=== PATIENT | male | born 1980 | race Caucasian/White ===

== ENCOUNTER 2017-12-03 11:15 | Emergency (ER) | payer OTHER, SELFPAY ==
[2017-12-03 16:08] LABS: BASO # 0.1 10^3/uL (0.0-0.2); BASO % 0.6 % (0.0-1.0); EOS # 0.4 10^3/uL (0.0-0.50); EOS % 4.8 % (0.0-3.0); HEMATOCRIT 49.7 % (42.0-52.0); HEMOGLOBIN 16.7 g/dl (14.0-18.0); IMMATURE GRANULOCYTE % 0.5 % (0-3.0); LYMPH # 2.4 10^3/uL (1.5-4.5); LYMPH % 28.9 % (24.0-44.0); MEAN CORPUSCULAR HEMOGLOBIN 30.8 pg (27.0-33.0); MEAN CORPUSCULAR HGB CONC 33.6 g/dl (32.0-36.5); MEAN CORPUSCULAR VOLUME 91.7 fl (80.0-96.0); MONO # 0.5 10^3/uL (0.0-0.8); MONO % 6.3 % (0.0-5.0); NEUTROPHILS # 4.8 10^3/uL (1.8-7.7); NEUTROPHILS % 58.9 % (36.0-66.0); PLATELET COUNT, AUTOMATED 160 10^3/uL (150-450); RED BLOOD COUNT 5.42 10^6/uL (4.30-6.10); RED CELL DISTRIBUTION WIDTH 12.5 % (11.5-14.5); WHITE BLOOD COUNT 8.1 10^3/uL (4.0-10.0)
[2017-12-03 16:29] LABS: POS COUNT POS FLAG
[2017-12-03 16:33] LABS: ANION GAP 8 MEQ/L (8-16); BLOOD UREA NITROGEN 14 MG/DL (7-18); CALCIUM LEVEL 8.9 MG/DL (8.5-10.1); CARBON DIOXIDE LEVEL 24 MEQ/L (21-32); CHLORIDE LEVEL 107 MEQ/L (98-107); CREATININE FOR GFR 0.92 MG/DL (0.70-1.30); GLOMERULAR FILTRATION RATE > 60.0 (>60); GLUCOSE, FASTING 79 MG/DL (70-100); NT-PRO BNP 59 PG/ML (<125); POTASSIUM SERUM 4.1 MEQ/L (3.5-5.1); SODIUM LEVEL 139 MEQ/L (136-145)
== END 2017-12-03 16:41 | disposition home or self-care (01) ==
LOC: M ED 11:15
DX: I10 Essential (primary) hypertension (principal); B18.2 Chronic viral hepatitis C; F17.200 Nicotine dependence, unspecified, uncomplicated

== ENCOUNTER → 2017-12-14 | Outpatient (REF) | payer OTHER ==
[2017-12-14 19:13] LABS: HEMATOCRIT 44.9 % (42.0-52.0); MEAN CORPUSCULAR HEMOGLOBIN 30.6 pg (27.0-33.0); MEAN CORPUSCULAR HGB CONC 33.4 g/dl (32.0-36.5); MEAN CORPUSCULAR VOLUME 91.6 fl (80.0-96.0); PLATELET COUNT, AUTOMATED 243 10^3/uL (150-450); RED CELL DISTRIBUTION WIDTH 12.4 % (11.5-14.5); WHITE BLOOD COUNT 9.2 10^3/uL (4.0-10.0)
[2017-12-14 19:31] LABS: ALBUMIN 4.3 GM/DL (3.2-5.2); ALBUMIN/GLOBULIN RATIO 1.19 (1.00-1.93); ALKALINE PHOSPHATASE 57 U/L (45-117); ALT/SGPT 14 U/L (12-78); ANION GAP 7 MEQ/L (8-16); AST/SGOT 16 U/L (7-37); BILIRUBIN,TOTAL 0.3 MG/DL (0.2-1.0); BLOOD UREA NITROGEN 16 MG/DL (7-18); CALCIUM LEVEL 9.1 MG/DL (8.5-10.1); CARBON DIOXIDE LEVEL 27 MEQ/L (21-32); CHLORIDE LEVEL 107 MEQ/L (98-107); CREATININE FOR GFR 0.93 MG/DL (0.70-1.30); GLOMERULAR FILTRATION RATE > 60.0 (>60); GLUCOSE, FASTING 88 MG/DL (70-100); SODIUM LEVEL 141 MEQ/L (136-145); TOTAL PROTEIN 7.9 GM/DL (6.4-8.2)
[2017-12-16 11:08] LABS: HEPATITIS B SURFACE ANTIBODY POSITIVE (POSITIVE)
[2017-12-16 11:15] LABS: HEPATITIS B SURFACE ANTIGEN NEGATIVE (NEGATIVE)
[2017-12-16 11:39] LABS: HIV 1&2 SCREEN CENTAUR NEGATIVE (NEGATIVE)
== END ==
LOC: M SFHCPLAZ 15:26
DX: Z11.59 Encounter for screening for other viral diseases (principal); I10 Essential (primary) hypertension

== ENCOUNTER → 2018-01-01 | Outpatient (REF) | payer MEDICAID, OTHER ==
[2018-01-01 13:24] LABS: CHOLESTEROL LEVEL 180 MG/DL (<200); HDL CHOLESTEROL 40 MG/DL (>40); LDL CHOLESTEROL 116.8 MG/DL (<100); NON-HDL-C 140 MG/DL; THYROID STIMULATING HORMONE 0.679 uIU/ML (0.358-3.740); TRIGLYCERIDES LEVEL 116 MG/DL (<150)
[2018-01-01 13:58] LABS: ESTIMATED AVERAGE GLUCOSE 126 MG/DL (60-110)
== END ==
LOC: M SFHCPLAZ 10:59
DX: Z13.1 Encounter for screening for diabetes mellitus (principal); Z13.6 Encounter for screening for cardiovascular disorders; Z13.29 Encounter for screening for other suspected endocrine disorder
CPT/HCPCS: 84443

== ENCOUNTER 2018-03-24 10:23 | Emergency (ER) | payer OTHER, MEDICAID ==
[2018-03-24] MEDS: NS 1,000 ML IV ×2 (11:30→12:51)
[2018-03-24 11:59] LABS: BASO % 0.5 % (0.0-1.0); EOS # 0.2 10^3/uL (0.0-0.50); EOS % 2.8 % (0.0-3.0); HEMATOCRIT 44.4 % (42.0-52.0); HEMOGLOBIN 14.9 g/dl (13.5-17.5); IMMATURE GRANULOCYTE % 0.3 % (0-3.0); LYMPH # 2.2 10^3/uL (1.5-4.5); LYMPH % 28.2 % (24.0-44.0); MEAN CORPUSCULAR HEMOGLOBIN 30.6 pg (27.0-33.0); MEAN CORPUSCULAR HGB CONC 33.6 g/dl (32.0-36.5); MEAN CORPUSCULAR VOLUME 91.2 fl (80.0-96.0); MONO # 0.6 10^3/uL (0.0-0.8); MONO % 7.9 % (0.0-5.0); NEUTROPHILS # 4.7 10^3/uL (1.8-7.7); NEUTROPHILS % 60.3 % (36.0-66.0); PLATELET COUNT, AUTOMATED 280 10^3/uL (150-450); RED BLOOD COUNT 4.87 10^6/uL (4.30-6.10); RED CELL DISTRIBUTION WIDTH 12.7 % (11.5-14.5); WHITE BLOOD COUNT 7.7 10^3/uL (4.0-10.0)
[2018-03-24 12:33] LABS: ALBUMIN 3.8 GM/DL (3.2-5.2); ALBUMIN/GLOBULIN RATIO 0.97 (1.00-1.93); ALKALINE PHOSPHATASE 64 U/L (45-117); ALT/SGPT 16 U/L (12-78); ANION GAP 6 MEQ/L (8-16); AST/SGOT 18 U/L (7-37); BILIRUBIN,TOTAL 0.5 MG/DL (0.2-1.0); BLOOD UREA NITROGEN 34 MG/DL (7-18); CALCIUM LEVEL 8.7 MG/DL (8.5-10.1); CARBON DIOXIDE LEVEL 27 MEQ/L (21-32); CHLORIDE LEVEL 108 MEQ/L (98-107); CPK CREATINE PHOSPHOKINASE 379 U/L (39-308); CREATININE FOR GFR 1.64 MG/DL (0.70-1.30); GLOMERULAR FILTRATION RATE 50.3 (>60); GLUCOSE, FASTING 87 MG/DL (70-100); MAGNESIUM LEVEL 2.1 MG/DL (1.8-2.4); SODIUM LEVEL 141 MEQ/L (136-145); THYROID STIMULATING HORMONE 0.242 uIU/ML (0.358-3.740); TOTAL PROTEIN 7.7 GM/DL (6.4-8.2)
[2018-03-24 13:04] LABS: APPEARANCE, URINE CLEAR (CLEAR); BACTERIA, URINE AUTO NEGATIVE (NEGATIVE); BILIRUBIN, URINE AUTO NEGATIVE (NEGATIVE); BLOOD, URINE BLOOD NEGATIVE (NEGATIVE); COLOR, URINE YELLOW (YELLOW); GLUCOSE, URINE (UA) AUTO 2+ mg/dL (NEGATIVE); KETONE, URINE AUTO NEGATIVE (NEGATIVE); LEUKOCYTE ESTERASE, URINE AUTO NEGATIVE (NEGATIVE); MUCUS, URINE SMALL (NEGATIVE); NITRITE, URINE AUTO NEGATIVE (NEGATIVE); PROTEIN, URINE AUTO NEGATIVE (NEGATIVE); RBC, URINE AUTO 0 /HPF (0-3); SPECIFIC GRAVITY URINE AUTO 1.021 (1.002-1.035); SQUAMOUS EPITHELIAL CELL UR AU 0 /HPF (0-6); WBC, URINE AUTO 1 /HPF (0-3)
[2018-03-24 13:08] LABS: MYOGLOBIN SCREEN, URINE NEGATIVE (NEGATIVE)
[2018-03-24 14:51] LABS: ANION GAP 5 MEQ/L (8-16); BLOOD UREA NITROGEN 32 MG/DL (7-18); CALCIUM LEVEL 7.9 MG/DL (8.5-10.1); CARBON DIOXIDE LEVEL 25 MEQ/L (21-32); CHLORIDE LEVEL 113 MEQ/L (98-107); CREATININE FOR GFR 1.31 MG/DL (0.70-1.30); GLOMERULAR FILTRATION RATE > 60.0 (>60); GLUCOSE, FASTING 95 MG/DL (70-100); POTASSIUM SERUM 3.9 MEQ/L (3.5-5.1); SODIUM LEVEL 143 MEQ/L (136-145)
== END 2018-03-24 15:05 | disposition home or self-care (01) ==
LOC: M ED 10:23
DX: E86.0 Dehydration (principal); M62.838 Other muscle spasm; I10 Essential (primary) hypertension; Z87.448 Personal history of other diseases of urinary system; Z79.899 Other long term (current) drug therapy; F17.200 Nicotine dependence, unspecified, uncomplicated
CPT/HCPCS: 82550

== ENCOUNTER → 2019-09-15 | Outpatient (CLI) | payer OTHER ==
[~2019-09-15] MED LIST: LISI-672; LISI10TA15 PO
--- NOTE | 2019-09-15 15:47 | REPPI ---
Clinical: Acute right knee pain. Technique: AP, lateral, bilateral oblique and sunrise views of the right knee. Findings: Osteophytosis along the femoral condyle and tibial plateau along with minimal increased sclerosis to the tibial surface and mild decreased joint space is appreciated. Stearns view demonstrates spurring along the lateral patellar margin. No acute fracture dislocation. No effusion. Impression: Mild osteoarthritic degenerative changes. Electronically Signed by Liavn Harding MD 09/15/2019 03:39 P
== END ==
LOC: M PLAIMG 15:25
PROVIDERS: ATTEND Student in an Organized Health Care Education/Training Program
DX: M25.561 Pain in right knee (principal)

== ENCOUNTER 2021-08-18 11:12 | Inpatient (IN) | payer OTHER ==
[~2021-08-18] VITALS: Ht 185.4 cm; Wt 116.2 kg
[2021-08-18] VITALS (10 sets, daily range): BP systolic 93–119; BP diastolic 52–64
[~2021-08-18 11:12] MED LIST changes: -LISI-672; +LISI30TA4
[2021-08-18] MEDS ORDERED: NS 1,000 ML IV SCH (11:15)
--- OUTSIDE RECORDS SUMMARY | 2021-08-18 11:15 | CCD ---
Author Author [facility] Organization [facility] Address Unknown Phone Unavailable Support Name Relationship Address Phone UE Next Of Kin Unknown Unavailable CRYSTAL KAPOOR Next Of Kin [address] [facility] [address] [place] [address] CRYSTAL KAPOOR [address] [place] [address] Unavailable Re-disclosure Warning The records that you are about to access may contain information from federally-assisted alcohol or drug abuse programs. If such information is present, then the following federally mandated warning applies: This information has been disclosed to you from records protected by federal confidentiality rules (42 CFR part 2). The federal rules prohibit you from making any further disclosure of this information unless further disclosure is expressly permitted by the written consent of the person to whom it pertains or as otherwise permitted by 42 CFR part 2. A general authorization for the release of medical or other information is NOT sufficient for this purpose. The Federal rules restrict any use of the information to criminally investigate or prosecute any alcohol or drug abuse patient.The records that you are about to access may contain highly sensitive health information, the redisclosure of which is protected by Article 27-F of the [facility] Public Health law. If you continue you may have access to information: Regarding HIV / AIDS; Provided by facilities licensed or operated by the [facility] Office of Mental Health; or Provided by the [facility] Office for People With Developmental Disabilities. If such information is present, then the following [facility] mandated warning applies: This information has been disclosed to you from confidential records which are protected by state law. State law prohibits you from making any further disclosure of this information without the specific written consent of the person to whom it pertains, or as otherwise permitted by law. Any unauthorized further disclosure in violation of state law may result in a fine or prison sentence or both. A general authorization for the release of medical or other information is NOT sufficient authorization for further disc losure. Encounters Encounter Providers Location Date Indications Data Source(s ) Unknown [address] [facility] [address] 07/31/2020 12:00:00 AM EST eCW1 ([facility]) Unknown [address] [facility] [place] [address] 06/20/2020 12:00:00 AM EDT eCW1 ([facility]) Immunizations Vaccine Date Status Description Data Source(s) COVID-19 VACCINE Moderna 01/31/2021 12:00:00 AM EDT completed [place] Vaccine Series Complete: YESThis Data wa s Submitted to [facility] Via [employer]. COVID-19 VACCINE Moderna 01/03/2021 12:00:00 AM EDT completed [place] Vaccine Series Complete: NOThis Data was Submitted to [facility] Via [employer]. Medications No Information Insurance Providers Payer name Policy type / Coverage type Policy ID Covered libertarian ID Covered libertarian's relationship to zazueta Policy Zazueta Plan Information [facility] [id number] SP [id number] [facility] O [id number] S [id number] ANSI-Not a Secondary Insurance [id number] ANSI-Medicaid [id number] ANSI-Medicaid [id number] ANSI-Medicaid [id number] ANSI-Not a Secondary Insurance [id number] ANSI-Medicaid [id number] [facility] COMM[facility]AN [facility] [id number] MEDICAID [id number] SP [id number] SELF PAY ONLY - SP1 SP SELF PAY ONLY [id number] SP [id number] SELF PAY O [id number] S [id number] [employer] [id number] SP [id number] Problems, Conditions, and Diagnoses No Information Surgeries/Procedures No Information Results No Information Social History No Information
[2021-08-18] MEDS ORDERED: MIDAZOLAM INJ 2MG/2ML VIAL (J2250 PER 1MG) IV STA (11:44)
[2021-08-18 11:56] LABS: ABG BASE EXCESS -16.3 (-2.0-2.0); ABG HCO3 17.9 MEQ/L (22.0-26.0); ABG O2 SATURATION 37.6 % (95.0-99.0); ABG STANDARD HCO3 11.4 MEQ/L (22.0-26.0); ABG TOTAL CO2 20.5 MEQ/L (22.0-29.0)
[2021-08-18 11:57] LABS: BASO % 0.3 % (0.0-1.0); EOS % 0.1 % (0.0-3.0); HEMATOCRIT 50.4 % (42.0-52.0); HEMOGLOBIN 15.3 g/dl (13.5-17.5); LYMPH # 0.8 10^3/uL (1.5-5.0); LYMPH % 5.6 % (24.0-44.0); MEAN CORPUSCULAR HEMOGLOBIN 29.3 pg (27.0-33.0); MEAN CORPUSCULAR HGB CONC 30.4 g/dl (32.0-36.5); MEAN CORPUSCULAR VOLUME 96.6 fl (80.0-96.0); MONO # 0.7 10^3/uL (0.0-0.8); MONO % 4.5 % (2.0-8.0); NEUTROPHILS # 13.2 10^3/uL (1.5-8.5); PLATELET COUNT, AUTOMATED 289 10^3/uL (150-450); RED BLOOD COUNT 5.22 10^6/uL (4.30-6.10); WHITE BLOOD COUNT 14.8 10^3/uL (4.0-10.0)
[2021-08-18 11:58] LABS: ABG PARTIAL PRESSURE CO2 85.5 mmHg (35.0-45.0); ABG pH (ARTERIAL) 6.938 UNITS (7.350-7.450)
[2021-08-18] MEDS ORDERED: SODIUM BICARBONATE 8.4% INJ 50 ML SYRINGE As Ordered ONE (11:58)
[2021-08-18] MEDS ORDERED: SODIUM BICARBONATE 8.4% INJ 50 ML SYRINGE IV STA (12:00)
[2021-08-18] MEDS ORDERED: NS 1,000 ML IV ONE (12:00)
--- OUTSIDE RECORDS SUMMARY | 2021-08-18 12:14 | CCD ---
Author Author [facility] Organization [facility] Address Unknown Phone Unavailable Support Name Relationship Address Phone UE Next Of Kin Unknown Unavailable CRYSTAL KAPOOR Next Of Kin [address] [facility] [address] [place] [address] CRYSTAL KAPOOR [address]CON [address] [place] [address] Unavailable Re-disclosure Warning The records that you [...] is protected by Article 27-F of the [facility] Public Health law. If you continue you may have access to information: Regarding HIV / AIDS; Provided by facilities licensed or operated by the [facility] Office of Mental Health; or Provided by the [facility] Office for People With Developmental Disabilities. If such information is present, then the following [facility] mandated warning applies: This information has been [...] law may result in a fine or shelter sentence or both. A general authorization for the release of medical or other information is NOT sufficient authorization for further disc losure. Encounters Encounter Providers Location Date Indications Data Source(s ) Unknown [address] [facility] [address] 07/31/2020 12:00:00 AM EST eCW1 ([facility]) Unknown [address] [facility] [place] [address] 06/20/2020 12:00:00 AM EDT eCW1 ([facility]) Immunizations Vaccine Date Status Description Data Source(s) COVID-19 VACCINE Moderna 01/31/2021 12:00:00 AM EDT completed [place] Vaccine Series Complete: YESThis Data wa s Submitted to [facility] Via [employer]. COVID-19 VACCINE Moderna 01/03/2021 12:00:00 AM EDT completed [place] Vaccine Series Complete: NOThis Data was Submitted to [facility] Via [employer]. Medications No Information Insurance Providers Payer name Policy type / Coverage type Policy ID Covered constitution party ID Covered constitution party's relationship to zazueta Policy Zazueta Plan Information FOR[facility]LY [facility] COMMUNITY PLAN [facility] [id number] SP [id number] [facility]) O [id number] S [id number] ANSI-Not a Secondary Insurance [id number] ANSI-Medicaid [id number] ANSI-Medicaid [id number] ANSI-Medicaid [id number] ANSI-Not a Secondary Insurance [id number] ANSI-Medicaid [id number] FOR[facility]LY [facility] COMMUNITY PLAN [facility] [id number] MEDICAID [id number] SP [id number] SELF PAY ONLY - SP1 SP SELF PAY ONLY [id number] SP [id number] SELF PAY O [id number] S [id number] [employer] [id number] SP [id number] Problems, Conditions, and Diagnoses No Information Surgeries/Procedures No Information Results No Information Social History No Information
[2021-08-18 12:18] LABS: VENOUS BASE EXCESS -17.6 (-2.0-2.0); VENOUS HCO3 16.4 MEQ/L (23.0-27.0); VENOUS O2 SATURATION 61.2 % (60.0-80.0); VENOUS PARTIAL PRESSURE CO2 79.4 mmHg (38.0-50.0); VENOUS PARTIAL PRESSURE O2 41.5 mmHg (30.0-50.0); VENOUS PH 6.933 UNITS (7.330-7.430); VENOUS STANDARD HCO3 11.1 MEQ/L; VENOUS TOTAL CO2 18.8 MEQ/L (24.0-28.0)
--- NOTE | 2021-08-18 12:26 | REP ---
INDICATION: altered. COMPARISON: None. TECHNIQUE: Contiguous 2 mm thick axial projection images were obtained through the cervical spine. 2D sagittal and coronal reconstructions were performed. FINDINGS: There is no evidence of fracture, dislocation or prevertebral soft tissue swelling. Limited unenhanced images of the soft tissues of the neck, the upper mediastinum and the lung apices are unremarkable. There is mild arthritis of the atlantodental joint. There is degenerative disc disease, C5-6 with narrowing of the intervertebral disc space and marginal osteophytes. There is bilateral facet arthropathy, C2-3 and C3-4. There is 2 mm of degenerative anterolisthesis of C2 on C3 and C3 on C4. IMPRESSION: 1. No evidence of acute bony or soft tissue injury. 2. Degenerative disc disease, C5-6. 3. Multilevel facet arthropathy with degenerative grade 1 anterolisthesis, C2-3 and C3-4. <Electronically signed by Иван Lopez > 08/18/21 [id number]
[2021-08-18 12:28] LABS: OSMOLALITY SERUM 298 MOSM/KG (275-295)
[2021-08-18 12:30] LABS: ACETAMINOPHEN LEVEL < 2.0 UG/ML (10.0-30.0); ALBUMIN 3.7 GM/DL (3.2-5.2); ALT/SGPT 104 U/L (12-78); BILIRUBIN,DIRECT 0.4 MG/DL (0.0-0.2); BILIRUBIN,TOTAL 0.7 MG/DL (0.2-1.0); BLOOD UREA NITROGEN 33 MG/DL (7-18); CALCIUM LEVEL 8.2 MG/DL (8.5-10.1); CARBON DIOXIDE LEVEL 20 MEQ/L (21-32); CHLORIDE LEVEL 99 MEQ/L (98-107); CREATININE FOR GFR 3.75 MG/DL (0.70-1.30); ETHYL ALCOHOL (ETHANOL) < 0.003 % (0.000-0.010); GLUCOSE, FASTING 88 MG/DL (70-100); POTASSIUM SERUM 4.5 MEQ/L (3.5-5.1); SALICYLATE LEVEL 6.2 MG/DL (5.0-30.0); SODIUM LEVEL 139 MEQ/L (136-145); THYROID STIMULATING HORMONE 0.292 uIU/ML (0.358-3.740); TOTAL PROTEIN 7.4 GM/DL (6.4-8.2)
[2021-08-18] MEDS ORDERED: REFRIGERATOR IV KEYS XX PRN ×3 (12:30→17:25)
[2021-08-18] MEDS ORDERED: MIDAZOLAM HCL 100 MG in D5W 80 ML IV SCH (12:30)
--- NOTE | 2021-08-18 12:31 | REP ---
INDICATION: Altered Mental Status. COMPARISON: None. TECHNIQUE: Contiguous 5 mm thick axial projection images were obtained through the head. 2D coronal reconstructions were performed. FINDINGS: There is no evidence of acute intracranial hemorrhage or infarction. There are no abnormal intracranial masses or mass effect. The skull base and calvarium are normal. There is a mucous retention cyst or polyp in the right maxillary sinus. There is a mucous retention cyst or polyp at the left ostiomeatal infundibulum. The intraorbital contents and visualized extracranial soft tissues are unremarkable. IMPRESSION: 1. No evidence of intracranial pathology. 2. Chronic bilateral maxillary sinusitis. <Electronically signed by Иван Lopez > 08/18/21 [id number]
[2021-08-18 12:34] LABS: RSV AMPLIFICATION NEGATIVE (NEGATIVE)
[2021-08-18] MEDS ORDERED: NS 3,690 ML in IV 1 EA IV ONE (12:40)
--- NOTE | 2021-08-18 12:49 | REP ---
INDICATION: Altered Mental Status. COMPARISON: PA and lateral chest, 12/03/2017 TECHNIQUE: AP portable chest image was obtained. FINDINGS: There is an endotracheal tube present with the tip 3.5 cm above the moe. There is diffuse bilateral mixed interstitial and alveolar lung disease consistent with pneumonia and or pulmonary edema. There are no pleural effusions. The heart size is upper limits of normal. IMPRESSION: 1. Endotracheal tube in good position. 2. Mixed interstitial and alveolar airspace disease consistent with pneumonia and or pulmonary edema. <Electronically signed by Иван Lopez > 08/18/21 1171
[2021-08-18 12:52] LABS: ABG BASE EXCESS -18.3 (-2.0-2.0); ABG HCO3 15.4 MEQ/L (22.0-26.0); ABG O2 SATURATION 95.2 % (95.0-99.0); ABG PARTIAL PRESSURE O2 104.8 mmHg (75.0-100.0); ABG STANDARD HCO3 11.3 MEQ/L (22.0-26.0); ABG TOTAL CO2 17.6 MEQ/L (22.0-29.0)
[2021-08-18 12:55] LABS: ABG PARTIAL PRESSURE CO2 74.2 mmHg (35.0-45.0); ABG pH (ARTERIAL) 6.934 UNITS (7.350-7.450)
[2021-08-18] MEDS ORDERED: cefTRIAXone SOD 2 GM in D5W MINI-BAG PLUS 50 ML IV ONE (13:25)
[2021-08-18 13:48] LABS: ABG BASE EXCESS -12.6 (-2.0-2.0); ABG HCO3 20.2 MEQ/L (22.0-26.0); ABG O2 SATURATION 53.2 % (95.0-99.0); ABG TOTAL CO2 22.6 MEQ/L (22.0-29.0)
[2021-08-18 13:51] LABS: ABG PARTIAL PRESSURE CO2 80.4 mmHg (35.0-45.0); ABG PARTIAL PRESSURE O2 35.6 mmHg (75.0-100.0); ABG pH (ARTERIAL) 7.017 UNITS (7.350-7.450)
[2021-08-18 13:51] LABS: AMPHETAMINES LEVEL URINE POSITIVE (NEGATIVE); BARBITURATES URINE NEGATIVE (NEGATIVE); BENZODIAZEPINES URINE NEGATIVE (NEGATIVE); CANNABINOIDS URINE POSITIVE (NEGATIVE); COCAINE METABOLITE URINE POSITIVE (NEGATIVE); METHADONE URINE NEGATIVE (NEGATIVE); OPIATES URINE NEGATIVE (NEGATIVE); PHENCYCLIDINE URINE NEGATIVE (NEGATIVE)
[2021-08-18] MEDS ORDERED: NALOXONE 2MG/2ML SYRINGE (J2310 PER 1MG) IV STA (14:19)
[2021-08-18 14:42] LABS: MAGNESIUM LEVEL 3.9 MG/DL (1.8-2.4); PHOSPHORUS LEVEL 13.2 MG/DL (2.5-4.9)
[2021-08-18] MEDS ORDERED: HOME MED LIST COMPLETE! XX SCH (15:15)
[2021-08-18] MEDS ORDERED: fentaNYL CITRATE 1,000 MCG in NS 80 ML IV SCH (15:20)
--- OUTSIDE RECORDS SUMMARY | 2021-08-18 15:26 | CCD ---
Author Author [facility] Organization [facility] Address Unknown Phone Unavailable Support Name Relationship Address Phone UE Next Of Kin Unknown Unavailable CRYSTAL KAPOOR Next Of Kin [address] [facility] [address] [place] [address] CRYSTAL KAPOOR [address] [place] [address] Unavailable Re-disclosure Warning The records that you [...] is protected by Article 27-F of the [facility] Public Health law. If you continue you may have access to information: Regarding HIV / AIDS; Provided by facilities licensed or operated by the [facility] Office of Mental Health; or Provided by the [facility] Office for People With Developmental Disabilities. If such information is present, then the following [facility] mandated warning applies: This information has [...] law may result in a fine or skilled nursing sentence or both. A general authorization for the release of medical or other information is NOT sufficient authorization for further disc losure. Encounters Encounter Providers Location Date Indications Data Source(s ) Unknown [address] [facility] [address] [place] [address] 07/31/2020 12:00:00 AM EST eCW1 ([facility]) Unknown [address] [facility] [address] 06/20/2020 12:00:00 AM EDT eCW1 ([facility]) Immunizations Vaccine Date Status Description Data Source(s) COVID-19 VACCINE Moderna 01/31/2021 12:00:00 AM EDT completed [place] Vaccine Series Complete: YESThis Data wa s Submitted to [facility] Via [employer]. COVID-19 VACCINE Moderna 01/03/2021 12:00:00 AM EDT completed [place] Vaccine Series Complete: NOThis Data was Submitted to [facility] Via [employer]. Medications No Information Insurance Providers Payer name Policy type / Coverage type Policy ID Covered republican ID Covered republican's relationship to zazueta Policy Zazueta Plan Information [facility] COMMUNITY PLAN [facility] [id number] SP [id number] [facility] O [id number] S [id number] ANSI-Not a Secondary Insurance [id number] ANSI-Medicaid [id number] ANSI-Medicaid [id number] ANSI-Medicaid [id number] ANSI-Not a Secondary Insurance [id number] ANSI-Medicaid [id number] FORMERLY [facility] COMMUNITY PLAN [facility] [id number] MEDICAID [id number] SP [id number] SELF PAY ONLY - SP1 SP SELF PAY ONLY [id number] SP [id number] SELF PAY O [id number] S [id number] [employer] [id number] SP [id number] Problems, Conditions, and Diagnoses No Information Surgeries/Procedures No Information Results No Information Social History No Information
[2021-08-18 15:30] LABS: ABG BASE EXCESS -11.8 (-2.0-2.0); ABG HCO3 19.7 MEQ/L (22.0-26.0); ABG PARTIAL PRESSURE CO2 70.6 mmHg (35.0-45.0); ABG PARTIAL PRESSURE O2 55.6 mmHg (75.0-100.0); ABG STANDARD HCO3 15.1 MEQ/L (22.0-26.0); ABG TOTAL CO2 21.8 MEQ/L (22.0-29.0); ABG pH (ARTERIAL) 7.063 UNITS (7.350-7.450)
--- NOTE | 2021-08-18 15:57 | HPEPDOC ---
[facility] Medical History & Physical Date of Admission Aug 18, 2021 Date of Service: Aug 18, 2021 Attending Physician: LULA OLIVO MD History and Physical REASON FOR CRITICAL CARE CONSULTATION/CHIEF COMPLAINT: Respiratory failure HISTORY OF PRESENT ILLNESS: 41-year-old male with a notable past medical history of polysubstance abuse was brought in by ambulance for altered mental status. Earlier today a friend called the police to perform a wellness check on the patient as he was unheard of for the past few days. On arrival the patient was minimally responsive. When he arrived to the emergency department he was hemodynamically stable though he was hypothermic and slightly hypoxic requiring nasal cannula. He was he was agitated and was given Ativan to facilitate cooperation with radiology for chest and head imaging. Afterward he became obtunded and had respiratory depression he was given Narcan and his response was severe agitation and combativeness. His blood work came back revealing combined metabolic and respiratory acidosis with a pH of 6.9. He was subsequently intubated and placed mechanical ventilation. Patient is seen and examined at bedside currently. Patient is c omfortable on mechanical ventilation. Patient is on Versed drip. Patient is not on any pressors. PAST MEDICAL/SURGICAL HISTORY: Hypertension and obesity FAMILY HISTORY: Unable to obtain SOCIAL HISTORY: Per the records he has a history of polysubstance abuse ALLERGIES: Please see below. HOME MEDICATIONS: Please see below. REVIEW OF SYSTEMS: Unable to obtain as patient is sedated on mechanical ventilation PHYSICAL EXAMINATION: VITAL SIGNS: Please see below. GENERAL APPEARANCE: Sedated HEENT: ET tube in place. No thyromegaly, trachea midline, pupils are pinpoint, normal mucous membranes RESPIRATORY: CTA B/L, good air entry. CARDIOVASCULAR: +s1 s2, no murmurs. ABDOMEN: nontender, not distended, +BS EXTREMITIES: no edema or erythema. palpable distal pulses SKIN: no rash, no purpura NEUROLOGICAL: Sedated and unresponsive LABS/IMAGING: Chest x-ray today shows that the ET tube is in appropriate position. Mixed interstitial and alveolar opacities bilaterally. IMPRESSION: The most critical problems requiring my immediate presence at bedside are: 1. Acute hypercapnic respiratory failure likely secondary to drug overdose with evidence of amphetamines, cocaine, THC in urine 2. ISABELLA nonoliguric likely prerenal with combined metabolic and respiratory acidosis. Normal osmolar gap. 3. Rhabdomyolysis 4. Moderate hypothermia 5. Lactic acidosis 6. Transaminitis hepatocellular pattern PLAN: TEAM PRIMARY CARE PHYSICIAN: Versed and fentanyl for light sedation. Active external rewarming with warming blankets in radiant heat. PULM: HOB 30 degrees. Maintain Sp02 94-98%. Titrate down oxygen as tolerated. Vent changes as follows respiratory rate 24, tidal volume 560. Repeat ABG in 1 hour CARDIO: Maintain MAPs 60-65. LR 75 cc an hour. Follow-up lactate GI: GI ppx. NPO RENAL: monitor Ro sevilla ID: Empiric coverage for sepsis with Vanco and cefepime, panculture ENDO: Monitor FS per routine. Goal range 140-180. HEME: DVT ppx LINES/CATHETERS: Femoral central line. CODE STATUS: Full code. DISPOSITION: ICU. A total of 66 minutes of critical care time was spent on patient care, not including procedures Vital Signs Vital Signs Date Time Temp Pulse Resp B/P (MAP) Pulse Ox O2 Delivery O2 Flow Rate FiO2 08/18/21 14:30 91.8 104/57 (73) 08/18/21 14:27 63 100 08/18/21 13:12 Ventilator 08/18/21 12:50 100 08/18/21 12:27 15 5.0 Laboratory Data Labs 24H Laboratory Tests 2 08/18/21 11:15: Immature Granulocyte % (Auto) 0.5, Neutrophils (%) (Auto) 89.0H, Lymphocytes (%) (Auto) 5.6L, Monocytes (%) (Auto) 4.5, Eosinophils (%) (Auto) 0.1, Basophils (%) (Auto) 0.3, Neutrophils # (Auto) 13.2H, Lymphocytes # (Auto) 0.8L, Monocytes # (Auto) 0.7, Eosinophils # (Auto) 0.0, Basophils # (Auto) 0.0, Nucleated Red Blood Cells % (auto) 0.0, Anion Gap 20H, Glomerular Filtration Rate 19.0L, Osmolality 298H, Lactic Acid Level 8.1*H, Calcium Level 8.2L, Phosphorus Level 13.2H, Magnesium Level 3.9H, Total Bilirubin 0.7, Direct Bilirubin 0.4H, Aspartate Amino Transf (AST/SGOT) 393H, Alanine Aminotransferase (ALT/SGPT) 104H, Alkaline Phosphatase 135H, Ammonia 99H, Total Protein 7.4, Albumin 3.7, Albumin/Globulin Ratio 1.0, Thyroid Stimulating Hormone (TSH) 0.292L, Salicylates Level 6.2, Acetaminophen Level < 2.0L, Ethyl Alcohol Level < 0.003 08/18/21 11:45: Blood Gas Bicarbonate Standard 11.1, Venous Blood pH 6.933L, Venous Blood Partial Pressure CO2 79.4H, Venous Blood Partial Pressure O2 41.5, Venous Blood Total Carbon Dioxide 18.8L, Venous Blood HCO3 16.4L, Venous Blood Oxygen Saturation 61.2, Venous Blood Base Excess -17.6L 08/18/21 11:46: Blood Gas Bicarbonate Standard 11.4L, Arterial Blood pH 6.938*L, Arterial Blood Partial Pressure CO2 85.5*H, Arterial Blood Partial Pressure O2 28.0*L, Arterial Blood Total CO2 20.5L, Arterial Blood HCO3 17.9L, Arterial Blood Base Excess - 16.3L, Arterial Blood Oxygen Saturation 37.6L 08/18/21 11:47: POC Glucose (Misc Panel) 90, POC Sodium (Misc Panel) 136, POC Potassium (Misc Panel) 4.1, POC Chloride (Misc Panel) 98, POC Total CO2 (Misc Panel) 24.0, POC Blood Urea Nitrogen (Misc Panel 36H, POC Ionized Calcium (Misc Panel) 4.2L, POC Creatinine (Misc Panel) 3.4H, POC Hematocrit (Misc Panel) 50.0 08/18/21 11:52: Total Creatine Kinase 4872H 08/18/21 11:53: Coronavirus (COVID-19)(PCR) NEGATIVE, Influenza Type A (RT-PCR) NEGATIVE, Influenza Type B (RT-PCR) NEGATIVE, Respiratory Syncytial Virus (PCR) NEGATIVE 08/18/21 12:15: Bedside Glucose (Misc Panel) 75 08/18/21 12:37: Blood Gas Bicarbonate Standard 11.3L, Arterial Blood pH 6.934*L, Arterial Blood Partial Pressure CO2 74.2*H, Arterial Blood Partial Pressure O2 104.8H, Arterial Blood Total CO2 17.6L, Arterial Blood HCO3 15.4L, Arterial Blood Base Excess - 18.3L, Arterial Blood Oxygen Saturation 95.2 08/18/21 13:19: Bedside Glucose (Misc Panel) 85 08/18/21 13:27: Urine Opiates Screen NEGATIVE, Urine Methadone Screen NEGATIVE, Urine Barbitu rates Screen NEGATIVE, Urine Phencyclidine Screen NEGATIVE, Urine Amphetamines Screen POSITIVEH, Urine Benzodiazepines Screen NEGATIVE, Urine Cocaine Metabolite Screen POSITIVEH, Urine Cannabinoids Screen POSITIVEH 08/18/21 13:43: Blood Gas Bicarbonate Standard 14.0L, Arterial Blood pH 7.017*L, Arterial Blood Partial Pressure CO2 80.4*H, Arterial Blood Partial Pressure O2 35.6*L, Arterial Blood Total CO2 22.6, Arterial Blood HCO3 20.2L, Arterial Blood Base Excess - 12.6L, Arterial Blood Oxygen Saturation 53.2L 08/18/21 15:21: CBC/BMP Laboratory Tests 08/18/21 11:15 Home Medications No Active Prescriptions or Reported Meds Allergies Coded Allergies: No Known Allergies (Unverified , 12/03/17) A-FIB/CHADSVASC A-FIB History Current/History of A-Fib/PAF?: No Current PO Anticoag Therapy: No LULA OLIVO MD Aug 18, 2021 15:57
[2021-08-18] MEDS ORDERED: LR 1,000 ML IV SCH (16:05)
[2021-08-18] MEDS ORDERED: VANCOMYCIN INTERMITTENT/PULSE DOSING BY CLINICAL PHARMACIST PER DOSING PROTOCOL XX SCH (16:15)
[2021-08-18 16:54] LABS: ABG BASE EXCESS -10.7 (-2.0-2.0); ABG HCO3 18.3 MEQ/L (22.0-26.0); ABG O2 SATURATION 93.2 % (95.0-99.0); ABG PARTIAL PRESSURE O2 76.3 mmHg (75.0-100.0); ABG TOTAL CO2 19.9 MEQ/L (22.0-29.0)
[2021-08-18 16:55] LABS: ABG pH (ARTERIAL) 7.156 UNITS (7.350-7.450)
[2021-08-18] MEDS ORDERED: VANCOMYCIN HCL 1,000 MG, VIAL MATE ADAPTER 1 EACH in NS 250 ML IV ONE ×2 (17:00→18:00)
[2021-08-18] MEDS ORDERED: PROPOFOL 1,000 MG/100 ML VIAL As Ordered ONE (17:25)
--- NOTE | 2021-08-18 17:25 | ECGEPIP ---
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
[2021-08-18] MEDS ORDERED: SUCCINYLCHOLINE 100 MG/5 ML SYRINGE (J0330) ONE (18:06)
[2021-08-18] MEDS ORDERED: ETOMIDATE INJ 20MG/10ML VIAL ONE (18:06)
[2021-08-18] MEDS: CEFEPIME HCL 2 GM in D5W MINI-BAG PLUS 50 ML IV SCH (18:09)
[2021-08-18] MEDS: fentaNYL CITRATE 1,000 MCG in NS 80 ML IV SCH (18:09)
[2021-08-18] MEDS: propofoL 1,000 MG in IV 1 EA IV SCH ×3 (18:09→22:55)
[2021-08-18] MEDS: SODIUM BICARBONATE 150 MEQ in D5W 1,000 ML IV SCH (18:09)
[2021-08-18] MEDS: MIDAZOLAM INJ 2MG/2ML VIAL (J2250 PER 1MG) IV PRN (18:10)
[2021-08-18] MEDS: MIDAZOLAM HCL 100 MG in D5W 80 ML IV SCH (20:00)
[2021-08-18] MEDS: CHLORHEXIDINE GLUCONATE 0.12 % 15ML UDC (PERIDEX ORAL RINSE) MT SCH (20:02)
[2021-08-18] MEDS: HEPARIN SOD (PORCINE) 5000UNITS/ML 1ML VIAL/SYRINGE SC SCH (21:29)
[2021-08-19] VITALS (31 sets, daily range): BP systolic 106–158; BP diastolic 55–84
[2021-08-19] MEDS: propofoL 1,000 MG in IV 1 EA IV SCH ×6 (02:26→21:48)
[2021-08-19] MEDS: CEFEPIME HCL 2 GM in D5W MINI-BAG PLUS 50 ML IV SCH ×2 (03:02→15:23)
[2021-08-19 03:38] LABS: MEAN CORPUSCULAR HEMOGLOBIN 29.8 pg (27.0-33.0); MEAN CORPUSCULAR HGB CONC 33.3 g/dl (32.0-36.5); MEAN CORPUSCULAR VOLUME 89.4 fl (80.0-96.0); PLATELET COUNT, AUTOMATED 210 10^3/uL (150-450); WHITE BLOOD COUNT 7.4 10^3/uL (4.0-10.0)
[2021-08-19 04:02] LABS: EOSINOPHILS 1 % (0-3); LYMPHOCYTES 7 % (16-44); METAMYELOCYTES 6 % (0-0); MONOCYTES 1 % (0-5); MYELOCYTES 1 % (0-0); NEUTROPHILS 80 % (28-66); PLATELET ESTIMATE NORMAL (NORMAL)
[2021-08-19 04:13] LABS: ALBUMIN 2.9 GM/DL (3.2-5.2); CALCIUM LEVEL 6.9 MG/DL (8.5-10.1); CREATININE FOR GFR 2.69 MG/DL (0.70-1.30); GLOMERULAR FILTRATION RATE 27.8 (>60); PHOSPHORUS LEVEL 7.6 MG/DL (2.5-4.9); TOTAL PROTEIN 5.9 GM/DL (6.4-8.2); VANCOMYCIN RANDOM 18.7 UG/ML
[2021-08-19] MEDS: SODIUM BICARBONATE 150 MEQ in D5W 1,000 ML IV SCH (04:47)
[2021-08-19] MEDS: HEPARIN SOD (PORCINE) 5000UNITS/ML 1ML VIAL/SYRINGE SC SCH ×3 (05:00→21:23)
[2021-08-19 05:57] LABS: ABG BASE EXCESS -2.4 (-2.0-2.0); ABG HCO3 22.7 MEQ/L (22.0-26.0); ABG PARTIAL PRESSURE CO2 40.2 mmHg (35.0-45.0); ABG PARTIAL PRESSURE O2 96.7 mmHg (75.0-100.0); ABG STANDARD HCO3 22.5 MEQ/L (22.0-26.0); ABG TOTAL CO2 23.9 MEQ/L (22.0-29.0); ABG pH (ARTERIAL) 7.369 UNITS (7.350-7.450)
[2021-08-19] MEDS ORDERED: VANCOMYCIN HCL 1,000 MG, VIAL MATE ADAPTER 1 EACH in NS 250 ML IV ONE (06:00)
--- NOTE | 2021-08-19 08:09 | REP ---
INDICATION: INTUBATED COMPARISON: One a 1 TECHNIQUE: Portable AP view of the chest FINDINGS: Endotracheal tube 3 cm above the moe. Nasogastric tube courses below left hemidiaphragm. Mediastinum and cardiac silhouette are normal. Lower lobe airspace disease may be slightly improved from prior examination. However left lower lobe/retrocardiac consolidation appears slightly more prominent than prior examination. No effusion. No pneumothorax. IMPRESSION: Question increasing left lower lobe/retrocardiac consolidation. <Electronically signed by Livan Harding > 08/19/21 0836
[2021-08-19] MEDS: CHLORHEXIDINE GLUCONATE 0.12 % 15ML UDC (PERIDEX ORAL RINSE) MT SCH ×2 (09:05→20:40)
[2021-08-19] MEDS: PANTOPRAZOLE 40MG VIAL (C9113 PER 1) IV SCH (09:05)
[2021-08-19] MEDS: fentaNYL CITRATE 1,000 MCG in NS 80 ML IV SCH (09:50)
--- NOTE | 2021-08-19 09:50 | REP ---
INDICATION: hypoxemia COMPARISON: None TECHNIQUE: Axial noncontrast images from the thoracic inlet to the upper abdomen with coronal and sagittal reformations. This CT examination was performed using the following dose reduction techniques: Automated exposure control, adjustment of mA and/or kv according to the patient's size, and use of iterative reconstruction technique. FINDINGS: Small to moderate bilateral pleural effusions along with lower lobe consolidations are identified as well as subtle patchy perihilar infiltrates (left greater than right) and mild prominent pulmonary vasculature/interstitial markings. IMPRESSION: Differential diagnosis includes multifocal pneumonia and pulmonary vascular congestion. <Electronically signed by Livan Harding > 08/19/21 0922
--- NOTE | 2021-08-19 09:55 | IPNPDOC ---
Text Note Date of Service The patient was seen on 08/19/21. NOTE CRITICAL CARE PROGRESS NOTE: SUBJECTIVE: Patient seen and examined at bedside. There were no overnight events. Patient remains on mechanical ventilation. He is currently on fentanyl 50/h, Versed 4/h, propofol 40/h. He is on D5W with bicarb at 100 cc/h. His T-max is 99.9. He is positive fluid balance at 1939. He has good urine output. All other ROS are negative except as mentioned above PHYSICAL EXAMINATION: VITAL SIGNS: Please see below. GENERAL APPEARANCE: On mechanical ventilation HEENT: ET tube in place. No thyromegaly, trachea midline, PERRLA. normal mucous membranes RESPIRATORY: CTA B/L, good air entry. CARDIOVASCULAR: +s1 s2, no murmurs. ABDOMEN: nontender, not distended, +BS EXTREMITIES: Multiple small punctate skin lesions on arms and legs.. No edema or erythema. palpable distal pulses SKIN: no purpura NEUROLOGICAL: Sedated, does not follow commands and does not withdrawal to pain. Positive brainstem reflex PERTINENT LABS/IMAGING: Chest x-ray from this morning ET tube, OG tube are in good position. Increased interstitial markings. IMPRESSION: 1. Acute hypercapnic/hypoxic respiratory failure improved, secondary to drug overdose with evidence of amphetamines, cocaine, THC in urine 2. Sepsis present on admission secondary to community acquired pneumonia possible aspiration 3. ISABELLA nonoliguric likely prerenal with combined metabolic and respiratory acidosis. Normal osmolar gap. 4. Rhabdomyolysis 5. Hypothermia resolved 6. Lactic acidosis improved 7. Transaminitis hepatocellular pattern improved 8. 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 Titrate down propofol drip to assess mental status. PULM: HOB 30 degrees. Maintain Sp02 94-98%. Titrate down oxygen as tolerated. ABG this morning pH 7.36 CO2 40 O2 96 on 70/5/24/560. Will increase PEEP to 8. Will order CT chest noncontrast to further evaluate the cxr. CARDIO: Maintain MAPs 60-65. Not requiring pressors. Continue with IV fluids. Follow-up lactate. GI: GI ppx. Start trickle feeds at 15 cc an hour and advance to goal. RENAL: monitor Ro sevilla. LR 75cc/h. Follow-up BMP at 4 PM. Monitor CK level. ID: Empiric coverage for sepsis with Vanco and cefepime, panculture ENDO: Monitor FS per routine. Goal range 140-180. HEME: DVT ppx LINES/CATHETERS: Femoral central line. CODE STATUS: Full code. DISPOSITION: ICU. A total of 55 minutes of critical care time was spent on patient care, not including procedures VS,Fishbone, I+O VS, Fishbone, I+O Laboratory Tests 08/18/21 11:15 08/19/21 03:13 Vital Signs Date Time Temp Pulse Resp B/P (MAP) Pulse Ox O2 Delivery O2 Flow Rate FiO2 08/19/21 08:01 100 24 97 70 08/19/21 06:00 99.9 120/77 (91) Ventilator 08/18/21 12:27 5.0 I&O- Last 24 Hours up to 6 AM 08/19/21 06:00 Intake Total 4466 ml Output Total 1875 ml Balance 2591 ml LULA OLIVO MD Aug 19, 2021 09:55
[2021-08-19] MEDS: MIDAZOLAM INJ 2MG/2ML VIAL (J2250 PER 1MG) IV PRN (10:55)
--- NOTE | 2021-08-19 10:56 | ROOPDOC ---
[facility] Report Of Operation Report of Operation Procedure: Bronchoscopy for bilateral lower lobe aspiration pneumonia Consent: Consent obtained from mother jose moore over telephone as she is in [place]. Risks and benefits detailed and she communicated understanding. Indication: airway surveillance, secretion clearance Monitoring: EKG, blood pressure, pulse oximetry Anesthesia: IV sedation Physician: Dr. Mathias Equipment: Regular bronchoscope Complications: none. Patient tolerated procedure well. Findings.patient was sedated and FiO2 turned up to 100%. A bronchoscope was lubricated and introduced through the indwelling ETT in the standard fashion. Bronchoscope was advanced to the bilateral lungs and to the segmental lobes. There were no endobronchial lesions. There were copious thick white secretions in the lower lobes bilaterally which were suctioned. Specimens: Bronchial wash was sent for sputum culture and Gram stain. LULA MATHIAS MD Aug 19, 2021 10:56
[2021-08-19] MEDS: LR 1,000 ML IV SCH ×2 (12:42→21:05)
[2021-08-19] MEDS ORDERED: LR 1,000 ML IV ONE (17:10)
[2021-08-19 17:21] LABS: CALCIUM LEVEL 7.1 MG/DL (8.5-10.1); CREATININE FOR GFR 2.64 MG/DL (0.70-1.30); GLOMERULAR FILTRATION RATE 28.5 (>60); POTASSIUM SERUM 3.8 MEQ/L (3.5-5.1)
[2021-08-19] MEDS: MIDAZOLAM HCL 100 MG in D5W 80 ML IV SCH (18:45)
[2021-08-19 21:43] LABS: CALCIUM LEVEL 7.1 MG/DL (8.5-10.1); CREATININE FOR GFR 2.52 MG/DL (0.70-1.30); POTASSIUM SERUM 3.9 MEQ/L (3.5-5.1)
[2021-08-20] VITALS (39 sets, daily range): BP systolic 106–179; BP diastolic 59–85
[2021-08-20] MEDS: propofoL 1,000 MG in IV 1 EA IV SCH ×5 (00:56→20:47)
[2021-08-20] MEDS: fentaNYL CITRATE 1,000 MCG in NS 80 ML IV SCH (02:19)
[2021-08-20] MEDS: CEFEPIME HCL 2 GM in D5W MINI-BAG PLUS 50 ML IV SCH (03:05)
[2021-08-20 04:18] LABS: HEMATOCRIT 39.7 % (42.0-52.0); HEMOGLOBIN 13.1 g/dl (13.5-17.5); MEAN CORPUSCULAR HEMOGLOBIN 29.8 pg (27.0-33.0); MEAN CORPUSCULAR VOLUME 90.4 fl (80.0-96.0); PLATELET COUNT, AUTOMATED 202 10^3/uL (150-450); RED BLOOD COUNT 4.39 10^6/uL (4.30-6.10); WHITE BLOOD COUNT 14.2 10^3/uL (4.0-10.0)
[2021-08-20 04:45] LABS: EOSINOPHILS 2 % (0-3); LYMPHOCYTES 2 % (16-44); METAMYELOCYTES 1 % (0-0); MONOCYTES 2 % (0-5); NEUTROPHILS 81 % (28-66)
[2021-08-20 04:46] LABS: DOHLE BODIES 1+; PLATELET CLUMPS SMALL AMT; PLATELET ESTIMATE NORMAL (NORMAL); TOXIC VACUOLATION 1+
[2021-08-20 04:54] LABS: ALBUMIN 2.3 GM/DL (3.2-5.2); BILIRUBIN,TOTAL 0.8 MG/DL (0.2-1.0); CALCIUM LEVEL 7.3 MG/DL (8.5-10.1); CREATININE FOR GFR 2.14 MG/DL (0.70-1.30); GLOMERULAR FILTRATION RATE 36.3 (>60); MAGNESIUM LEVEL 2.6 MG/DL (1.8-2.4); PHOSPHORUS LEVEL 3.3 MG/DL (2.5-4.9); POTASSIUM SERUM 3.7 MEQ/L (3.5-5.1); TOTAL PROTEIN 5.5 GM/DL (6.4-8.2); VANCOMYCIN RANDOM 9.8 UG/ML
[2021-08-20] MEDS: HEPARIN SOD (PORCINE) 5000UNITS/ML 1ML VIAL/SYRINGE SC SCH ×3 (05:26→21:37)
[2021-08-20 06:20] LABS: ABG BASE EXCESS 3.8 (-2.0-2.0); ABG HCO3 28.8 MEQ/L (22.0-26.0); ABG O2 SATURATION 93.4 % (95.0-99.0); ABG PARTIAL PRESSURE CO2 44.8 mmHg (35.0-45.0); ABG PARTIAL PRESSURE O2 69.7 mmHg (75.0-100.0); ABG STANDARD HCO3 27.8 MEQ/L (22.0-26.0); ABG TOTAL CO2 30.2 MEQ/L (22.0-29.0); ABG pH (ARTERIAL) 7.426 UNITS (7.350-7.450)
[2021-08-20] MEDS ORDERED: VANCOMYCIN HCL 1,000 MG, VIAL MATE ADAPTER 1 EACH in NS 250 ML IV ONE (08:00)
[2021-08-20] MEDS: CHLORHEXIDINE GLUCONATE 0.12 % 15ML UDC (PERIDEX ORAL RINSE) MT SCH ×2 (09:11→20:31)
[2021-08-20] MEDS: PANTOPRAZOLE 40MG VIAL (C9113 PER 1) IV SCH (09:11)
--- NOTE | 2021-08-20 09:44 | REP ---
INDICATION: INTUBATED. COMPARISON: 08/19/2021. TECHNIQUE: Single portable AP view of the chest was performed. FINDINGS: Bibasilar infiltrates and effusions are mildly increased. The heart and mediastinum are unremarkable and unchanged. Endotracheal tube tip is 3.8 cm above the moe. Nasogastric tube traverses into the stomach, the distal tip is not visualized. IMPRESSION: Mild increase in bibasilar infiltrates and effusions. <Electronically signed by Jack Tyler > 08/20/21 0929
--- NOTE | 2021-08-20 10:09 | IPNPDOC ---
Text Note Date of Service The patient was seen on 08/20/21. NOTE CRITICAL CARE PROGRESS NOTE: SUBJECTIVE: Patient seen and examined at bedside. Patient remains on mechanical ventilation. Yesterday evening there was reduced urine output in the Starr was noted to be obstructed. It was removed and a new Starr was placed and the urine output improved. He is currently on fentanyl at 50, Versed 4 and propofol 40. He is on LR 75 cc an hour. He is tolerating his OG feeds. His T-max is 100.2. He has a positive fluid balance of 1773 and good urine output. All other ROS are negative except as mentioned above PHYSICAL EXAMINATION: VITAL SIGNS: Please see below. GENERAL APPEARANCE: On mechanical ventilation. HEENT: ET tube in place. No thyromegaly, trachea midline, PERRLA. normal mucous membranes RESPIRATORY: CTA B/L, good air entry. CARDIOVASCULAR: +s1 s2, no murmurs. ABDOMEN: nontender, not distended, +BS EXTREMITIES: no edema or erythema. palpable distal pulses SKIN: no rash, no purpura NEUROLOGICAL: During sedation vacation he opens eyes and has purposeful movements in all extremities. Positive brainstem reflexes. PERTINENT LABS/IMAGING: Chest x-ray read by me from today shows bilateral opacities, ET tube and OG tube are okay. IMPRESSION: 1. Acute hypercapnic/hypoxic respiratory failure improved, secondary to drug overdose with evidence of amphetamines, cocaine, THC in urine 2. Sepsis present on admission secondary to community acquired pneumonia possible aspiration, status post bedside bronch with copious bilateral lower lobe purulent secretions 3. ISABELLA nonoliguric improved likely prerenal. Normal osmolar gap. 4. Rhabdomyolysis improved 5. Hypothermia resolved 6. Lactic acidosis improved 7. Transaminitis hepatocellular pattern improved 8. 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 Titrate down propofol drip to assess mental status. PULM: HOB 30 degrees. Maintain Sp02 94-98%. Titrate down oxygen as tolerated. ABG this morning pH 7.42 CO2 44 O2 69 on 60//24/560. Not ready for breathing trials yet CARDIO: Maintain MAPs 60-65. Not requiring pressors. Continue with IV fluids. Follow-up lactate. GI: GI ppx. OG feeds at goal RENAL: monitor lytes, Starr. Reduce LR to 50 cc an hour follow-up CK level ID: Blood culture negative, bronchial washing culture MSSA. DC Vanco DC cefepime and start Ancef. MRSA nare negative. Procalcitonin 31. ENDO: Monitor FS per routine. Goal range 140-180. HEME: DVT ppx LINES/CATHETERS: Femoral central line. CODE STATUS: Full code. DISPOSITION: ICU. A total of 50 minutes of critical care time was spent on patient care, not including procedures VS,Fishbone, I+O VS, Fishbone, I+O Laboratory Tests 08/19/21 16:36 08/19/21 21:03 08/20/21 04:00 Vital Signs Date Time Temp Pulse Resp B/P (MAP) Pulse Ox O2 Delivery O2 Flow Rate FiO2 08/20/21 06:00 99.3 101 24 124/64 (84) 97 Ventilator 60 08/18/21 12:27 5.0 I&O- Last 24 Hours up to 6 AM 08/20/21 06:00 Intake Total 3654 ml Output Total 2440 ml Balance 1214 ml LULA OLIVO MD Aug 20, 2021 10:09
[2021-08-20] MEDS ORDERED: ceFAZolin SOD 2 GM in IV 1 EA IV SCH (11:00)
[2021-08-20] MEDS: MIDAZOLAM INJ 2MG/2ML VIAL (J2250 PER 1MG) IV PRN (12:55)
[2021-08-20] MEDS ORDERED: LABETALOL 100MG/20ML VIAL IV PRN (13:45)
[2021-08-20] MEDS: ceFAZolin SOD 2 GM in IV 1 EA IV SCH ×2 (14:01→21:39)
[2021-08-20] MEDS: LR 1,000 ML IV SCH (17:49)
--- NOTE | 2021-08-20 21:57 | REPVR ---
PROCEDURE INFORMATION: Exam: XR Chest Exam date and time: 08/20/2021 9:19 PM Age: 41 years old Clinical indication: Device placement; Ng tube; Additional info: Og tube placement TECHNIQUE: Imaging protocol: XR of the chest. Views: 1 view. COMPARISON: CR PORTABLE CHEST X-RAY 08/20/2021 7:47 AM FINDINGS: Tubes, catheters and devices: Tip of NG tube located in the left upper quadrant consistent with intragastric location. Lungs: Possible atelectasis both lung bases. Lungs otherwise clear. Pleural spaces: Bilateral small pleural effusions. Heart/Mediastinum: Unremarkable. No cardiomegaly. Bones/joints: Unremarkable. IMPRESSION: 1. Bilateral small pleural effusions. 2. Possible atelectasis both lung bases. Lungs otherwise clear. Electronically signed by: Daniel Romero On 08/20/2021 21:57:15 PM
[2021-08-20] MEDS: MIDAZOLAM HCL 100 MG in D5W 80 ML IV SCH (23:07)
[2021-08-21] VITALS (37 sets, daily range): BP systolic 113–176; BP diastolic 58–102
[2021-08-21] MEDS: fentaNYL CITRATE 1,000 MCG in NS 80 ML IV SCH (02:45)
[2021-08-21] MEDS: propofoL 1,000 MG in IV 1 EA IV SCH ×5 (03:20→21:51)
[2021-08-21] MEDS: MIDAZOLAM INJ 2MG/2ML VIAL (J2250 PER 1MG) IV PRN ×5 (03:31→23:01)
[2021-08-21] MEDS: HEPARIN SOD (PORCINE) 5000UNITS/ML 1ML VIAL/SYRINGE SC SCH ×3 (05:40→21:58)
[2021-08-21] MEDS: ceFAZolin SOD 2 GM in IV 1 EA IV SCH ×3 (05:40→21:58)
[2021-08-21 05:46] LABS: HEMATOCRIT 37.8 % (42.0-52.0); HEMOGLOBIN 12.2 g/dl (13.5-17.5); MEAN CORPUSCULAR HEMOGLOBIN 29.8 pg (27.0-33.0); MEAN CORPUSCULAR HGB CONC 32.3 g/dl (32.0-36.5); MEAN CORPUSCULAR VOLUME 92.2 fl (80.0-96.0); PLATELET COUNT, AUTOMATED 199 10^3/uL (150-450); WHITE BLOOD COUNT 11.7 10^3/uL (4.0-10.0)
[2021-08-21 06:07] LABS: ABG BASE EXCESS 3.8 (-2.0-2.0); ABG HCO3 27.9 MEQ/L (22.0-26.0); ABG PARTIAL PRESSURE CO2 40.4 mmHg (35.0-45.0); ABG PARTIAL PRESSURE O2 106.9 mmHg (75.0-100.0); ABG STANDARD HCO3 27.8 MEQ/L (22.0-26.0); ABG TOTAL CO2 29.1 MEQ/L (22.0-29.0); ABG pH (ARTERIAL) 7.457 UNITS (7.350-7.450)
[2021-08-21 06:15] LABS: ALT/SGPT 37 U/L (12-78); BILIRUBIN,TOTAL 0.4 MG/DL (0.2-1.0); BLOOD UREA NITROGEN 28 MG/DL (7-18); CALCIUM LEVEL 7.5 MG/DL (8.5-10.1); CARBON DIOXIDE LEVEL 34 MEQ/L (21-32); CHLORIDE LEVEL 105 MEQ/L (98-107); CREATININE FOR GFR 1.33 MG/DL (0.70-1.30); GLOMERULAR FILTRATION RATE > 60.0 (>60); GLUCOSE, FASTING 148 MG/DL (70-100); MAGNESIUM LEVEL 2.5 MG/DL (1.8-2.4); PHOSPHORUS LEVEL 1.8 MG/DL (2.5-4.9); POTASSIUM SERUM 3.4 MEQ/L (3.5-5.1); SODIUM LEVEL 144 MEQ/L (136-145); TOTAL PROTEIN 5.5 GM/DL (6.4-8.2)
[2021-08-21 06:25] LABS: EOSINOPHILS 5 % (0-3); LYMPHOCYTES 2 % (16-44); MONOCYTES 6 % (0-5); NEUTROPHILS 73 % (28-66); PLATELET ESTIMATE NORMAL (NORMAL)
--- NOTE | 2021-08-21 08:00 | REP ---
INDICATION: INTUBATED COMPARISON: None. TECHNIQUE: Portable AP view of the chest FINDINGS: Endotracheal tube 3 cm above the moe. Nasogastric tube extends below the left hemidiaphragm. Mediastinum and cardiac silhouette are stable. Left perihilar and left lower lobe/retrocardiac opacities are again noted. Subtle basilar opacities on prior examination appears slightly improved. No pneumothorax. IMPRESSION: Left perihilar and retrocardiac consolidation unchanged. Subtle bibasilar opacities mildly improved. <Electronically signed by Livan Harding > 08/21/21 1422
[2021-08-21] MEDS: ACETAMINOPHEN 325 MG/10.15 ML UDC GT PRN ×2 (08:37→17:43)
[2021-08-21] MEDS: LR 1,000 ML IV SCH ×2 (08:37→21:58)
[2021-08-21] MEDS: CHLORHEXIDINE GLUCONATE 0.12 % 15ML UDC (PERIDEX ORAL RINSE) MT SCH ×2 (08:38→20:10)
[2021-08-21] MEDS: PANTOPRAZOLE 40MG VIAL (C9113 PER 1) IV SCH (08:38)
[2021-08-21] MEDS ORDERED: POTASSIUM PHOSPHATE INJ 18 MMOL in D5W 250 ML IV ONE (11:00)
--- NOTE | 2021-08-21 11:22 | IPNPDOC ---
Text Note Date of Service The patient was seen on 08/21/21. NOTE CRITICAL CARE PROGRESS NOTE: SUBJECTIVE: Patient seen and examined at bedside. Patient remains on mechanical ventilation. Yesterday there was incident where the OG tube was misplaced and there were tube feed looking material subsequently being suctioned from the endotracheal tube. He is currently on Versed at 2, fentanyl 25 and propofol 20. He is on LR 50 cc an hour. He is otherwise tolerating his OG feeds. His T-max 101.1. He is positive fluid balance 880 with good urine output. He is having bowel movements All other ROS are negative except as mentioned above PHYSICAL EXAMINATION: VITAL SIGNS: Please see below. GENERAL APPEARANCE: On mechanical ventilation HEENT: ET tube in place. No thyromegaly, trachea midline, PERRLA. normal mucous membranes RESPIRATORY: CTA B/L, good air entry. CARDIOVASCULAR: +s1 s2, no murmurs. ABDOMEN: nontender, not distended, +BS EXTREMITIES: no edema or erythema. palpable distal pulses SKIN: no rash, no purpura NEUROLOGICAL: Moves all extremities, sedated, does not follow commands. PERTINENT LABS/IMAGING: Chest x-ray today read by me shows improving infiltrates, endotracheal tube and OG tube are in satisfactory position. IMPRESSION: 1. Acute hypercapnic/hypoxic respiratory failure improved, secondary to drug overdose with evidence of amphetamines, cocaine, THC in urine 2. Sepsis present on admission secondary to community acquired pneumonia possible aspiration, status post bedside bronch with copious bilateral lower lobe purulent secretions 3. ISABELLA nonoliguric likely prerenal improving with volume resuscitation 4. Rhabdomyolysis improved 5. Hypothermia resolved 6. Lactic acidosis resolved 7. Transaminitis hepatocellular pattern improved 8. History of polysubstance abuse PLAN: USER EXPERIENCE ARCHITECT: Spontaneous awakening trial to assess mental status and then continue light sedation with fentanyl and propofol. Titrate down Versed to off and can use Versed 2 mg pushes as needed. PULM: HOB 30 degrees. Maintain Sp02 94-98%. Titrate down oxygen as tolerated. ABG this morning pH 7.45 CO2 40 O2 106 on 60/10/24/560. Patient is not ready for spontaneous breathing trials at this time. CARDIO: Maintain MAPs 60-65. Not requiring pressors. Continue with gentle IV hydration, follow-up CK rhabdo is improving. Check echo GI: GI ppx. OG feeds at goal RENAL: monitor Ro sevilla. Replete potassium and phosphorus ID: Blood culture negative, bronchial washing culture MSSA. Continue with Ancef. MRSA nare negative. Procalcitonin 31. patient having new fevers and diarrhea, check c diff ENDO: Monitor FS per routine. Goal range 140-180. HEME: DVT ppx LINES/CATHETERS: Femoral central line. CODE STATUS: Full code. DISPOSITION: ICU. A total of 55 minutes of critical care time was spent on patient care, not including procedures VS,Fishbone, I+O VS, Fishbone, I+O Laboratory Tests 08/21/21 05:26 Vital Signs Date Time Temp Pulse Resp B/P (MAP) Pulse Ox O2 Delivery O2 Flow Rate FiO2 08/21/21 11:00 100.2 95 26 150/85 (106) 95 Ventilator 50 08/18/21 12:27 5.0 I&O- Last 24 Hours up to 6 AM 08/21/21 06:00 Intake Total 3142.5 ml Output Total 2105 ml Balance 1037.5 ml LULA OLIVO MD Aug 21, 2021 11:22
[2021-08-21 15:15] LABS: CLOSTRIDIUM DIFFICILE PCR POSITIVE (NEGATIVE)
[2021-08-21 16:09] LABS: BODY FLUID CULTURE Not indicated. (.); LEGIONELLA ANTIGEN URINE Negative (Negative); ORGANISM ID Not indicated. (.); SPECIMEN SOURCE Urine (.); URINE STREP PNEUMONIAE ANTIGEN Negative (Negative)
[2021-08-21] MEDS: fentaNYL 100 MCG/2 ML INJECTION (J3010) IV PRN (16:24)
[2021-08-21] MEDS ORDERED: REFRIGERATOR IV KEYS XX PRN (16:45)
[2021-08-21] MEDS: VANCOMYCIN ORAL SOL 250MG/5ML ORAL SYRINGE PO SCH (17:44)
[2021-08-21] MEDS: MIDAZOLAM HCL 100 MG in D5W 80 ML IV SCH (18:17)
[2021-08-22] VITALS (47 sets, daily range): BP systolic 115–180; BP diastolic 59–99
[2021-08-22] MEDS: VANCOMYCIN ORAL SOL 250MG/5ML ORAL SYRINGE PO SCH ×4 (00:11→18:07)
[2021-08-22] MEDS: propofoL 1,000 MG in IV 1 EA IV SCH ×8 (01:34→22:22)
[2021-08-22] MEDS: fentaNYL CITRATE 1,000 MCG in NS 80 ML IV SCH (02:39)
[2021-08-22] MEDS: ceFAZolin SOD 2 GM in IV 1 EA IV SCH ×3 (05:29→22:08)
[2021-08-22] MEDS: HEPARIN SOD (PORCINE) 5000UNITS/ML 1ML VIAL/SYRINGE SC SCH ×3 (05:30→22:07)
[2021-08-22] MEDS: MIDAZOLAM INJ 2MG/2ML VIAL (J2250 PER 1MG) IV PRN ×2 (05:30→11:59)
[2021-08-22 06:01] LABS: BASO # 0.1 10^3/uL (0.0-0.2); BASO % 0.4 % (0.0-1.0); EOS # 0.5 10^3/uL (0.0-0.5); EOS % 3.5 % (0.0-3.0); HEMATOCRIT 39.3 % (42.0-52.0); HEMOGLOBIN 12.4 g/dl (13.5-17.5); LYMPH # 1.2 10^3/uL (1.5-5.0); LYMPH % 8.8 % (24.0-44.0); MEAN CORPUSCULAR HEMOGLOBIN 29.7 pg (27.0-33.0); MEAN CORPUSCULAR HGB CONC 31.6 g/dl (32.0-36.5); MEAN CORPUSCULAR VOLUME 94.2 fl (80.0-96.0); MONO # 1.6 10^3/uL (0.0-0.8); MONO % 11.9 % (2.0-8.0); NEUTROPHILS # 9.6 10^3/uL (1.5-8.5); NEUTROPHILS % 71.1 % (36.0-66.0); PLATELET COUNT, AUTOMATED 215 10^3/uL (150-450); RED BLOOD COUNT 4.17 10^6/uL (4.30-6.10); WHITE BLOOD COUNT 13.5 10^3/uL (4.0-10.0)
[2021-08-22 06:07] LABS: ABG BASE EXCESS 9.2 (-2.0-2.0); ABG HCO3 34.6 MEQ/L (22.0-26.0); ABG PARTIAL PRESSURE CO2 50.4 mmHg (35.0-45.0); ABG PARTIAL PRESSURE O2 74.5 mmHg (75.0-100.0); ABG STANDARD HCO3 32.9 MEQ/L (22.0-26.0); ABG TOTAL CO2 36.2 MEQ/L (22.0-29.0); ABG pH (ARTERIAL) 7.455 UNITS (7.350-7.450)
[2021-08-22 06:27] LABS: ALBUMIN 2.1 GM/DL (3.2-5.2); ALT/SGPT 28 U/L (12-78); BILIRUBIN,TOTAL 0.3 MG/DL (0.2-1.0); BLOOD UREA NITROGEN 21 MG/DL (7-18); CALCIUM LEVEL 7.8 MG/DL (8.5-10.1); CARBON DIOXIDE LEVEL 36 MEQ/L (21-32); CHLORIDE LEVEL 105 MEQ/L (98-107); GLOMERULAR FILTRATION RATE > 60.0 (>60); GLUCOSE, FASTING 142 MG/DL (70-100); MAGNESIUM LEVEL 2.2 MG/DL (1.8-2.4); PHOSPHORUS LEVEL 2.2 MG/DL (2.5-4.9); POTASSIUM SERUM 3.8 MEQ/L (3.5-5.1); SODIUM LEVEL 145 MEQ/L (136-145); TOTAL PROTEIN 5.8 GM/DL (6.4-8.2)
--- NOTE | 2021-08-22 08:19 | REP ---
INDICATION: INTUBATED COMPARISON: 08/21/2021 TECHNIQUE: Portable AP view of the chest FINDINGS: Endotracheal tube and nasogastric tube are in stable position. Perihilar/left lower lobe opacity again identified and right lower lobe opacity suggesting elements of airspace disease and pleural effusion appears slightly increased. Musculoskeletal structures are intact. IMPRESSION: Left-sided opacities remains stable while right basilar opacity suggesting layering effusion and atelectasis slightly increased. <Electronically signed by Livan Harding > 08/22/21 0893
--- NOTE | 2021-08-22 08:36 | IPNPDOC ---
Text Note Date of Service The patient was seen on 08/22/21. NOTE CRITICAL CARE PROGRESS NOTE: SUBJECTIVE: Patient seen and examined. He remains on mechanical ventilation. Overnight he had episode of agitation and desaturation with ventilator dyssynchrony and sedation had to be increased. He is on the following drips Versed, fentanyl, p ropofol. He is on LR at 50 cc an hour. He is tolerating his OG feeds and they are at goal. He is positive fluid balance of 1316 cc and he has good urine output. Patient was febrile overnight with a T-max 101.1. He was having diarrhea yesterday and C. difficile returned positive. His diarrhea is improved today. All other ROS are negative except as mentioned above PHYSICAL EXAMINATION: VITAL SIGNS: Please see below. GENERAL APPEARANCE: On mechanical ventilation. Looks comfortable HEENT: ET tube in place no thyromegaly, trachea midline, PERRLA. normal mucous membranes RESPIRATORY: CTA B/L, good air entry. CARDIOVASCULAR: +s1 s2, no murmurs. ABDOMEN: nontender, not distended, +BS EXTREMITIES: no edema or erythema. palpable distal pulses. Right femoral triple-lumen catheter in place SKIN: no rash, no purpura NEUROLOGICAL: Currently sedated and not following commands. He does move his head and moves all extremities when sedation is reduced PERTINENT LABS/IMAGING: Chest x-ray today read by me shows bibasilar opacities not significantly changed. OG tube and ET tube are in satisfactory position IMPRESSION: 1. Acute hypercapnic/hypoxic respiratory failure improved, secondary to drug overdose with evidence of amphetamines, cocaine, THC in urine 2. Sepsis present on admission secondary to community acquired pneumonia possible aspiration, MSSA in bronchial washing 3. ISABELLA nonoliguric improving with volume resuscitation 4. Rhabdomyolysis improved 5. Hypothermia resolved 6. Lactic acidosis resolved 7. Transaminitis hepatocellular pattern improved 8. History of polysubstance abuse 9. C. 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 Patient is currently on propofol, Versed, fentanyl drips. It is difficult to achieve adequate level of sedation and I suspect this may be related to his polysubstance abuse. PULM: HOB 30 degrees. Maintain Sp02 94-98%. Titrate down oxygen as tolerated. ABG this morning was done while the patient was having an episode of ventilator dyssynchrony. We will repeat ABG now that the patient is synchronous with the vent. Patient is currently on volume control 24/560/70%/10 CARDIO: Maintain MAPs 60-65. Not requiring pressors. Continue with gentle IV hydration, follow-up CK rhabdo is improving. Follow-up echo GI: GI ppx. OG feeds at goal RENAL: monitor Ro sevilla. ID: Blood culture negative, bronchial washing culture MSSA. Continue with Ancef. Procalcitonin 31. Continue with p.o. Vanco for C. difficile. ENDO: Monitor FS per routine. Goal range 140-180. HEME: DVT ppx LINES/CATHETERS: Right femoral central line which looks clean and without evidence of infection. CODE STATUS: Full code. DISPOSITION: ICU. A total of 50 minutes of critical care time was spent on patient care, not including procedures VS,Fishbone, I+O VS, Fishbone, I+O Laboratory Tests 08/22/21 05:42 Vital Signs Date Time Temp Pulse Resp B/P (MAP) Pulse Ox O2 Delivery O2 Flow Rate FiO2 08/22/21 08:16 89 24 96 55 08/22/21 06:42 Ventilator 08/22/21 06:30 159/71 (100) 08/22/21 06:00 101.1 08/18/21 12:27 5.0 I&O- Last 24 Hours up to 6 AM 08/22/21 06:00 Intake Total 3212.782 ml Output Total 1895 ml Balance 1317.782 ml LULA OLIVO MD Aug 22, 2021 08:36
[2021-08-22 08:53] LABS: ABG BASE EXCESS 9.1 (-2.0-2.0); ABG HCO3 33.3 MEQ/L (22.0-26.0); ABG O2 SATURATION 94.1 % (95.0-99.0); ABG PARTIAL PRESSURE CO2 43.7 mmHg (35.0-45.0); ABG PARTIAL PRESSURE O2 67.9 mmHg (75.0-100.0); ABG STANDARD HCO3 32.8 MEQ/L (22.0-26.0); ABG TOTAL CO2 34.7 MEQ/L (22.0-29.0)
[2021-08-22] MEDS: CHLORHEXIDINE GLUCONATE 0.12 % 15ML UDC (PERIDEX ORAL RINSE) MT SCH ×2 (09:50→22:08)
[2021-08-22] MEDS: PANTOPRAZOLE 40MG VIAL (C9113 PER 1) IV SCH (09:50)
--- NOTE | 2021-08-22 14:57 | ECHO ---
ECHOCARDIOGRAM DATE OF PROCEDURE: 08/21/2021 Age: Gender: Height: 185 cm Weight: 122 kg REFERRING PHYSICIAN: Dr. Khris Mathias INDICATION: Abnormal ECG. 2D MEASUREMENTS: Ventricular septum 1.4 cm Manager Operations wall 0.91 cm Left ventricle diastole 5.2 cm Aortic root 3.4 cm Left atrium 3.7 cm LVOT 2.1 cm Proximal ascending aorta 3.1 cm DOPPLER MEASUREMENTS: No aortic regurgitation or stenosis. Aortic valve velocity 141 cm/s LVOT velocity 127 cm/s No mitral regurgitation. Mitral E velocity 61.0 cm/s Mitral A velocity 51.0 cm/s Mitral deceleration time 268 msec No tricuspid regurgitation. No pulmonic regurgitation. MITRAL ANNULAR TISSUE DOPPLER: E prime septal 12.3 cm/s E prime lateral 16.0 cm/s DESCRIPTION: Rhythm was sinus. Frequent PVCs. This was a moderately technically difficult echocardiogram, which was performed with the patient on a ventilator. No pericardial effusion. This was 2D, M mode, color flow Doppler, and pulse wave Doppler examination and included mitral annular tissue doppler. CONCLUSIONS: 1. Normal left ventricle internal dimensions and wall thickness. Normal regional LV wall motion and wall thickness. Normal LV systolic function. LVEF 60% by visual assessment. Normal LV diastolic function. 2. Otherwise normal-appearing echocardiogram Doppler findings. 3. Moderately technical difficult echocardiogram. 4. No pericardial effusion.
[2021-08-22] MEDS: MIDAZOLAM HCL 100 MG in D5W 80 ML IV SCH (18:53)
[2021-08-22] MEDS: ACETAMINOPHEN 325 MG/10.15 ML UDC GT PRN (22:08)
[2021-08-23] VITALS (29 sets, daily range): BP systolic 112–189; BP diastolic 58–88
[2021-08-23] MEDS: propofoL 1,000 MG in IV 1 EA IV SCH ×12 (00:12→23:45)
[2021-08-23] MEDS: VANCOMYCIN ORAL SOL 250MG/5ML ORAL SYRINGE PO SCH ×5 (00:43→23:43)
[2021-08-23 04:53] LABS: HEMOGLOBIN 11.6 g/dl (13.5-17.5); MEAN CORPUSCULAR HEMOGLOBIN 29.3 pg (27.0-33.0); MEAN CORPUSCULAR HGB CONC 31.4 g/dl (32.0-36.5); MEAN CORPUSCULAR VOLUME 93.4 fl (80.0-96.0); PLATELET COUNT, AUTOMATED 221 10^3/uL (150-450); RED BLOOD COUNT 3.96 10^6/uL (4.30-6.10); WHITE BLOOD COUNT 12.6 10^3/uL (4.0-10.0)
[2021-08-23] MEDS: ceFAZolin SOD 2 GM in IV 1 EA IV SCH ×3 (05:07→22:15)
[2021-08-23] MEDS: HEPARIN SOD (PORCINE) 5000UNITS/ML 1ML VIAL/SYRINGE SC SCH (05:08)
[2021-08-23 05:23] LABS: EOSINOPHILS 4 % (0-3); LYMPHOCYTES 13 % (16-44); METAMYELOCYTES 7 % (0-0); MONOCYTES 9 % (0-5); MYELOCYTES 2 % (0-0); NEUTROPHILS 62 % (28-66)
[2021-08-23 05:24] LABS: PLATELET ESTIMATE NORMAL (NORMAL)
[2021-08-23 05:26] LABS: ALBUMIN 1.9 GM/DL (3.2-5.2); ALT/SGPT 21 U/L (12-78); BILIRUBIN,TOTAL 0.3 MG/DL (0.2-1.0); BLOOD UREA NITROGEN 23 MG/DL (7-18); CALCIUM LEVEL 7.4 MG/DL (8.5-10.1); CARBON DIOXIDE LEVEL 36 MEQ/L (21-32); CHLORIDE LEVEL 104 MEQ/L (98-107); CREATININE FOR GFR 0.85 MG/DL (0.70-1.30); GLOMERULAR FILTRATION RATE > 60.0 (>60); GLUCOSE, FASTING 130 MG/DL (70-100); MAGNESIUM LEVEL 2.1 MG/DL (1.8-2.4); POTASSIUM SERUM 3.4 MEQ/L (3.5-5.1); SODIUM LEVEL 145 MEQ/L (136-145); TOTAL PROTEIN 5.4 GM/DL (6.4-8.2)
[2021-08-23 05:44] LABS: ABG BASE EXCESS 9.4 (-2.0-2.0); ABG HCO3 33.8 MEQ/L (22.0-26.0); ABG O2 SATURATION 96.3 % (95.0-99.0); ABG PARTIAL PRESSURE O2 83.5 mmHg (75.0-100.0); ABG STANDARD HCO3 33.1 MEQ/L (22.0-26.0); ABG TOTAL CO2 35.1 MEQ/L (22.0-29.0); ABG pH (ARTERIAL) 7.493 UNITS (7.350-7.450)
[2021-08-23] MEDS: LR 1,000 ML IV SCH (05:49)
[2021-08-23] MEDS: fentaNYL CITRATE 1,000 MCG in NS 80 ML IV SCH ×2 (07:02→07:03)
--- NOTE | 2021-08-23 07:54 | REP ---
INDICATION: INTUBATED COMPARISON: None. TECHNIQUE: Portable AP view of the chest FINDINGS: Endotracheal tube and nasogastric tube are in stable satisfactory position. The mediastinum and cardiac silhouette are stable and within normal limits for portable technique. The lung samaniego demonstrate no significant change from prior examination with suspected perihilar (left greater than right) and right lower lobe opacities. IMPRESSION: No significant change from prior examination. <Electronically signed by Livan Harding > 08/23/21 [id number]
[2021-08-23] MEDS: MIDAZOLAM INJ 2MG/2ML VIAL (J2250 PER 1MG) IV PRN ×2 (08:16→09:30)
[2021-08-23] MEDS: CHLORHEXIDINE GLUCONATE 0.12 % 15ML UDC (PERIDEX ORAL RINSE) MT SCH ×2 (08:16→22:16)
[2021-08-23] MEDS: PANTOPRAZOLE 40MG VIAL (C9113 PER 1) IV SCH (08:16)
[2021-08-23] MEDS: ACETAMINOPHEN 325 MG/10.15 ML UDC GT PRN ×2 (08:25→19:42)
--- NOTE | 2021-08-23 09:43 | CCN ---
CRITICAL CARE NOTE DATE: 08/23/2021 CRITICAL CARE TIME: 51 minutes. This includes all procedures. SUBJECTIVE: Patient is quite agitated at times. With removal of sedation, bites on tube, becomes hypoxic. He also becomes hypoxic with minimal movement. Therefore, a full sedation vacation was not performed this morning. This was in order to keep the patient safe. Patient's oxygen requirements have not improved. However, there appears to be some pulmonary edema on chest x-ray this morning. I will, therefore, discontinue IV fluids. At this point in time, will monitor for need for diuresis as the patient is having diarrhea from C. difficile and still having T-max up to 101.1 overnight. I switched his nutrition from Nepro to Jevity 1.5 kala in order to provide additional nutrition and caloric intake given the size and muscular status of the patient. He has evidence of hypoalbuminemia on labs this morning. Could potentially partially be from fluid. He remains on mechanical overnight with blood gas of 7.49, pCO2 of 45, and a PaO2 of 84. Upon arriving to the room, I decreased his FiO2 to 0.65, and he remained above 92%. During my exam, he was nonresponsive, but he was responsive to the nurse. He moved his arms and legs and has some purposeful movements without evidence of high level functioning at this point in time. OBJECTIVE: VITAL SIGNS: Temperature 100.6, T-max 101.1, pulse 97, blood pressure 133/65, respiratory rate 28, oxygen saturation 92% on 0.80 FiO2. GENERAL: Sedated on mechanical ventilation. HEENT: His pupils are equal and reactive to light. Mucous membranes are moist without lesions. Tongue is midline. NECK: Supple but large in circumference. PULMONARY: Decreased breath sounds at the bases. Otherwise clear to auscultation. No rales, rhonchi, or wheezes, and no accessory muscle use. ABDOMEN: Obese, soft, nontender, nondistended. No hepatosplenomegaly. No masses or hernias. EXTREMITIES: No cyanosis or clubbing. Compression stockings are in place. There is an excoriation over his right foot which does not appear to have any signs of infection. GI/: There is a Starr and dignitary stool collection. LABORATORY DATA: Laboratory evaluation shows a sodium of 145, potassium 3.5, chloride 104, bicarb 36, BUN 23, creatinine 0.85 with a glucose of 130. White blood cell count is 12.6, hemoglobin is 11.6, and platelet count is 221. Bandemia has significantly decreased. Chest x-ray shows that the endotracheal tube is in good position. Bibasilar effusions are present. There appears to be more vascular congestion than on yesterday's film. ASSESSMENT/PLAN: 1. Acute hypoxic respiratory failure, bilateral lower lobe infiltrate consistent with aspiration, although grew staph on sputum. Patient is on cefazolin for the staph pneumonia but remains quite hypoxic. Therefore, is not a candidate for spontaneous breathing trial this morning. Will reassess in the morning for earliest possible time of extubation. 2. C. difficile infection. Remains on p.o. vancomycin. T-max to 101.1. Blood pressure is more than adequate. No signs of sepsis or septic shock at this point in time, and there is evidence of pulmonary edema. IV fluid has been discontinued. Will monitor for need for diuresis. 3. Nutrition. Switched to Jevity 1.5 kala from Nepro. Patient's ISABELLA has resolved. 4. Polysubstance abuse. May have difficulty weaning from mechanical ventilation. 5. DVT prophylaxis. Switched to Lovenox once a day. 6. GI prophylaxis. On Protonix. 7. Fever: will d/c femoral line and place IJ venous access MTDD
--- NOTE | 2021-08-23 10:32 | REP ---
INDICATION: post RIJ TLC insertion. COMPARISON: 08/23/2021, 7:33 a.m. TECHNIQUE: Single portable AP view of the chest was performed. FINDINGS: Bibasilar parenchymal opacities are unchanged. The cardiomediastinal silhouette is unchanged. Endotracheal tube tip is approximately 2.1 cm above the moe. Right central venous catheter is seen with tip in the superior vena cava. There is no pneumothorax. IMPRESSION: Placement of right central venous catheter with the tip in the superior vena cava. No pneumothorax. <Electronically signed by Jack Tyler > 08/23/21 1021
--- NOTE | 2021-08-23 10:34 | RO ---
OPERATIVE NOTE DATE OF OPERATION: 08/18/2021 PREOPERATIVE DIAGNOSIS: Persistent fever. POSTOPERATIVE DIAGNOSIS: Persistent Fever. PROCEDURE: Right internal jugular triple lumen venous catheter placement. Procedure was determined to be part of his ICU care. There is no one in attendance to provide consent. SURGEON: Wilfrido Cameron DO, [facility] CH[employer] WELFARE SOCIAL WORKER: None ANESTHESIA: 5ml of 1% Lidocaine DESCRIPTION OF PROCEDURE: The patient was placed in the supine position. Time-out was performed identifying two patient identifiers, correct site and correct procedure. The right IJ was then prepped with chlorhexidine and full barrier precautions. Ultrasound was used for directing the needle into the IJ with return of venous blood flow on the first pass. The wire was then fed through the needle and the needle was removed. The triple lumen catheter was then placed via modified Seldinger technique. All three ports returned venous blood flow and flushed easily. The central line was then sutured in at 15 cm. A sterile impregnated dressing was placed over the site. Post-procedure chest x-ray is pending. There were no observed complications. REINA
[2021-08-23] MEDS ORDERED: ENOXAPARIN 40MG/0.4ML SYRINGE (J1650 PER 10MG) SC ONE (12:00)
[2021-08-23] MEDS: MIDAZOLAM HCL 100 MG in D5W 80 ML IV SCH (19:39)
[2021-08-24] VITALS (24 sets, daily range): BP systolic 101–170; BP diastolic 53–93
[2021-08-24] MEDS: propofoL 1,000 MG in IV 1 EA IV SCH ×12 (02:18→22:31)
[2021-08-24] MEDS: fentaNYL CITRATE 1,000 MCG in NS 80 ML IV SCH ×2 (02:59→22:55)
[2021-08-24] MEDS: ceFAZolin SOD 2 GM in IV 1 EA IV SCH ×3 (05:30→20:51)
[2021-08-24] MEDS: VANCOMYCIN ORAL SOL 250MG/5ML ORAL SYRINGE PO SCH ×4 (05:30→22:50)
[2021-08-24 05:49] LABS: HEMATOCRIT 35.7 % (42.0-52.0); HEMOGLOBIN 11.3 g/dl (13.5-17.5); MEAN CORPUSCULAR HEMOGLOBIN 29.7 pg (27.0-33.0); MEAN CORPUSCULAR HGB CONC 31.7 g/dl (32.0-36.5); MEAN CORPUSCULAR VOLUME 93.9 fl (80.0-96.0); PLATELET COUNT, AUTOMATED 247 10^3/uL (150-450); WHITE BLOOD COUNT 13.6 10^3/uL (4.0-10.0)
[2021-08-24 05:57] LABS: ABG BASE EXCESS 5.4 (-2.0-2.0); ABG HCO3 28.9 MEQ/L (22.0-26.0); ABG O2 SATURATION 97.7 % (95.0-99.0); ABG PARTIAL PRESSURE CO2 38.2 mmHg (35.0-45.0); ABG PARTIAL PRESSURE O2 106.2 mmHg (75.0-100.0); ABG STANDARD HCO3 29.3 MEQ/L (22.0-26.0); ABG pH (ARTERIAL) 7.496 UNITS (7.350-7.450)
[2021-08-24 06:23] LABS: ALBUMIN 1.9 GM/DL (3.2-5.2); ALT/SGPT 29 U/L (12-78); BILIRUBIN,TOTAL 0.3 MG/DL (0.2-1.0); BLOOD UREA NITROGEN 21 MG/DL (7-18); CALCIUM LEVEL 7.8 MG/DL (8.5-10.1); CARBON DIOXIDE LEVEL 36 MEQ/L (21-32); CHLORIDE LEVEL 103 MEQ/L (98-107); CREATININE FOR GFR 0.74 MG/DL (0.70-1.30); GLOMERULAR FILTRATION RATE > 60.0 (>60); GLUCOSE, FASTING 138 MG/DL (70-100); MAGNESIUM LEVEL 1.9 MG/DL (1.8-2.4); PHOSPHORUS LEVEL 3.9 MG/DL (2.5-4.9); POTASSIUM SERUM 3.2 MEQ/L (3.5-5.1); SODIUM LEVEL 144 MEQ/L (136-145); TOTAL PROTEIN 5.6 GM/DL (6.4-8.2)
[2021-08-24 06:24] LABS: ATYPICAL LYMPH 2 % (0-5); EOSINOPHILS 3 % (0-3); LYMPHOCYTES 14 % (16-44); METAMYELOCYTES 2 % (0-0); MONOCYTES 5 % (0-5); MYELOCYTES 3 % (0-0); NEUTROPHILS 67 % (28-66); PLATELET ESTIMATE NORMAL (NORMAL)
[2021-08-24 06:25] LABS: ANISOCYTOSIS 1+
--- NOTE | 2021-08-24 08:16 | REP ---
INDICATION: INTUBATED. COMPARISON: Portable chest, 08/23/2021. TECHNIQUE: AP portable chest image was obtained. FINDINGS: The endotracheal tube tip is at the T3-4 level. There is a right IJ deep line with the tip in the area of the superior vena cava. There is a nasogastric tube with the side port in the area of the stomach. There are bilateral pleural effusions and bibasilar airspace disease consistent with atelectasis or pneumonia. The heart size is unchanged. IMPRESSION: Endotracheal tube, nasogastric tube and right IJ deep line unchanged. Bilateral pleural effusions and bibasilar airspace disease. No significant change. <Electronically signed by Иван Lopez > 08/24/21 0820
[2021-08-24] MEDS: PANTOPRAZOLE 40MG VIAL (C9113 PER 1) IV SCH (08:41)
[2021-08-24] MEDS: CHLORHEXIDINE GLUCONATE 0.12 % 15ML UDC (PERIDEX ORAL RINSE) MT SCH ×2 (08:42→20:53)
[2021-08-24] MEDS: ENOXAPARIN 40MG/0.4ML SYRINGE (J1650 PER 10MG) SC SCH (08:42)
--- NOTE | 2021-08-24 09:46 | CCN ---
CRITICAL CARE NOTE DATE: 08/24/2021 Critical care time was 49 minutes. This excludes all procedures on August 24, 2021. SUBJECTIVE: On my arrival to the bedside, sedation had been removed. The patient is moving his eyes but not responding to command. I did place the patient on pressure support ventilation on 06/18. He was able to pull tidal volumes ranging 400-500 but did de-sat into the high 80's. After spending some time with him manipulating on the mechanical ventilator and testing his ability to perform spontaneous ventilation, it was determined at this point in time he still has a significant component of hypoxia keeping him on the ventilator. His IV fluids were discontinued yesterday. His chest x-ray shows less vascular congestion, less blunting of the costophrenic angle. I returned him to ventilator settings of a tidal volume of 500 which was less than what he was on; increased the respiratory rate to 20 at continued PEEP of 10. FiO2 is at 0.6. Although it is documented at 0.6 overnight, it was 0.8 throughout the evening, just mis-documented. We will continue to make efforts towards liberation from mechanical ventilation. Arterial blood gas on 0.8 FiO2 this morning shows a pH of 7.49, pco2 of 38, pa02 of 106. OBJECTIVE: PHYSICAL EXAMINATION: VITAL SIGNS: Temperature is 100.2 via urinary catheter probe, pulse is 79, respiratory rate is up to 26 at times, blood pressure is 106/58 when more awake. Systolic blood pressure was 158. Pulse oximetry is 96% on 0.60 FiO2. HEENT: Sclerae clear, anicteric. Pupils are equal and reactive to light. Mucous membranes are moist. Tongue is midline. NECK: Supple, no tracheal deviation or mass. Right IJ is without surrounding erythema or exudate. LYMPH: No cervical or supraclavicular axillary adenopathy. CARDIAC: Regular, S1, S2 without audible murmurs, rubs or gallops. No elevated JVP. No lower extremity edema. There is some hand edema. PULMONARY: Decreased breath sounds at the bases, otherwise clear to auscultation anteriorly. No rhonchi or wheeze. There is a slight forced exhalation when the patient is more awake. ABDOMEN: Soft, nontender, nondistended. No hepatosplenomegaly, no masses or hernia. The patient is continuing to have diarrhea. GENITOURINARY: Starr in place with jose luis urine. No evidence of hematuria. EXTREMITIES: No cyanosis or clubbing. Hand edema as mentioned above. LABORATORY EVALUATION: Sodium of 144, potassium 3.2, chloride 103, bicarbonate of 36, BUN of 21, creatinine of 0.74, calcium 7.8, albumin of 1.9. White count is at 13.6, hemoglobin 11.3, platelet count of 247. IMPRESSION: 1. Acute hypoxic respiratory failure, bilateral lobe infiltrate on Cefazolin with staph pneumonia, remains quite hypoxic. Attempted spontaneous breathing trial this morning. The patient is close but not yet ready for extubation due to hypoxia. We will continue to monitor for earliest time for extubation. 2. C-diff infection, currently on p.o. Vancomycin, trending towards improvement. 3. Hypokalemia, replaced IV through central line today. 4. Nutrition, on Jevity 1.5 kala. 5. Polysubstance abuse, awaiting for neurologic recovery along with improvement in hypoxia for timing of extubation. 6. DVT prophylaxis, on Lovenox. 7. GI prophylaxis, on Protonix. PLAN: We will continue to monitor for other signs/symptoms of infection. The patient continues to have some fevers. We will continue to monitor over time for development of new infection or resistance.
[2021-08-24] MEDS: KCL 20MEQ IN 100ML SWI (KRUN) 20 MEQ in IV 1 EA IV SCH ×4 (10:50→12:42)
[2021-08-24] MEDS: ACETAMINOPHEN 325 MG/10.15 ML UDC GT PRN ×2 (16:48→22:51)
[2021-08-24] MEDS: MIDAZOLAM HCL 100 MG in D5W 80 ML IV SCH (19:28)
[2021-08-24] MEDS: MIDAZOLAM INJ 2MG/2ML VIAL (J2250 PER 1MG) IV PRN (22:20)
[2021-08-25] VITALS (69 sets, daily range): BP systolic 102–156; BP diastolic 55–89
[2021-08-25] MEDS: propofoL 1,000 MG in IV 1 EA IV SCH ×12 (00:09→22:28)
[2021-08-25] MEDS: ceFAZolin SOD 2 GM in IV 1 EA IV SCH ×3 (05:00→21:01)
[2021-08-25] MEDS: VANCOMYCIN ORAL SOL 250MG/5ML ORAL SYRINGE PO SCH ×4 (05:00→23:25)
[2021-08-25] MEDS: MIDAZOLAM INJ 2MG/2ML VIAL (J2250 PER 1MG) IV PRN ×3 (05:19→10:53)
[2021-08-25 05:31] LABS: HEMATOCRIT 38.4 % (42.0-52.0); HEMOGLOBIN 11.9 g/dl (13.5-17.5); MEAN CORPUSCULAR HEMOGLOBIN 29.5 pg (27.0-33.0); PLATELET COUNT, AUTOMATED 309 10^3/uL (150-450); RED BLOOD COUNT 4.04 10^6/uL (4.30-6.10); WHITE BLOOD COUNT 15.3 10^3/uL (4.0-10.0)
[2021-08-25 05:41] LABS: ABG BASE EXCESS 9.3 (-2.0-2.0); ABG HCO3 33.8 MEQ/L (22.0-26.0); ABG O2 SATURATION 92.3 % (95.0-99.0); ABG PARTIAL PRESSURE CO2 45.2 mmHg (35.0-45.0); ABG PARTIAL PRESSURE O2 63.6 mmHg (75.0-100.0); ABG STANDARD HCO3 32.9 MEQ/L (22.0-26.0); ABG TOTAL CO2 35.1 MEQ/L (22.0-29.0); ABG pH (ARTERIAL) 7.491 UNITS (7.350-7.450)
[2021-08-25 05:46] LABS: ALT/SGPT 27 U/L (12-78); BILIRUBIN,TOTAL 0.3 MG/DL (0.2-1.0); BLOOD UREA NITROGEN 22 MG/DL (7-18); CALCIUM LEVEL 7.9 MG/DL (8.5-10.1); CARBON DIOXIDE LEVEL 35 MEQ/L (21-32); CHLORIDE LEVEL 103 MEQ/L (98-107); GLOMERULAR FILTRATION RATE > 60.0 (>60); GLUCOSE, FASTING 148 MG/DL (70-100); MAGNESIUM LEVEL 2.2 MG/DL (1.8-2.4); PHOSPHORUS LEVEL 3.7 MG/DL (2.5-4.9); POTASSIUM SERUM 3.7 MEQ/L (3.5-5.1); SODIUM LEVEL 144 MEQ/L (136-145); TOTAL PROTEIN 5.9 GM/DL (6.4-8.2)
[2021-08-25 05:53] LABS: BASOPHILS 1 % (0-1); EOSINOPHILS 7 % (0-3); LYMPHOCYTES 10 % (16-44); METAMYELOCYTES 5 % (0-0); MONOCYTES 2 % (0-5); MYELOCYTES 1 % (0-0); NEUTROPHILS 72 % (28-66); PLATELET ESTIMATE NORMAL (NORMAL)
[2021-08-25] MEDS: CHLORHEXIDINE GLUCONATE 0.12 % 15ML UDC (PERIDEX ORAL RINSE) MT SCH ×2 (08:05→20:42)
[2021-08-25] MEDS: PANTOPRAZOLE 40MG VIAL (C9113 PER 1) IV SCH (08:05)
[2021-08-25] MEDS: ENOXAPARIN 40MG/0.4ML SYRINGE (J1650 PER 10MG) SC SCH (08:05)
--- NOTE | 2021-08-25 08:07 | REP ---
INDICATION: INTUBATED. COMPARISON: Comparison chest x-ray August 24, 2021. TECHNIQUE: Portable upright AP chest radiograph. FINDINGS: Endotracheal tube remains in place at the level of the transverse aorta. NG tube is seen in the left upper quadrant. A right IJ central venous line terminates in the expected location of the superior vena cava. Monitoring electrodes are visible. There is extensive parenchymal opacity in the left lower lobe behind the heart and to a lesser extent on the right. Pleural angles are not blunted. Pulmonary vasculature is not increased. IMPRESSION: Bibasilar parenchymal opacities unchanged from August 24, 2021. <Electronically signed by Avelino Iniguez > 08/25/21 0856
[2021-08-25] MEDS ORDERED: FUROSEMIDE 40MG/4ML VIAL (J1940) IV ONE (08:15)
--- NOTE | 2021-08-25 08:49 | CCN ---
CRITICAL CARE NOTE DATE: 08/25/2021 Critical care time is 47 minutes. This excludes all procedures. SUBJECTIVE: The patient is a 41-year-old male who had sinus arrhythmias this morning, has desaturations with turning, had significant copious amounts of secretions. He continues to have oxygen requirements of FiO2 of 0.60 and on a PEEP of 10. I did decrease his PEEP to 8 at the bedside this morning. Therefore, because of his respiratory compromise, he is not a candidate for extubation this morning. We will still have sedation vacation to avoid oversedation. OBJECTIVE: Vital signs: Temperature is 99.5, pulse ranges 80 to 136 and is fairly regular. Respiratory rate of 27. Blood pressure is 130/72 with a MAP of 91. Oxygen saturation 94% on 0.60 FiO2. HEENT: Sclerae are clear, nonicteric. Pupils are equal and reactive to light. Mucous membranes are moist without lesions. Neck: Supple. No tracheal deviation or mass. Lymph nodes: No cervical, supraclavicular or axillary adenopathy. Cardiac: Tachycardic, S-1, S-2 without audible murmur, rub, or gallop. No elevated JVP. There is peripheral edema in the hands and feet. Abdomen: Soft, nontender, nondistended, no hepatosplenomegaly, no masses or hernia. Extremities: As mentioned above with edema but no cyanosis or clubbing. LABORATORY EVALUATION: Shows a sodium of 144, potassium 3.7, chloride 103, bicarb of 35, BUN of 22, creatinine of 0.7, white count of 15.3, hemoglobin of 11.9 with a platelet count of 309, 72% bandemia. One blood culture shows Staph epi that is resistant. Chest x-ray shows that the endotracheal tube is slightly deep. There is improved pulmonary infiltrates. No evidence of effusion. No pneumothorax. IMPRESSION: 1. Acute hypoxic respiratory failure secondary to pneumonia, remains on mechanical ventilation, still has high oxygen requirements. We will decrease PEEP to 8 today. Patient is still on cefazolin. Echocardiogram performed earlier in the week did not show any significant valvulopathies or cardiac abnormalities. Blood cultures, only one has shown Staph epidermidis. Because of hypoxia and edema, we will provide a trial of Lasix to hopefully facilitate weaning off of mechanical ventilation. 2. History of C. diff infection currently on p.o. vancomycin, will switch to dificid 3. Hyperchloremia, improved compared to yesterday. 4. Nutrition on Jevity 1.5 kala. 5. Polysubstance abuse. 6. GI prophylaxis on Protonix. 7. DVT prophylaxis on Lovenox. We will continue to monitor for arrhythmias. EKG will be performed this morning. We will continue efforts on a daily basis to assess for readiness for extubation. MTDD
[2021-08-25] MEDS ORDERED: METOPROLOL 5 MG/5 ML VIAL As Ordered ONE (10:52)
[2021-08-25] MEDS: fentaNYL 100 MCG/2 ML INJECTION (J3010) IV PRN (10:59)
[2021-08-25] MEDS ORDERED: diltiaZEM 125 MG in NS 100 ML IV SCH (11:00)
[2021-08-25] MEDS ORDERED: METOPROLOL 5 MG/5 ML VIAL IV STA (11:05)
[2021-08-25] MEDS: METOPROLOL TART 25 MG TABLET PO SCH ×2 (13:46→20:42)
[2021-08-25] MEDS: fentaNYL CITRATE 1,000 MCG in NS 80 ML IV SCH (14:23)
[2021-08-25] MEDS: MIDAZOLAM HCL 100 MG in D5W 80 ML IV SCH (15:30)
--- NOTE | 2021-08-25 20:39 | ECGEPIP ---
[facility] Test Date: 2021-08-25 Pat Name: CORNELIA KAPOOR Department: Room: [place] [address] Gender: Male Case Reviewer: sonya : 1980 Requested By: GIGI To Order Number: [id number] Reading MD: Azam Leon Measurements Intervals [place] Rate: 89 P: 61 ID: [id number] QRS: 24 QRSD: 90 T: 53 QT: 356 QTc: 433 Interpretive Statements Normal sinus rhythm Nonspecific T wave abnormality Compared to prior tracing of 08/18/2021, heart rate is faster and ectopy has resolved Electronically Signed on 08-25-2021 20:39:25 EST by Azam Leon
[2021-08-25] MEDS: FIDAXOMICIN 200 MG TAB (DIFICID) PO SCH (20:42)
[2021-08-25] MEDS: ACETAMINOPHEN 325 MG/10.15 ML UDC GT PRN (23:25)
[2021-08-26] VITALS (20 sets, daily range): BP systolic 104–154; BP diastolic 57–88
[2021-08-26] MEDS: propofoL 1,000 MG in IV 1 EA IV SCH ×13 (00:05→20:09)
[2021-08-26] MEDS: MIDAZOLAM INJ 2MG/2ML VIAL (J2250 PER 1MG) IV PRN ×4 (03:37→20:10)
[2021-08-26] MEDS: VANCOMYCIN ORAL SOL 250MG/5ML ORAL SYRINGE PO SCH (04:54)
[2021-08-26] MEDS: ceFAZolin SOD 2 GM in IV 1 EA IV SCH ×3 (04:54→21:08)
[2021-08-26] MEDS: ACETAMINOPHEN 325 MG/10.15 ML UDC GT PRN ×3 (05:04→20:10)
[2021-08-26 05:10] LABS: HEMATOCRIT 38.7 % (42.0-52.0); HEMOGLOBIN 12.1 g/dl (13.5-17.5); MEAN CORPUSCULAR HEMOGLOBIN 29.6 pg (27.0-33.0); MEAN CORPUSCULAR HGB CONC 31.3 g/dl (32.0-36.5); MEAN CORPUSCULAR VOLUME 94.6 fl (80.0-96.0); PLATELET COUNT, AUTOMATED 365 10^3/uL (150-450); RED BLOOD COUNT 4.09 10^6/uL (4.30-6.10); WHITE BLOOD COUNT 16.3 10^3/uL (4.0-10.0)
[2021-08-26 05:20] LABS: ALT/SGPT 22 U/L (12-78); BILIRUBIN,TOTAL 0.3 MG/DL (0.2-1.0); BLOOD UREA NITROGEN 25 MG/DL (7-18); CALCIUM LEVEL 7.9 MG/DL (8.5-10.1); CARBON DIOXIDE LEVEL 36 MEQ/L (21-32); CHLORIDE LEVEL 102 MEQ/L (98-107); CREATININE FOR GFR 0.69 MG/DL (0.70-1.30); GLOMERULAR FILTRATION RATE > 60.0 (>60); GLUCOSE, FASTING 152 MG/DL (70-100); PHOSPHORUS LEVEL 3.6 MG/DL (2.5-4.9); POTASSIUM SERUM 3.6 MEQ/L (3.5-5.1); SODIUM LEVEL 144 MEQ/L (136-145)
[2021-08-26 06:11] LABS: ATYPICAL LYMPH 1 % (0-5); EOSINOPHILS 3 % (0-3); LYMPHOCYTES 9 % (16-44); METAMYELOCYTES 2 % (0-0); MONOCYTES 1 % (0-5); NEUTROPHILS 81 % (28-66)
[2021-08-26 06:12] LABS: PLATELET ESTIMATE NORMAL (NORMAL)
[2021-08-26 06:18] LABS: ABG BASE EXCESS 5.7 (-2.0-2.0); ABG HCO3 30.2 MEQ/L (22.0-26.0); ABG O2 SATURATION 95.8 % (95.0-99.0); ABG PARTIAL PRESSURE CO2 43.4 mmHg (35.0-45.0); ABG PARTIAL PRESSURE O2 84.8 mmHg (75.0-100.0); ABG STANDARD HCO3 29.6 MEQ/L (22.0-26.0); ABG TOTAL CO2 31.5 MEQ/L (22.0-29.0)
[2021-08-26] MEDS: ENOXAPARIN 40MG/0.4ML SYRINGE (J1650 PER 10MG) SC SCH (08:17)
[2021-08-26] MEDS: PANTOPRAZOLE 40MG VIAL (C9113 PER 1) IV SCH (08:17)
[2021-08-26] MEDS: CHLORHEXIDINE GLUCONATE 0.12 % 15ML UDC (PERIDEX ORAL RINSE) MT SCH ×2 (08:17→20:09)
[2021-08-26] MEDS: METOPROLOL TART 25 MG TABLET PO SCH ×2 (08:18→20:10)
[2021-08-26] MEDS: FIDAXOMICIN 200 MG TAB (DIFICID) PO SCH ×2 (08:18→20:10)
--- NOTE | 2021-08-26 08:25 | REP ---
INDICATION: INTUBATED. COMPARISON: Portable chest, 08/25/2021. TECHNIQUE: AP portable chest image was obtained. FINDINGS: Apparent interval development of large bilateral pleural effusions and bibasilar atelectasis. There is cardiomegaly without pulmonary venous hypertension. The endotracheal tube tip is now at the T4 level. The nasogastric tube tip is seen in the area of the stomach. There is a right internal jugular deep line. IMPRESSION: Bilateral pleural effusions and bibasilar atelectasis not apparent previously. <Electronically signed by Иван Lopez > 08/26/21 [id number]
[2021-08-26] MEDS ORDERED: ROCURONIUM BROMIDE 50 MG/5 ML VIAL As Ordered ONE (08:55)
[2021-08-26] MEDS ORDERED: ROCURONIUM BROMIDE 50 MG/5 ML VIAL IV ONE (09:25)
[2021-08-26] MEDS ORDERED: KCL 10MEQ/100ML SWI (KRUN) 10 MEQ in IV 1 EA IV ONE (10:00)
--- NOTE | 2021-08-26 10:50 | IPNPDOC ---
Text Note Date of Service The patient was seen on 08/26/21. NOTE Critical care time excluding all procedures: 65 minutes ICU day 9. Central line day 3. Intubation day 9. Cefazolin day 6. PO vancomycin day 05/27. Fidaxomicin day 2. S: Patient seen and evaluated at bedside this AM. He is currently sedated and on mechanical ventilation. Per nurse, he required significant suctioning this a.m. with copious redbrown secretions via ET tube. Bronchoscopy performed at bedside, without significant product and BAL culture sent for further evaluation. Patient was found to have SPO2 98% on current ventilation settings. Bedside ultrasound was also performed to further evaluate etiology of blunted costophrenic angles noted on CXR. No pleural effusions were appreciated via ultrasound. Patient continues to have intermittent fevers with overnight temp 101.1F by urinary catheter temp probe. 4 incontinent bowel movements through 08/25 documented. No additional overnight events, per nurse. O: GEN: Sedated, NAD, laying in bed. overbreathing vent, coughing at times HEENT: NC/AT, PERRL, anicteric sclera, nares patent, moist mucous membranes, endotracheal tube in place Neck: IJ in place without surounding erythema. Trachea midline, Carotid upstroke is good. CARDIO: Sinus rhythm with HR 84, normal heart sounds, no murmurs. No rub or gallop. PMI is nondisplaced. Less edema than yesterday. PULM: Coarse breath sounds throughout, no wheezing, no accessory muscles used. Dull to percussion at bases bilaterally. Ultrasound of right loer lobe at bedside shows consolidation and no sig pleural effusion. ABD: soft, nondistended, No hepatospelnomegaly, No mass or hernia. EXTREMITIES: less edema/ no cyanosis, 2+ PT/DP pulses bilaterally SKIN: Warm. Extensive rash on perineum without bleeding/discharge/ulcers. No rash Neruo: No tremor or unilateral weakness, No asterixis, moves extremities spontaneously, Pupils were reactive. No myoclonus. MICRO: (08/19) Sputum culture + S. epidermidis (08/21) Blood culture + S. aureus (08/21) Stool culture C. difficile + Toxin A IMAGING: (08/26) CXR Blunting of costophrenic angles bilaterally with cephalization of pulmonary vessels. Endotracheal tube in place, 5cm above moe. IJ catheter at SVC. OG tube in stomach. A/P: Taco is a 41-year-old male with acute hypoxic respiratory failure 2/2 PNA on mechanical ventilation with sedation and cefazolin day 6, also found to have C. difficile on po vancomycin day 9 and Dificid day 2, with continued fevers, worsening leukocytosis, and copious secretions. #1Acute hypoxic respiratory failure 2/2 PNA Patient still with significant cxr infiltrate and possible pulmonary edema. Will try lasix. Given copious secretions and blunted costophrenic angles on CXR and hypoxia patient is not ready for extubation. Sedation vacation this AM to avoid oversedation. Continue propofol 100 mg twice daily, midazolam 100 mg, fentanyl 75 mcg every 2 hours. #2C. difficile 4 incontinent BM thru 08/25. Stop vanco Continue daptomycin 200 mg twice daily (start date 08/15) Monitor I's and O's #3 Fever/leukocytosis Will check fungal cultures although less likely fungal infection, Suspect persistent fever from C. diff. Changed to Dificid yesterday. BAL performed to look for alternative pneumonia pathogen #4Hypokalemia K+ 3.6 Order KCl 10 mg repletion Monitor electrolytes #5Afib - currently in sinus Continue metoprolol tartrate 25 mg twice daily On telemetry #6Nutrition Continue Jevity #7GI prophylaxis Start Pepcid 40mg Stop Protonix 40 mg #8DVT Prophylaxis Lovenox 40 CODE STATUS: Full code DIET: TPN ACTIVITY: Bedrest DISPO: ICU, pending clinical improvement IGigi, Agree with the above history and physical after completing an independent exam and assessment. I performed 65 minutes of direct critical care time at bedside and agree with what the resident has outlined above. VS,Fishbone, I+O VS, Fishbone, I+O Laboratory Tests 08/26/21 04:40 Vital Signs Date Time Temp Pulse Resp B/P (MAP) Pulse Ox O2 Delivery O2 Flow Rate FiO2 08/26/21 08:19 91 57 08/26/21 08:18 154/83 08/26/21 07:35 93 50 08/26/21 05:00 101.1 Ventilator 08/25/21 11:12 100.0 I&O- Last 24 Hours up to 6 AM 08/26/21 06:00 Intake Total 2762.4 ml Output Total 3430 ml Balance -667.6 ml Prema Metz DO Aug 26, 2021 10:50 GIGI JAEGER Aug 26, 2021 11:14
[2021-08-26] MEDS ORDERED: FAMOTIDINE 20 MG TAB PO ONE (11:00)
[2021-08-26] MEDS ORDERED: FUROSEMIDE 40MG/4ML VIAL (J1940) IV ONE (11:00)
--- NOTE | 2021-08-26 11:11 | RO ---
OPERATIVE NOTE DATE OF OPERATION: 08/26/2021 PREOPERATIVE DIAGNOSIS: Hypoxia, mucous plugging. POSTOPERATIVE DIAGNOSIS: Hypoxia, mucous plugging. PROCEDURE: Bronchoscopy with bronchoalveolar lavage. SURGEON: GIGI JAEGER DO [facility] SEDATION: Patient was already on sedation with Propofol, Midazolam and Fentanyl. Because of his hypoxia, he was paralyzed briefly in order to facilitate manipulation of the tube if needed and bronchoscopy. Therefore, Rocuronium 50 mg was given IV x1. DESCRIPTION OF PROCEDURE: After time-out was performed with two patient identifiers identified as correct site and correct procedure, the patient was placed in a supine position. Tube feeds were off to prevent aspiration. Paralytics were then administered after oxygen saturation remained above 95% in the supine position. Cetacaine spray was used to anesthetize the airway and provide lubrication. The direct vision bronchoscope was then inserted into the 8.0 endotracheal tube which was clear of mucous. There was no endotracheal tube obstruction. Right and left mainstem bronchi were normal except the left mainstem bronchus had clear secretions. This mucous was cleared via suctioning. All airways were then suctioned. There were no large central mucous plugs. I then performed a BAL of the left lower lobe. This was sent for sputum culture and gram stain. After all areas were suctioned, the endotracheal tube looked clear and in good position, therefore it was not replaced and the bronchoscope was removed. Patient was put back onto mechanical ventilation instead of bagging which was performed during the procedure. There were no observed complications. [facility]
[2021-08-26] MEDS: fentaNYL CITRATE 1,000 MCG in NS 80 ML IV SCH (12:32)
[2021-08-26] MEDS: MIDAZOLAM HCL 100 MG in D5W 80 ML IV SCH (15:46)
[2021-08-27] VITALS (37 sets, daily range): BP systolic 105–215; BP diastolic 59–124
[2021-08-27] MEDS: MIDAZOLAM INJ 2MG/2ML VIAL (J2250 PER 1MG) IV PRN (03:40)
[2021-08-27 04:25] LABS: HEMATOCRIT 39.1 % (42.0-52.0); HEMOGLOBIN 12.3 g/dl (13.5-17.5); MEAN CORPUSCULAR HEMOGLOBIN 29.6 pg (27.0-33.0); MEAN CORPUSCULAR HGB CONC 31.5 g/dl (32.0-36.5); PLATELET COUNT, AUTOMATED 413 10^3/uL (150-450); RED BLOOD COUNT 4.16 10^6/uL (4.30-6.10); WHITE BLOOD COUNT 15.2 10^3/uL (4.0-10.0)
[2021-08-27 05:00] LABS: ATYPICAL LYMPH 2 % (0-5); BASOPHILS 1 % (0-1); EOSINOPHILS 2 % (0-3); LYMPHOCYTES 10 % (16-44); MONOCYTES 6 % (0-5); MYELOCYTES 1 % (0-0); NEUTROPHILS 78 % (28-66)
[2021-08-27 05:01] LABS: PLATELET ESTIMATE INCREASED (NORMAL)
[2021-08-27] MEDS: ceFAZolin SOD 2 GM in IV 1 EA IV SCH (05:26)
[2021-08-27] MEDS: fentaNYL CITRATE 1,000 MCG in NS 80 ML IV SCH (05:26)
[2021-08-27] MEDS: ACETAMINOPHEN 325 MG/10.15 ML UDC GT PRN ×2 (05:30→09:37)
[2021-08-27 06:19] LABS: ALBUMIN 2.1 GM/DL (3.2-5.2); ALT/SGPT 22 U/L (12-78); BILIRUBIN,TOTAL 0.3 MG/DL (0.2-1.0); BLOOD UREA NITROGEN 27 MG/DL (7-18); CALCIUM LEVEL 8.5 MG/DL (8.5-10.1); CARBON DIOXIDE LEVEL 35 MEQ/L (21-32); CHLORIDE LEVEL 99 MEQ/L (98-107); CREATININE FOR GFR 0.72 MG/DL (0.70-1.30); GLOMERULAR FILTRATION RATE > 60.0 (>60); GLUCOSE, FASTING 146 MG/DL (70-100); MAGNESIUM LEVEL 2.1 MG/DL (1.8-2.4); POTASSIUM SERUM 3.6 MEQ/L (3.5-5.1); SODIUM LEVEL 140 MEQ/L (136-145)
[2021-08-27] MEDS: propofoL 1,000 MG in IV 1 EA IV SCH (07:46)
--- NOTE | 2021-08-27 08:12 | REP ---
INDICATION: INTUBATED COMPARISON: 08/26/2021 TECHNIQUE: Portable AP view of the chest FINDINGS: Endotracheal tube 3 cm above the moe. Nasogastric tube courses below left hemidiaphragm. Right IJ line with tip in the SVC. The mediastinum and cardiac silhouette are stable and within normal limits for portable technique. The lung samaniego demonstrate lower lobe consolidations and layering pleural effusions similar to prior examination. Skeletal structures are intact. IMPRESSION: No significant change from prior examination. Continued lower lobe consolidations and pleural effusions. <Electronically signed by Livan Harding > 08/27/21 0844
[2021-08-27 08:51] LABS: ABG BASE EXCESS 10.1 (-2.0-2.0); ABG HCO3 34.2 MEQ/L (22.0-26.0); ABG O2 SATURATION 86.2 % (95.0-99.0); ABG PARTIAL PRESSURE CO2 43.8 mmHg (35.0-45.0); ABG STANDARD HCO3 33.6 MEQ/L (22.0-26.0); ABG TOTAL CO2 35.6 MEQ/L (22.0-29.0); ABG pH (ARTERIAL) 7.511 UNITS (7.350-7.450)
[2021-08-27] MEDS ORDERED: FUROSEMIDE 40MG/4ML VIAL (J1940) IV ONE (08:55)
[2021-08-27] MEDS ORDERED: guaiFENesin ER 600 MG TAB PO SCH (09:00)
--- NOTE | 2021-08-27 09:17 | IPNPDOC ---
Text Note Date of Service The patient was seen on 08/27/21. NOTE Critical care time excluding all procedures: 45 minutes ICU day 10. Central line day 5. Intubation day 10. Cefazolin day 8. Fidaxomicin day 2. S: Patient seen and evaluated at bedside this AM. He is currently sedated and on mechanical ventilation. Per nurse, no overnight events and no additional suctioning of secretions required. Patient continues to have intermittent fevers with overnight temp 100.8F by urinary catheter temp probe. 1 incontinent bowel movements through 08/26 documented. Patient was found to have SPO2 96% on current ventilation settings. O: GEN: Sedated, NAD, laying in bed, overbreathing vent HEENT: NC/AT, PERRL, anicteric sclera, nares patent, moist mucous membranes, endotracheal tube in place NECK: IJ in place without surounding erythema, trachea midline, carotid upstroke good CARDIO: Sinus rhythm with HR 84, normal heart sounds, no murmurs/rubs/gallops, PMI nondisplaced. 2+ pitting edema bilateral hands and feet PULM: CTA with diminished breath sounds lower lobes bilaterally, no wheezing/crackles, no accessory muscles used, dull to percussion at bases bilaterally ABD: soft, nondistended, no hepatospelnomegaly, no mass/hernia. EXTREMITIES: 2+ pitting edema bilateral hands and feet, no cyanosis, 2+ PT/DP pulses bilaterally SKIN: Warm, diaphoretic. Localized ecchymosis phalanges of left palm. Extensive rash on perineum without bleeding/discharge/ulcers. NEURO: Pupils reactive. No tremor/asterixis/myoclonus, no unilateral weakness. Moves extremities spontaneously IMAGING: (08/27) CXR Moderate blunting of costophrenic angles bilaterally, improved from 08/26. Cephalization of pulmonary vessels. Perihilar fullness. Endotracheal tube in place, 6cm above ome. A/P: Taco is a 41-year-old male with acute hypoxic respiratory failure 2/2 PNA on mechanical ventilation with sedation and cefazolin day 8, also found to have C. difficile on Dificid day 2, with continued intermittent fevers, improved leukocytosis. 1. Acute hypoxic respiratory failure 2/2 PNA Patient still with significant infiltrate and possible pulmonary edema on CXR. Will try another dose of Lasix. Given improved secretions and hypoxia, patient may be a candidate for extubation today. Sedation vacation this AM to avoid oversedation, with possible extubation to follow if tolerates spontaneous breathing trial. Continue propofol 100 mg twice daily, midazolam 100 mg, fentanyl 75 mcg every 2 hours. 2. C. difficile 1 incontinent BM thru 08/26. Continue Dificid 200 mg twice daily Monitor I's and O's 3. Fever/leukocytosis Sputum culture, pending Fungal culture, pending Stop cefazolin 4. Hypokalemia K+ 3.6 Order KCl 10 mg repletion Monitor electrolytes 5. Afib- currently in sinus Continue metoprolol tartrate 25 mg twice daily On telemetry 6. Nutrition Continue Jevity 1.5 Neftaly, 50 cc/hr 7. GI prophylaxis Continue Pepcid 40mg 8. DVT Prophylaxis Continue Lovenox 40 CODE STATUS: Full code DIET: TPN ACTIVITY: Bedrest DISPO: ICU, pending clinical improvement IGigi, personally examined the patient while on sedation vacation, He was biting the tube some. Bite block placed. Not yet follow ing commands but is tolerating psv5/5 - we will recheck after trial and see if he is ready for trial of extubation today. Has some metabolic alkalosis but peripheral edema and bilateral pleural effusions. Trial of lasix to help facilitate extubation given this am. Patient treated for staph pneumonia, will d/c cefazolin to help recovery of c. diff. I agree with the assessment and findings as outlined above by the resident. Critical care at bedside adjusting mechanical ventialtion and assessing for extubation criteria. VS,Alfredoe, I+O VS, Alfredoe, I+O Laboratory Tests 08/27/21 04:05 Vital Signs Date Time Temp Pulse Resp B/P (MAP) Pulse Ox O2 Delivery O2 Flow Rate FiO2 08/27/21 07:59 91 21 95 55 08/27/21 07:46 100.8 114/59 Ventilator 08/25/21 11:12 100.0 I&O- Last 24 Hours up to 6 AM 08/27/21 05:59 Intake Total 3030.4 ml Output Total 3310 ml Balance -279.6 ml Prema Metz DO Aug 27, 2021 09:17 GIGI JAEGER DO F.C.C.P Aug 27, 2021 09:28
[2021-08-27] MEDS: ENOXAPARIN 40MG/0.4ML SYRINGE (J1650 PER 10MG) SC SCH (09:20)
[2021-08-27] MEDS: FIDAXOMICIN 200 MG TAB (DIFICID) PO SCH ×2 (09:20→20:16)
[2021-08-27] MEDS: CHLORHEXIDINE GLUCONATE 0.12 % 15ML UDC (PERIDEX ORAL RINSE) MT SCH (09:20)
[2021-08-27] MEDS: METOPROLOL TART 25 MG TABLET PO SCH ×2 (09:22→20:17)
[2021-08-27] MEDS ORDERED: KCL 10MEQ/100ML SWI (KRUN) 10 MEQ in IV 1 EA IV ONE (10:00)
[2021-08-27] MEDS ORDERED: ACETAMINOPHEN TAB 650MG DOSE (2X325MG) PO PRN (12:00)
[2021-08-27] MEDS ORDERED: ACETAMINOPHEN 325 MG/10.15 ML UDC PO PRN (15:05)
[2021-08-27] MEDS: guaiFENesin SYRUP 200 MG/10 ML UDC PO PRN ×2 (15:14→20:14)
[2021-08-27] MEDS: SODIUM CHLORIDE HYPERTONIC 3% 15ML NEB SOL INH SCH ×3 (16:46→23:23)
[2021-08-27] MEDS: LEVALBUTEROL 1.25 MG/0.5 ML CONCENTRATE NEB NEB PRN (16:46)
[2021-08-27] MEDS: METOPROLOL 5 MG/5 ML VIAL IV PRN ×2 (16:54→20:14)
[2021-08-27] MEDS: ACETAMINOPHEN 325 MG/10.15 ML UDC PO PRN (20:15)
[2021-08-27] MEDS: diltiaZEM 125 MG in NS 100 ML IV SCH ×2 (21:08→21:45)
--- NOTE | 2021-08-27 21:08 | IPNPDOC ---
Subjective Date Seen The patient was seen on 08/27/21. Subjective Chief Complaint/HPI Mr. Kirkpatrick is a 41 year old male with hypertension and obesity who is here for toxic metabolic encephalopathy secondary to polysubstance abuse and MSSA pneumonia. Patient subsequently developed C. difficile. Patient was intubated on 08/18/2021 and extubated on 08/27/2021. Patient was signed out to hospitalist team. When I saw patient this morning, he was on aerosol mask at 10 L. He denies any chest pain or dyspnea but it was hard to hear and understand. Patient has been producing a lot of mucus. Start patient on hypertonic saline, guaifenesin, Acapella, and chest PT. Pulmonary had recently bronched patient and pending new sputum culture results. Otherwise, patient has C. difficile diarrhea and continues on p.o. vancomycin. Objective Physical Examination General Exam: Positive: Alert, Cooperative Eye Exam: Negative: Sclera icteric ENT Exam: Positive: Atraumatic Chest Exam: Positive: Diminished Heart Exam: Positive: Tachycardic, Regular Rhythm Abdomen Exam: Positive: Normal bowel sounds, Soft; Negative: Tenderness Extremity Exam: Positive: Edema (Bilateral pitting edema) Neuro Exam: Positive: Other (Moves extremities spontaneously) Assessment /Plan Assessment Mr. Kirkpatrick is a 41 year old male with hypertension and obesity who is here for toxic metabolic encephalopathy secondary to polysubstance abuse and MSSA pneumonia. Patient subsequently developed C. difficile. Patient was intubated on 08/18/2021 and extubated on 08/27/2021. Patient had completed a 7-day course of cefazolin for MSSA pneumonia. Bronc was performed on 08/26/2021 and new sputum culture pending. Antibiotic was discontinued to help with the C. difficile diarrhea. Patient had been on 5 days of p.o. Vanco without improvement. Patient was started on Dificid. Plan/VTE VTE Prophylaxis Ordered?: Yes Plan 1. Acute hypoxic respiratory failure status post intubation Secondary to MSSA pneumonia Complete 7 days of cefazolin Pending sputum culture from bron on 08/26/2021 Otherwise continue hypertonic saline, guaifenesin, Acapella, and chest PT PT, OT, and ST consulted status post extubation 2. C. difficile diarrhea Did not improve with 5 days p.o. vancomycin Switch to Dificid day 3 3. Fever and leukocytosis Possibly secondary to C. difficile diarrhea Continue Dificid Pending new sputum culture results Of note Legionella and strep pneumo were both negative 4. Paroxysmal atrial fibrillation Patient was on p.o. Lopressor Heart rate increased status post extubation I had added IV Lopressor but heart rate was not controlled Pulmonary/critical care started patient on diltiazem drip Echocardiogram on 08/21/2021 demonstrates EF of 60% 5. ISABELLA On admission creatinine was 3.75 Resolved, creatinine now at baseline 6. DVT prophylaxis Lovenox Disposition: Pending clinical improvement VS, I&O, 24H, Fishbone Vital Signs/I&O Vital Signs Date Time Temp Pulse Resp B/P (MAP) Pulse Ox O2 Delivery O2 Flow Rate FiO2 08/27/21 20:30 100.8 179 30 128/95 (106) 95 Aerosol Mask 10.0 80 I&O- Last 24 Hours up to 6 AM 08/27/21 06:00 Intake Total 3054 ml Output Total 3080 ml Balance -26 ml Laboratory Data 24H LABS Laboratory Tests 2 08/27/21 04:05: Immature Granulocyte % (Auto) , Neutrophils (%) (Auto) , Nucleated Red Blood Cells % (auto) 0.0, Neutrophils 78H, Lymphocytes (Manual) 10L, Monocytes (Manual) 6H, Eosinophils (Manual) 2, Basophils (Manual) 1, Myelocytes 1H, Atypical Lymphocytes 2, Platelet Estimate INCREASED, Anion Gap 6L, Glomerular Filtration Rate > 60.0, Calcium Level 8.5, Phosphorus Level 4.0, Magnesium Level 2.1, Total Bilirubin 0.3, Aspartate Amino Transf (AST/SGOT) 47H, Alanine Aminotransferase (ALT/SGPT) 22, Alkaline Phosphatase 127H, Total Protein 7.0, Albumin 2.1L, Albumin/Globulin Ratio 0.4 08/27/21 08:40: Blood Gas Bicarbonate Standard 33.6H, Arterial Blood pH 7.511H, Arterial Blood Partial Pressure CO2 43.8, Arterial Blood Partial Pressure O2 50.0L, Arterial Blood Total CO2 35.6H, Arterial Blood HCO3 34.2H, Arterial Blood Base Excess 10.1H, Arterial Blood Oxygen Saturation 86.2L 08/27/21 09:12: CBC/BMP Laboratory Tests 08/27/21 04:05 Microbiology Microbiology 08/26/21 Gram Stain - Final, Resulted 08/26/21 Sputum Culture, Resulted Pending 08/21/21 Blood Culture - Final, Complete Staphylococcus Epidermidis 08/21/21 Blood Culture - Final, Complete NO GROWTH AFTER 5 DAYS 08/19/21 Gram Stain - Final, Complete 08/19/21 Sputum Culture - Final, Complete Staphylococcus Aureus 08/18/21 Blood Culture - Final, Complete NO GROWTH AFTER 5 DAYS PRIMITIVO MAYORGA DO Aug 27, 2021 21:08
[2021-08-27 21:32] LABS: MAGNESIUM LEVEL 2.1 MG/DL (1.8-2.4); POTASSIUM SERUM 3.9 MEQ/L (3.5-5.1)
[2021-08-27] MEDS ORDERED: LORazepam 2 MG/ML VIAL IV PRN (22:10)
[2021-08-27] MEDS ORDERED: LORazepam 2 MG/ML VIAL As Ordered ONE (23:12)
[2021-08-28] VITALS (40 sets, daily range): BP systolic 98–192; BP diastolic 58–153
[2021-08-28] MEDS: DIGOXIN INJ 0.5 MG/2 ML AMP (J1160) IV SCH ×4 (00:15→09:39)
[2021-08-28] MEDS: LEVALBUTEROL 1.25 MG/0.5 ML CONCENTRATE NEB NEB PRN ×2 (02:59→15:11)
[2021-08-28] MEDS: SODIUM CHLORIDE HYPERTONIC 3% 15ML NEB SOL INH SCH ×5 (02:59→20:05)
[2021-08-28 04:52] LABS: BASO # 0.1 10^3/uL (0.0-0.2); BASO % 0.4 % (0.0-1.0); EOS # 0.1 10^3/uL (0.0-0.5); EOS % 0.7 % (0.0-3.0); HEMATOCRIT 40.7 % (42.0-52.0); HEMOGLOBIN 13.1 g/dl (13.5-17.5); LYMPH # 1.9 10^3/uL (1.5-5.0); LYMPH % 10.7 % (24.0-44.0); MEAN CORPUSCULAR HEMOGLOBIN 29.7 pg (27.0-33.0); MEAN CORPUSCULAR HGB CONC 32.2 g/dl (32.0-36.5); MEAN CORPUSCULAR VOLUME 92.3 fl (80.0-96.0); MONO % 5.7 % (2.0-8.0); NEUTROPHILS # 13.9 10^3/uL (1.5-8.5); NEUTROPHILS % 80.6 % (36.0-66.0); PLATELET COUNT, AUTOMATED 509 10^3/uL (150-450); RED BLOOD COUNT 4.41 10^6/uL (4.30-6.10); WHITE BLOOD COUNT 17.3 10^3/uL (4.0-10.0)
[2021-08-28 05:20] LABS: ALBUMIN 2.4 GM/DL (3.2-5.2); ALT/SGPT 21 U/L (12-78); BILIRUBIN,TOTAL 0.7 MG/DL (0.2-1.0); BLOOD UREA NITROGEN 27 MG/DL (7-18); CALCIUM LEVEL 8.7 MG/DL (8.5-10.1); CARBON DIOXIDE LEVEL 34 MEQ/L (21-32); CHLORIDE LEVEL 103 MEQ/L (98-107); CREATININE FOR GFR 0.64 MG/DL (0.70-1.30); GLOMERULAR FILTRATION RATE > 60.0 (>60); GLUCOSE, FASTING 131 MG/DL (70-100); PHOSPHORUS LEVEL 2.8 MG/DL (2.5-4.9); POTASSIUM SERUM 3.3 MEQ/L (3.5-5.1); SODIUM LEVEL 146 MEQ/L (136-145)
[2021-08-28] MEDS ORDERED: POTASSIUM CHLORIDE 10% LIQ 20 MEQ/15 ML UDC PO ONE (08:00)
--- NOTE | 2021-08-28 09:24 | IPNPDOC ---
Text Note Date of Service The patient was seen on 08/28/21. NOTE S: Patient seen and evaluated at bedside this AM. Reports dry cough. Denies fever/chills, shortness of breath, chest pain, palpitations. Of note, he was found to be in A. fib RVR overnight with HR [id number]. He was started on digoxin drip and lopressor with adequate response. Per nurse, he had 4 incontinent bowel movements through 08/27 and Dignicare was placed. Patient reported to have difficulty swallowing. He tells me he was unable to tolerate his clear liquids diet. Denies abdominal pain, nausea/vomiting. O: GEN: Alert and awake, NAD, sitting up in bed, refusing to speak and nodding head to answer questions, follows commands HEENT: NC/AT, EOMI, anicteric sclera, nares patent, aerosol mask on face NECK: Supple, IJ in place without surounding erythema, trachea midline, carotid upstroke good CARDIO: Sinus rhythm with frequent PVCs, tachycardic, normal heart sounds, no rubs/murmurs/gallops, 1+ pitting edema right hand and foot PULM: CTA with diminished breath sounds lower lobes bilaterally, no wheezing/crackles, no accessory muscles used, dull to percussion at bases ABD: soft, nontender, nondistended, bowel sounds present, no hepatosplenomegaly, no mass/hernia EXTREMITIES: 1+ pitting edema right hand and foot, no cyanosis, 2+ DP/PT pulses bilaterally SKIN: Warm, localized ecchymosis phalanges of left palm. Extensive rash on perineum with localized purulent discharge and without bleeding/ulcers. No additional rashes/bruising/wounds NEURO: Strength 5/5, no focal neuro deficits, no tremor/asterixis/myoclonus. Moves extremities spontaneously A/P: Taco is a 41-year-old male with acute hypoxic respiratory failure 2/2 MSSA PNA s/p intubation, also found to have C. difficile on Dificid day 3, with leukocytosis and worsening incontinence bowel movements. 1. Acute hypoxic respiratory failure 2/2 MSSA PNA Patient was extubated 08/27, following 10 days of intubation. He is currently maintaining O2 saturation >95% on aerosol mask. Can titrate FiO2 down to SPO2 >90%. He was found to still have some right hand and foot edema. Hospitalist team started Robitussin, Acapella, chest PT. Patient is currently on Dificid for C. difficile, as additional antibiotics were discontinued 08/27. PT/OT/ST evaluation and treatment as necessary, pending. 2. C. difficile 4 incontinent BM thru 08/27 and Dignicare was placed. Additional antibiotics (cefazolin) were discontinued 08/27 to increase effectiveness of Dificid. Will continue Dificid 200 mg twice daily and monitoring I's and O's. ID (Dr. Navarro) on consult, appreciate recommendations 3. Rash Patient found to have unchanged extensive rash on perineum with localized purulent drainage that appears to be a folliculitis. Will perform culturette swab of purulent drainage to rule out MRSA infection. At this time, greater suspicion for fungal infection. We will start the pt patient will be started on fluconazole and nystatin cream. 4. Fever/leukocytosis Patient found to have worsening leukocytosis and more frequent incontinent bowel movements. Currently on Dificid day 3 for C. difficile infection. He was also found to have unchanged rash on perineum with open lesion draining purulent fluid. Patient may have fungal infection and will be started on fluconazole and nystatin cream. Sputum culture without organisms, final report pending Fungal culture, pending ID (Dr. Navarro) will consult 5. Afib- currently in sinus Patient had episode of A. fib RVR with HR [id number] overnight. He was started on digoxin drip and Lopressor. He is currently in sinus rhythm with frequent PVCs, HR 104. His Lopressor was increased from 25 mg twice daily to 50 mg twice daily. Will continue rate control medications and telemetry. 6. Acute delirium Patient was found to have acute delirium overnight, most likely secondary to alcohol withdrawal and/or recent administration of polypharmacy. Patient responded well to Serax. He was placed on CIWA protocol as precaution for alcohol withdrawal symptoms. Will continue to monitor. 7. DVT Prophylaxis Continue Lovenox 40 CODE STATUS: Full code DIET: Clear liquids, pending ST evaluation ACTIVITY: Activity as tolerated DISPO: Pending clinical improvement Wilfrido Kyle, agree with the recommendations as outlined above after performing an independent history and physical. VS,Fishbone, I+O VS, Fishbone, I+O Laboratory Tests 08/27/21 20:51 08/28/21 04:01 Vital Signs Date Time Temp Pulse Resp B/P (MAP) Pulse Ox O2 Delivery O2 Flow Rate FiO2 08/28/21 06:45 114 96 08/28/21 06:30 154/65 (94) 08/28/21 04:00 80 08/28/21 04:00 100.0 24 Aerosol Mask 10.0 I&O- Last 24 Hours up to 6 AM 08/28/21 06:00 Intake Total 468 ml Output Total 2555 ml Balance -2087 ml Prema Metz DO Aug 28, 2021 09:24 WILFRIDO JAEGER Aug 28, 2021 11:50
[2021-08-28] MEDS: FIDAXOMICIN 200 MG TAB (DIFICID) PO SCH ×2 (09:35→20:22)
[2021-08-28] MEDS: METOPROLOL TART 25 MG TABLET PO SCH ×2 (09:37→20:22)
[2021-08-28] MEDS: ENOXAPARIN 40MG/0.4ML SYRINGE (J1650 PER 10MG) SC SCH (09:39)
[2021-08-28] MEDS: FLUCONAZOLE 100 MG in IV 1 EA IV SCH (16:11)
--- NOTE | 2021-08-28 18:31 | IPNPDOC ---
Subjective Date Seen The patient was seen on 08/28/21. Subjective Chief Complaint/HPI Mr. Kirkpatrick is a 41 year old male with hypertension and obesity who is here for toxic metabolic encephalopathy secondary to polysubstance abuse and MSSA pneumonia. Overnight, patient went into atrial fibrillation with RVR. Patient was dig loaded (0.75mg in total) and then started on 0.125mg IV daily. Heart rate better controlled. Patient was seen earlier in the morning on the mask 10L 80% FiO2. His voice was hoarse and he nodded yes and no to questions. He denied any chest pain or dyspnea. Objective Physical Examination General Exam: Positive: Alert, Cooperative Eye Exam: Negative: Sclera icteric ENT Exam: Positive: Atraumatic Chest Exam: Positive: Diminished Heart Exam: Positive: Tachycardic, Irregular Rhythm Abdomen Exam: Positive: Normal bowel sounds, Soft; Negative: Tenderness Extremity Exam: Positive: Edema (Bilateral pitting edema) Neuro Exam: Positive: Other (Moves extremities spontaneously) Assessment /Plan Assessment Mr. Kirkpatrick is a 41 year old male with hypertension and obesity who is here for toxic metabolic encephalopathy secondary to polysubstance abuse and MSSA pneumonia. Patient subsequently developed C. difficile. Patient was intubated on 08/18/2021 and extubated on 08/27/2021. Patient had completed a 7-day course of cefazolin for MSSA pneumonia. Bronc was performed on 08/26/2021 and new sputum culture pending. Antibiotic was discontinued to help with the C. difficile diarrhea. Patient had been on 5 days of p.o. Vanco without improvement. Patient was started on Dificid. Plan/VTE VTE Prophylaxis Ordered?: Yes Plan 1. Acute hypoxic respiratory failure status post intubation Secondary to MSSA pneumonia Complete 7 days of cefazolin Pending sputum culture from bronc on 08/26/2021 Otherwise continue hypertonic saline, guaifenesin, Acapella, and chest PT PT, OT, and ST consulted status post extubation 2. C. difficile diarrhea Did not improve with 5 days p.o. vancomycin Switch to Dificid day 4 3. Recurrent fever Possibly secondary to C. difficile diarrhea Continue Dificid Sputum culture from 08/26/21 grew decreased normal otilio Of note Legionella and strep pneumo were both negative -There is consideration of possible fungal infection. [id number] pending and fungal culture obtained. Patient started on Fluconazole -Pulmonary/critical care consulted ID 4. Atrial fibrillation with RVR Echocardiogram on 08/21/2021 demonstrates EF of 60% -Overnight patient was dig loaded -Continue Lopressor 50mg BID 5. ISABELLA On admission creatinine was 3.75 Resolved, creatinine now at baseline 6. DVT prophylaxis Lovenox Disposition: Pending clinical improvement. VS, I&O, 24H, Fishbone Vital Signs/I&O Vital Signs Date Time Temp Pulse Resp B/P (MAP) Pulse Ox O2 Delivery O2 Flow Rate FiO2 08/28/21 16:00 40 08/28/21 16:00 100.2 101 24 163/85 (111) 93 Aerosol Mask 08/28/21 04:00 10.0 I&O- Last 24 Hours up to 6 AM 08/28/21 06:00 Intake Total 468 ml Output Total 2555 ml Balance -2087 ml Laboratory Data 24H LABS Laboratory Tests 2 08/27/21 20:51: Magnesium Level 2.1 08/28/21 04:01: Magnesium Level 2.0, Immature Granulocyte % (Auto) 1.9, Neutrophils (%) (Auto) 80.6H, Lymphocytes (%) (Auto) 10.7L, Monocytes (%) (Auto) 5.7, Eosinophils (%) (Auto) 0.7, Basophils (%) (Auto) 0.4, Neutrophils # (Auto) 13.9H, Lymphocytes # (Auto) 1.9, Monocytes # (Auto) 1.0H, Eosinophils # (Auto) 0.1, Basophils # (Auto) 0.1, Nucleated Red Blood Cells % (auto) 0.0, Anion Gap 9, Glomerular Filtration Rate > 60.0, Calcium Level 8.7, Phosphorus Level 2.8#, Total Bilirubin 0.7#, Aspartate Amino Transf (AST/SGOT) 62H, Alanine Aminotransferase (ALT/SGPT) 21, Alkaline Phosphatase 121H, Total Protein 7.0, Albumin 2.4L, Albumin/Globulin Ratio 0.5 CBC/BMP Laboratory Tests 08/27/21 20:51 08/28/21 04:01 Microbiology Microbiology 08/28/21 Gram Stain - Final, Resulted 08/28/21 Bacterial Culture, Resulted Pending 08/26/21 Gram Stain - Final, Complete 08/26/21 Sputum Culture - Final, Complete 08/21/21 Blood Culture - Final, Complete Staphylococcus Epidermidis 08/21/21 Blood Culture - Final, Complete NO GROWTH AFTER 5 DAYS 08/19/21 Gram Stain - Final, Complete 08/19/21 Sputum Culture - Final, Complete Staphylococcus Aureus 08/18/21 Blood Culture - Final, Complete NO GROWTH AFTER 5 DAYS PRIMITIVO MAYORGA DO Aug 28, 2021 18:31
[2021-08-28] MEDS: guaiFENesin SYRUP 200 MG/10 ML UDC PO PRN (20:23)
[2021-08-28 21:06] LABS: BLOOD UREA NITROGEN 29 MG/DL (7-18); CALCIUM LEVEL 8.8 MG/DL (8.5-10.1); CARBON DIOXIDE LEVEL 34 MEQ/L (21-32); CHLORIDE LEVEL 108 MEQ/L (98-107); CREATININE FOR GFR 0.63 MG/DL (0.70-1.30); GLOMERULAR FILTRATION RATE > 60.0 (>60); GLUCOSE, FASTING 119 MG/DL (70-100); POTASSIUM SERUM 3.9 MEQ/L (3.5-5.1); SODIUM LEVEL 147 MEQ/L (136-145)
[2021-08-29] VITALS (22 sets, daily range): BP systolic 121–172; BP diastolic 71–108
--- NOTE | 2021-08-29 00:13 | ECGEPIP ---
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
[2021-08-29] MEDS: SODIUM CHLORIDE HYPERTONIC 3% 15ML NEB SOL INH SCH ×6 (00:17→19:38)
[2021-08-29 04:57] LABS: BASO # 0.1 10^3/uL (0.0-0.2); BASO % 0.7 % (0.0-1.0); EOS # 0.2 10^3/uL (0.0-0.5); EOS % 1.8 % (0.0-3.0); HEMATOCRIT 41.1 % (42.0-52.0); HEMOGLOBIN 13.2 g/dl (13.5-17.5); LYMPH % 15.8 % (24.0-44.0); MEAN CORPUSCULAR HEMOGLOBIN 29.6 pg (27.0-33.0); MEAN CORPUSCULAR HGB CONC 32.1 g/dl (32.0-36.5); MEAN CORPUSCULAR VOLUME 92.2 fl (80.0-96.0); MONO % 7.8 % (2.0-8.0); NEUTROPHILS # 9.1 10^3/uL (1.5-8.5); NEUTROPHILS % 72.9 % (36.0-66.0); RED BLOOD COUNT 4.46 10^6/uL (4.30-6.10); WHITE BLOOD COUNT 12.4 10^3/uL (4.0-10.0)
[2021-08-29 04:58] LABS: PLATELET COUNT, AUTOMATED 612 10^3/uL (150-450)
[2021-08-29 05:21] LABS: ALBUMIN 2.6 GM/DL (3.2-5.2); ALT/SGPT 25 U/L (12-78); BILIRUBIN,TOTAL 0.6 MG/DL (0.2-1.0); BLOOD UREA NITROGEN 31 MG/DL (7-18); CALCIUM LEVEL 8.9 MG/DL (8.5-10.1); CARBON DIOXIDE LEVEL 32 MEQ/L (21-32); CHLORIDE LEVEL 110 MEQ/L (98-107); CREATININE FOR GFR 0.68 MG/DL (0.70-1.30); GLOMERULAR FILTRATION RATE > 60.0 (>60); GLUCOSE, FASTING 123 MG/DL (70-100); POTASSIUM SERUM 3.5 MEQ/L (3.5-5.1); SODIUM LEVEL 149 MEQ/L (136-145); TOTAL PROTEIN 7.2 GM/DL (6.4-8.2)
[2021-08-29] MEDS: DIGOXIN INJ 0.5 MG/2 ML AMP (J1160) IV SCH (08:31)
[2021-08-29] MEDS: FIDAXOMICIN 200 MG TAB (DIFICID) PO SCH ×2 (08:31→20:35)
[2021-08-29] MEDS: ENOXAPARIN 40MG/0.4ML SYRINGE (J1650 PER 10MG) SC SCH (08:32)
[2021-08-29] MEDS: METOPROLOL TART 25 MG TABLET PO SCH (08:32)
[2021-08-29] MEDS: ACETAMINOPHEN 325 MG/10.15 ML UDC PO PRN (08:44)
[2021-08-29] MEDS ORDERED: METOPROLOL TART 50 MG TAB PO SCH (09:00)
[2021-08-29] MEDS ORDERED: VARIBAR NECTAR 40% w/v 240ML SUSP BTL As Ordered ONE (10:37)
[2021-08-29] MEDS ORDERED: BARIUM SULFATE 700 MG TABLET (E-Z-DISK) As Ordered ONE (10:37)
[2021-08-29] MEDS ORDERED: VARIBAR PUDDING 40% w/v 230ML TUBE As Ordered ONE (10:37)
[2021-08-29] MEDS ORDERED: E-Z-PAQUE 96% w/w SUSP 176GM BTL As Ordered ONE (10:37)
--- NOTE | 2021-08-29 11:02 | IPNPDOC ---
Text Note Date of Service The patient was seen on 08/29/21. NOTE S: Patient seen and evaluated at bedside this AM. Reports productive cough of mucus. Denies shortness of breath, chest pain, palpitations. Dignicare is in place and, per documentation, he had 200 mL stool through 08/28. Per nurse, intermittent low-grade fevers (100.8 F by urinary catheter) that responds adequately to Tylenol. Denies arrhythmias, A. fib overnight. Patient was seen and evaluated by PT/OT 08/28 and was able to sit up on the edge of bed. He was also seen and evaluated by speech therapy 08/28 for difficulty swallowing and is currently NPO except for meds for aspiration risk. Per nurse, he tolerated his morning meds crushed in applesauce this AM. Denies abdominal pain, nausea/vomiting. O: GEN: Alert and awake, NAD, sitting up in bed, refusing to speak and nodding head to answer questions, follows simple commands HEENT: NC/AT, EOMI with slow tracking, anicteric sclera, nasal cannula in place, moist mucous membranes with significant secretions NECK: Supple, IJ in place without surounding erythema, trachea midline, carotid upstroke good CARDIO: Sinus rhythm with PVCs, normal rate, normal heart sounds, no rubs/murmurs/gallops, 1+ pitting edema bilateral hands/bilateral lower extremities PULM: CTA with diminished breath sounds lower lobes bilaterally, no wheezing/crackles, no accessory muscles used, dull to percussion at bases ABD: soft, nontender, nondistended, bowel sounds present, no hepatosplenomegaly, no mass/hernia EXTREMITIES: 1+ pitting edema bilateral hands/bilateral lower extremities, no cyanosis, 2+ DP/PT pulses bilaterally SKIN: Warm, localized ecchymosis phalanges of left palm. Extensive rash on perineum with localized purulent discharge and without bleeding/ulcers. No additional rashes/bruising/wounds NEURO: Strength 5/5, no focal neuro deficits, no tremor/asterixis/myoclonus. Moves extremities spontaneously A/P: Taco is a 41-year-old male with acute hypoxic respiratory failure 2/2 MSSA PNA s/p intubation (), also found to have C. difficile on Dificid day 4, with improving leukocytosis and Dignicare in place. 1. Acute hypoxic respiratory failure 2/2 MSSA PNA Patient intubated and on mechanical ventilation . He was found to have appropriate O2 saturation on aerosol mask through 08/28 and is currently maintaining SPO2 > 95% on 5L via nasal cannula. Can continue to titrate suppleme ntal O2 down to SPO2 >90%. He was found to still have minimal edema in the bilateral extremities. Currently receiving Robitussin, Xopenex neb, Acapella, chest PT. He has been transferred to PCU status by Hospitalist service. He was seen and evaluated by PT/OT 08/28 who recommended rehab following discharge. He was also seen and evaluated by ST 08/28 for oral dysphagia and currently NPO except meds for risk of aspiration. Patient found to have copious secretions with difficulty clearing and following direction. He will continue to receive PT/OT and ST therapy. 2. C. difficile Patient currently on Dificid day 4, following 10 days of vancomycin. He is currently not on any antibiotics. Dignicare in place with 200 mL stool recorded through 08/28. Will continue Dificid 200 mg twice daily and monitoring I's and O's. ID (Dr. Navarro) on consult, appreciate recommendations 3. Rash Patient found to have unchanged extensive rash on perineum with localized purulent drainage that appears to be a folliculitis. Bacterial skin culture performed 08/28 without organisms, final results pending. At this time, greater suspicion for candidal infection. Patient on fluconazole day 2 and nystatin cre am. 4. Fever/leukocytosis Patient found to have improving leukocytosis, intermittent low-grade fevers (100.8 F) with adequate response to Tylenol, and continued voluminous stool output via rectal tube. Currently on Dificid day 4 for C. difficile infection. He was also found to have unchanged rash on perineum with open lesion draining purulent fluid. Currently suspect fungal infection and he is on fluconazole day 2 and nystatin cream. (08/26) sputum culture negative. At this time, his fever and leukocytosis is most likely not a result of unresolved MSSA pneumonia. Fungal blood culture, pending. Low suspicion for systemic fungal infection. (08/28) bacterial skin culture, pending. At this time, culture is without organisms. Current rash on perineum is most likely a fungal origin rather than bacterial infection. ID (Dr. Navarro) will consult 5. Afib- currently in sinus Patient currently on digoxin drip and Lopressor 50mg twice daily and found to be in sinus rhythm with PVCs, HR 99. No episodes of arrhythmia or A. fib. Will continue rate control medications and telemetry. 6. Acute delirium Patient's delirium, most likely secondary to alcohol withdrawal and/or recent administration of polypharmacy, with slow improvement. He is currently on CIWA protocol as precaution for alcohol withdrawal symptoms. He is able to follow simple commands and responds to yes/no questions only by nodding his head. He was seen and evaluated by PT/OT, ST 08/28 and was found to be nonverbal with difficulty clearing secretions and following limited direction. He is currently NPO except meds due to risk for aspiration and need for frequent cues. Barium swallow to be performed this AM. Will continue frequent PT/OT and ST evaluation and treatment as needed. Will continue to monitor. 7. DVT Prophylaxis Continue Lovenox 40 CODE STATUS: Full code DIET: NPO except meds ACTIVITY: Activity as tolerated, assisted ambulation only DISPO: Rehab upon discharge, pending clinical improvement, per PT/OT recommendations Wilfrido Kyle, agree with the assessment and plan as outlined above after co nducting an independent history and physical. At this point in time he shows clinical improvement in leukocytosis and oxygen requirements and therefore will be signing off. Concern still remains about delirium, would continue to monitor. If no clearance of mentation may require neurologic work up. VS,Fishbone, I+O VS, Fishbone, I+O Laboratory Tests 08/28/21 20:07 08/29/21 03:48 Vital Signs Date Time Temp Pulse Resp B/P (MAP) Pulse Ox O2 Delivery O2 Flow Rate FiO2 08/29/21 10:00 100.4 100 140/72 (94) 95 Nasal Cannula 4.0 08/29/21 08:00 24 08/29/21 04:00 40 I&O- Last 24 Hours up to 6 AM 08/29/21 06:00 Intake Total 70 ml Output Total 2230 ml Balance -2160 ml Prema Metz DO Aug 29, 2021 11:02 WILFRIDO JAEGER DO F.C.C.P Aug 29, 2021 12:27
[2021-08-29] MEDS ORDERED: ACETAMINOPHEN TAB 650MG DOSE (2X325MG) PO PRN (12:00)
[2021-08-29] MEDS: D5W/0.45% SODIUM CHLORIDE 1,000 ML IV SCH ×2 (12:59→20:33)
[2021-08-29] MEDS: FLUCONAZOLE 100 MG in IV 1 EA IV SCH (12:59)
--- NOTE | 2021-08-29 13:09 | REP ---
INDICATION: dysphagia - s/p extubation. COMPARISON: None. TECHNIQUE: The procedure was performed by MILTON Aldridge, under the direct supervision of Dr. Lopez. The procedure was performed with Carrie Elliott from speech pathology present. 5 ml aliquots of thin, nectar, honey and pudding consistency barium was administered. FINDINGS: Penetration and aspiration was seen on thin barium. The patient was able to successfully swallow all other consistencies of barium without penetration or aspiration. The detailed report of this examination will be provided by speech pathology. IMPRESSION: Penetration and aspiration was seen on thin barium. The patient was able to successfully swallow all other consistencies of barium without penetration or aspiration. Please see detailed speech pathology report for further evaluation. 1.4 minutes of fluoroscopy time was utilized for this procedure. Some fluoroscopic images are performed with last image hold technology. These images require no additional radiation <Electronically signed by Akiko Moody > 08/29/21 1230 <Electronically signed by Иван Lopez > 08/29/21 1549
[2021-08-29] MEDS: NYSTATIN CREAM 15 GM TOP SCH ×2 (13:23→20:34)
[2021-08-29] MEDS: METOPROLOL TART 50 MG TAB PO SCH ×2 (16:30→20:35)
[2021-08-29 16:47] LABS: C REACTIVE PROTEIN QUANTITATIV 5.48 MG/DL (0.00-0.30)
--- NOTE | 2021-08-29 17:19 | IPNPDOC ---
Subjective Date Seen The patient was seen on 08/29/21. Subjective Chief Complaint/HPI Mr. Kirkpatrick is a 41 year old male with hypertension and obesity who is here for toxic metabolic encephalopathy secondary to polysubstance abuse and MSSA pneumonia. Patient was seen this morning, and he had been weaned down to nasal cannula. His voice is very hoarse, but he denies any chest pain or dyspnea. He feels hungry. Speech therapy evaluated patient and recommended pudding thick liquids and pured diet. Objective Physical Examination General Exam: Positive: Alert, Cooperative Eye Exam: Negative: Sclera icteric ENT Exam: Positive: Atraumatic Chest Exam: Positive: Diminished Heart Exam: Positive: Tachycardic, Irregular Rhythm Abdomen Exam: Positive: Normal bowel sounds, Soft; Negative: Tenderness Extremity Exam: Positive: Edema (Bilateral pitting edema) Neuro Exam: Negative: Normal Speech (Very hoarse) Psych Exam: Positive: Mood NL Assessment /Plan Assessment Mr. Kirkpatrick is a 41 year old male with hypertension and obesity who is here for toxic metabolic encephalopathy secondary to polysubstance abuse and MSSA pneumonia. Patient subsequently developed C. difficile. Patient was intubated on 08/18/2021 and extubated on 08/27/2021. Patient had completed a 7-day course of cefazolin for MSSA pneumonia. Bronc was performed on 08/26/2021 and new sputum culture pending. Antibiotic was discontinued to help with the C. difficile diarrhea. Patient had been on 5 days of p.o. Vanco without improvement. Patient was started on Dificid. Plan/VTE VTE Prophylaxis Ordered?: Yes Plan 1. Acute hypoxic respiratory failure status post intubation Secondary to MSSA pneumonia Complete 7 days of cefazolin Pending sputum culture from bronc on 08/26/2021 Otherwise continue hypertonic saline, guaifenesin, Acapella, and chest PT PT, OT, and ST consulted status post extubation 2. C. difficile diarrhea Did not improve with 5 days p.o. vancomycin Switch to Dificid day 5 3. Recurrent fever Possibly secondary to C. difficile diarrhea versus rash on peritoneum (fungal) Continue Dificid Sputum culture from 08/26/21 grew decreased normal otilio Of note Legionella and strep pneumo were both negative -There is consideration of possible fungal infection. [id number] pending and fungal culture obtained. Patient started on Fluconazole -Pulmonary/critical care consulted ID, recommendations repeat 4. Atrial fibrillation with RVR Echocardiogram on 08/21/2021 demonstrates EF of 60% -Overnight patient was dig loaded -Continue Lopressor 50mg BID 5. ISABELLA On admission creatinine was 3.75 Resolved, creatinine now at baseline 6. DVT prophylaxis Lovenox Disposition: Pending clinical improvement. Physical therapy and occupational therapy recommending rehab VS, I&O, 24H, Fishbone Vital Signs/I&O Vital Signs Date Time Temp Pulse Resp B/P (MAP) Pulse Ox O2 Delivery O2 Flow Rate FiO2 08/29/21 16:30 100 149/89 08/29/21 16:00 2.0 08/29/21 16:00 99.7 22 90 Nasal Cannula 08/29/21 04:00 40 I&O- Last 24 Hours up to 6 AM 08/29/21 06:00 Intake Total 70 ml Output Total 2230 ml Balance -2160 ml Laboratory Data 24H LABS Laboratory Tests 2 08/28/21 20:07: Anion Gap 5L, Glomerular Filtration Rate > 60.0, Calcium Level 8.8 08/29/21 03:48: Anion Gap 7L, Glomerular Filtration Rate > 60.0, Calcium Level 8.9, Immature Granulocyte % (Auto) 1.0, Neutrophils (%) (Auto) 72.9H, Lymphocytes (%) (Auto) 15.8L, Monocytes (%) (Auto) 7.8, Eosinophils (%) (Auto) 1.8, Basophils (%) (Auto) 0.7, Neutrophils # (Auto) 9.1H, Lymphocytes # (Auto) 2.0, Monocytes # (Auto) 1.0H, Eosinophils # (Auto) 0.2, Basophils # (Auto) 0.1, Nucleated Red Blood Cells % (auto) 0.0, Total Bilirubin 0.6, Aspartate Amino Transf (AST/SGOT) 52H, Alanine Aminotransferase (ALT/SGPT) 25, Alkaline Phosphatase 110, Total Protein 7.2, Albumin 2.6L, Albumin/Globulin Ratio 0.6 CBC/BMP Laboratory Tests 08/28/21 20:07 08/29/21 03:48 Microbiology Microbiology 08/28/21 Gram Stain - Final, Resulted 08/28/21 Bacterial Culture, Resulted Pending 08/26/21 Gram Stain - Final, Complete 08/26/21 Sputum Culture - Final, Complete 08/21/21 Blood Culture - Final, Complete Staphylococcus Epidermidis 08/21/21 Blood Culture - Final, Complete NO GROWTH AFTER 5 DAYS 08/19/21 Gram Stain - Final, Complete 08/19/21 Sputum Culture - Final, Complete Staphylococcus Aureus PRIMITIVO MAYORGA DO Aug 29, 2021 17:17
[2021-08-29 17:40] LABS: HIV 1&2 SCREEN CENTAUR NEGATIVE (NEGATIVE)
[2021-08-29 17:45] LABS: HEPATITIS C VIRUS ABY INDEX > 11.0 INDEX (<0.8)
[2021-08-29] MEDS: LEVALBUTEROL 1.25 MG/0.5 ML CONCENTRATE NEB NEB PRN (19:38)
[2021-08-29] MEDS: FLUCONAZOLE 100 MG TAB PO SCH (20:34)
[2021-08-30] VITALS (8 sets, daily range): BP systolic 97–166; BP diastolic 46–84
[2021-08-30] MEDS: SODIUM CHLORIDE HYPERTONIC 3% 15ML NEB SOL INH SCH ×6 (00:36→23:57)
[2021-08-30] MEDS: LEVALBUTEROL 1.25 MG/0.5 ML CONCENTRATE NEB NEB PRN ×3 (00:36→15:11)
[2021-08-30] MEDS: D5W/0.45% SODIUM CHLORIDE 1,000 ML IV SCH ×3 (04:45→17:52)
[2021-08-30 04:47] LABS: BASO # 0.1 10^3/uL (0.0-0.2); BASO % 0.8 % (0.0-1.0); EOS # 0.3 10^3/uL (0.0-0.5); EOS % 2.6 % (0.0-3.0); HEMATOCRIT 40.2 % (42.0-52.0); HEMOGLOBIN 12.9 g/dl (13.5-17.5); LYMPH % 15.4 % (24.0-44.0); MEAN CORPUSCULAR HEMOGLOBIN 29.8 pg (27.0-33.0); MEAN CORPUSCULAR HGB CONC 32.1 g/dl (32.0-36.5); MEAN CORPUSCULAR VOLUME 92.8 fl (80.0-96.0); MONO % 7.7 % (2.0-8.0); NEUTROPHILS # 9.4 10^3/uL (1.5-8.5); NEUTROPHILS % 72.7 % (36.0-66.0); PLATELET COUNT, AUTOMATED 631 10^3/uL (150-450); RED BLOOD COUNT 4.33 10^6/uL (4.30-6.10); WHITE BLOOD COUNT 12.9 10^3/uL (4.0-10.0)
[2021-08-30 05:06] LABS: ALBUMIN 2.5 GM/DL (3.2-5.2); ALT/SGPT 21 U/L (12-78); BILIRUBIN,TOTAL 0.6 MG/DL (0.2-1.0); BLOOD UREA NITROGEN 30 MG/DL (7-18); CALCIUM LEVEL 8.6 MG/DL (8.5-10.1); CARBON DIOXIDE LEVEL 31 MEQ/L (21-32); CHLORIDE LEVEL 114 MEQ/L (98-107); CREATININE FOR GFR 0.68 MG/DL (0.70-1.30); GLOMERULAR FILTRATION RATE > 60.0 (>60); GLUCOSE, FASTING 129 MG/DL (70-100); POTASSIUM SERUM 3.8 MEQ/L (3.5-5.1); SODIUM LEVEL 151 MEQ/L (136-145); TOTAL PROTEIN 6.8 GM/DL (6.4-8.2)
[2021-08-30] MEDS: ENOXAPARIN 40MG/0.4ML SYRINGE (J1650 PER 10MG) SC SCH (08:04)
[2021-08-30] MEDS: FIDAXOMICIN 200 MG TAB (DIFICID) PO SCH ×2 (08:04→20:44)
[2021-08-30] MEDS: METOPROLOL TART 50 MG TAB PO SCH ×3 (08:05→20:45)
[2021-08-30] MEDS: NYSTATIN CREAM 15 GM TOP SCH ×2 (08:06→20:31)
[2021-08-30] MEDS: DIGOXIN INJ 0.5 MG/2 ML AMP (J1160) IV SCH (08:06)
[2021-08-30] MEDS ORDERED: NEOSPORIN TOP OINT 15GM TOP ONE (08:35)
[2021-08-30] MEDS ORDERED: NEOSPORIN OINT 0.9 GM PKT TOP ONE (08:55)
--- NOTE | 2021-08-30 10:10 | CR ---
CONSULTATION DATE: 08/29/2021 REASON FOR CONSULTATION: Asked to consult by Dr. Cameron for evaluation of Clostridium difficile colitis and buttock folliculitis. HISTORY OF PRESENT ILLNESS: Taco is a 41-year-old gentleman who was admitted on 08/18 after he was found by the police minimally responsive. The ambulance brought him to [facility]. He has a history of polysubstance abuse. He had altered mental status. He was hemodynamically stable, but hypothermic and mildly hypoxic. The patient became agitated, given Ativan and required intubation for respiratory depression. The patient had a combined metabolic and respiratory acidosis with a pH of 6.9. He was intubated for 8 days. The patient had a sputum culture that was done on 08/19, which was positive for methicillin-susceptible Staphylococcus aureus (MSSA). 08/26 sputum culture was negative. Blood cultures were negative on admission; on 08/21, one out of two Staphylococcus epidermidis. The patient was on antibiotics with initially broad-spectrum antibiotics, cefepime and vancomycin from 08/18 to 08/20 and then from 08/20 to 08/27, he was on IV cefazolin for pneumonia with Staphylococcus aureus. The patient developed diarrhea on 08/25 and was started on Dificid for Clostridium difficile colitis. He has had persistent fevers since admission, although not as high grade. PAST MEDICAL HISTORY: Significant for: 1. Hypertension 2. Obesity. 3. Polysubstance abuse, recently with nasal cocaine, previously with IV drugs. He stated he had hepatitis C negative testing in the past and was not ever told he had hepatitis C. FAMILY HISTORY: Non-revealing SOCIAL HISTORY: He is to [place]. He has twins that are 7 months old. There is a custody davies. The patient states he is depressed and he was suicidal when he came that is why he did overdose. He does not know what he overdosed on. I could not get whether he overdosed on drugs or medications. ALLERGIES: No known drug allergies. MEDICATIONS: Metoprolol 50 mg by mouth three times a day, Tylenol as needed, nystatin topical cream to buttock area, fluconazole 100 mg IV q 24 hours, digoxin 0.125 mg IV daily, lorazepam 2 mg IV q 4 hours as needed, metoprolol as needed 5 mg IV, [id number] 200 mg by mouth twice a day started on 08/25, currently day #4. LABORATORY DATA: White count 12.4, hemoglobin 13.2, hematocrit 41.1, platelets 612, 83% neutrophils, 16% lymphocytes, 8 monocytes. Sodium 149, potassium 3.5, chloride 110, bicarbonate 32, BUN 31, creatinine 0.68, glucose 123, calcium 8.9, magnesium 2, bilirubin 0.6, AST 52, ALT 25, alkaline phosphatase 110, AST on admission was 393. Albumin 2.6. On 08/18, blood culture one set was negative. Sputum culture 08/19, methicillin-susceptible Staphylococcus aureus (MSSA). On 08/21, two sets of blood cultures, one of two Staphylococcus epidermidis. On 08/26, sputum culture, a few white cells, good specimen, decreased otilio, no organisms. Buttock culture pending. IMAGING DATA: Esophageal x-ray with some aspiration of thin Barium but the patient was able to swallow other consistencies without penetration or aspiration. Chest x-ray on 08/27: No significant change. Continued lower lobe consolidation and pleural effusion on portable chest. Chest CT done on 08/19: Showed small to moderate bilateral pleural effusions along with lower lobe consolidation identified with patchy perihilar infiltrates. SEROLOGY: Clostridium difficile positive on 08/21. Hepatitis C antibody positive 08/29. RNA is pending. HIV negative. Urinary antigen negative. Pneumococcal antigen negative. Beta 1-3d glucan pending. IMPRESSION: This is a 41-year-old gentleman with a history of polysubstance abuse. Drug screen was positive for amphetamines, cocaine and marijuana. On admission, admitted with mental status changes and altered mental status requiring intubation due to agitation. The patient was treated for Staphylococcus aureus pneumonia with 10 days of antibiotics. He has developed Clostridium difficile colitis on 08/21, was treated with vancomycin without improvement and then fidaxomicin. He also had some buttock folliculitis with rash that looked candidiasis. He was started on fluconazole IV with improvement since yesterday. The patient has had persistent fevers over the past 10 days in spite initially he was hypothermic. PLAN: 1- Discontinue Starr catheter. The patient does not need any critical monitoring. 2- Continue IV fluconazole. The patient could be switched to by mouth as he is taking by mouth for five days. 3- Remove the right IJ central line if nurse able to find a peripheral IV to decrease the risk of line infection. I discussed the case with his RN jean claude, who will try to find a peripheral IV access. 4- Continue fidaxomicin for 10 to 14 days. 5- If the patient continues to have fevers, will obtain a follow up chest CT. 6- Please obtain mental health psychiatry consultation tomorrow. The patient admits to having severe depression and possible suicidal ideation as well. 7- hepatitis C, the patient will be treated as an outpatient. The patient will need also to go to addiction services for cocaine abuse. REINA
[2021-08-30] MEDS ORDERED: E-Z-PAQUE 96% w/w SUSP 176GM BTL As Ordered ONE (11:17)
[2021-08-30] MEDS ORDERED: BARIUM SULFATE 700 MG TABLET (E-Z-DISK) As Ordered ONE (11:17)
[2021-08-30] MEDS ORDERED: VARIBAR PUDDING 40% w/v 230ML TUBE As Ordered ONE (11:17)
[2021-08-30] MEDS ORDERED: VARIBAR NECTAR 40% w/v 240ML SUSP BTL As Ordered ONE (11:17)
[2021-08-30] MEDS ORDERED: LIDOCAINE 1% MDV 20ML VIAL As Ordered ONE (12:04)
--- NOTE | 2021-08-30 15:16 | REP ---
INDICATION: recent extubation. COMPARISON: None. TECHNIQUE: The procedure was performed by MILTON Aldridge, under the direct supervision of Dr. Lopez. The procedure was performed with Deirdre Borrero from speech pathology present. 5 ml aliquots of honey, nectar, pudding, mixed fruit, hard food and pill consistency barium was administered. FINDINGS: Penetration without aspiration was seen with nectar consistency barium. The patient was able to successfully swallow all other consistencies of barium without penetration or aspiration. The detailed report of this examination will be provided by speech pathology. IMPRESSION: Penetration without aspiration was seen with nectar consistency barium. The patient was able to successfully swallow all other consistencies of barium without penetration or aspiration. 1.5 minutes of fluoroscopy time was utilized for this procedure. Some fluoroscopic images are performed with last image hold technology. These images require no additional radiation <Electronically signed by Akiko Moody > 08/30/21 [id number] <Electronically signed by Иван Lopez > 08/30/21 [id number]
--- NOTE | 2021-08-30 15:59 | REP ---
INDICATION: Unable to get peripherals. COMPARISON: None. TECHNIQUE: The procedure was performed under the direct supervision of Dr. Lopez. The risks and benefits of the procedure were explained to the patient and informed consent was obtained. The right basilic vein was localized using ultrasound guidance. The skin was prepped and draped in a sterile fashion. 1 mL of 1% lidocaine was used as a local anesthetic. Using ultrasound guidance the basilic vein was cannulated and a 0.018 guidewire was inserted and advanced to the SVC using fluoroscopic guidance, and last image hold technology. The needle was removed and a 5.5 Maltese dilator and peel-away sheath was inserted over the guide wire. A 5.5 Maltese dual lumen catheter was cut to length of 42 cm. The dilator was removed and the catheter was inserted over the guide wire with the tip ending in the SVC. The peel-away sheath was removed and the catheter was flushed with heparinized saline as per Hospital protocol. The catheter was affixed to the skin and a sterile dressing was applied. Estimated blood loss: Less than 1 mL The patient tolerated the procedure well and there were no immediate complications. 0.2 minutes of fluoro time was utilized for this procedure. FINDINGS: None IMPRESSION: PICC line insertion right basilic vein with the tip ending in the SVC. <Electronically signed by Franc العراقي > 08/30/21 [id number] <Electronically signed by Иван Lopez > 08/30/21 [id number]
[2021-08-30] MEDS ORDERED: SODIUM CHLORIDE 0.9% INJ 10 ML SYR IV PRN (18:35)
--- NOTE | 2021-08-30 18:45 | IPNPDOC ---
Subjective Date Seen The patient was seen on 08/30/21. Subjective Chief Complaint/HPI Mr. Kirkpatrick is a 41 year old male with hypertension and obesity who is here for toxic metabolic encephalopathy secondary to polysubstance abuse and MSSA pneumonia. No fevers overnight, last fever morning of 08/29/21. Patient was seen in the morning. He was sitting up in the chair and off of oxygen. Voice is stronger and more clear. He denied any chest pain or dyspnea. Still working with physical therapy and occupational therapy. Will reach out to psych tomorrow about evaluation. Otherwise, unable to find peripheral. PICC line was ordered instead. Right IJ to be removed Objective Physical Examination General Exam: Positive: Alert, Cooperative Eye Exam: Negative: Sclera icteric ENT Exam: Positive: Atraumatic Chest Exam: Positive: Diminished Heart Exam: Positive: Rate Normal, Irregular Rhythm Abdomen Exam: Positive: Normal bowel sounds, Soft; Negative: Tenderness Extremity Exam: Positive: Edema (Bilateral pitting edema) Neuro Exam: Negative: Normal Speech (Voice hoarse but getting stronger and clearer) Psych Exam: Positive: Mood NL Assessment /Plan Assessment Mr. Kirkpatrick is a 41 year old male with hypertension and obesity who is here for toxic metabolic encephalopathy secondary to polysubstance abuse and MSSA pneumonia. Patient subsequently developed C. difficile. Patient was intubated on 08/18/2021 and extubated on 08/27/2021. Patient had completed a 7-day course of cefazolin for MSSA pneumonia. Bronc was performed on 08/26/2021 and new sputum culture pending. Antibiotic was discontinued to help with the C. difficile diarrhea. Patient had been on 5 days of p.o. Vanco without improvement. Patient was started on Dificid. Will reach out to psychiatry tomorrow about patient's depression. Plan/VTE VTE Prophylaxis Ordered?: Yes Plan 1. Acute hypoxic respiratory failure status post intubation Secondary to MSSA pneumonia Complete 7 days of cefazolin Sputum culture from bronch on 08/26/21 was negative -Repeat sputum culture from 08/28/21 grew some yeast like organisms Otherwise continue hypertonic saline, guaifenesin, Acapella, and chest PT PT, OT, and ST consulted status post extubation 2. C. difficile diarrhea Did not improve with 5 days p.o. vancomycin Switch to Dificid day 7 3. Recurrent fever Possibly secondary to C. difficile diarrhea versus rash on peritoneum (fungal) Continue Dificid Sputum culture from 08/26/21 grew decreased normal otilio. Sputum culture from 08/28/21 grew yeast Of note Legionella and strep pneumo were both negative -There is consideration of possible fungal infection. [id number] pending and fungal culture obtained. Patient started on Fluconazole -Pulmonary/critical care consulted ID, recommendations appreciated 4. Atrial fibrillation with RVR Echocardiogram on 08/21/2021 demonstrates EF of 60% -Continue Lopressor 50mg BID -Continue digoxin, check digoxin level in the morning 5. ISABELLA On admission creatinine was 3.75 Resolved, creatinine now at baseline 6. DVT prophylaxis Lovenox Disposition: Pending clinical improvement. Physical therapy and occupational therapy recommending rehab. Will reach out to psych tomorrow. VS, I&O, 24H, [facility] Vital Signs/I&O Vital Signs Date Time Temp Pulse Resp B/P (MAP) Pulse Ox O2 Delivery O2 Flow Rate FiO2 08/30/21 17:52 79 141/81 08/30/21 17:51 23 94 Room Air 08/30/21 12:20 97.8 08/30/21 04:00 3.0 08/29/21 04:00 40 I&O- Last 24 Hours up to 6 AM 08/30/21 06:00 Intake Total 425 ml Output Total 2205 ml Balance -1780 ml Laboratory Data 24H LABS Laboratory Tests 2 08/30/21 04:20: Immature Granulocyte % (Auto) 0.8, Neutrophils (%) (Auto) 72.7H, Lymphocytes (%) (Auto) 15.4L, Monocytes (%) (Auto) 7.7, Eosinophils (%) (Auto) 2.6, Basophils (%) (Auto) 0.8, Neutrophils # (Auto) 9.4H, Lymphocytes # (Auto) 2.0, Monocytes # (Auto) 1.0H, Eosinophils # (Auto) 0.3, Basophils # (Auto) 0.1, Nucleated Red Blood Cells % (auto) 0.0, Anion Gap 6L, Glomerular Filtration Rate > 60.0, Calci um Level 8.6, Total Bilirubin 0.6, Aspartate Amino Transf (AST/SGOT) 34, Alanine Aminotransferase (ALT/SGPT) 21, Alkaline Phosphatase 95, Total Protein 6.8, Albumin 2.5L, Albumin/Globulin Ratio 0.6 CBC/BMP Laboratory Tests 08/30/21 04:20 Microbiology Microbiology 08/28/21 Gram Stain - Final, Resulted 08/28/21 Bacterial Culture - Preliminary, Resulted Yeast Like Organism 08/26/21 Gram Stain - Final, Complete 08/26/21 Sputum Culture - Final, Complete 08/21/21 Blood Culture - Final, Complete Staphylococcus Epidermidis 08/21/21 Blood Culture - Final, Complete NO GROWTH AFTER 5 DAYS PRIMITIVO MAYORGA DO Aug 30, 2021 18:45
[2021-08-30] MEDS: FLUCONAZOLE 100 MG TAB PO SCH (20:44)
[2021-08-31] MEDS: D5W/0.45% SODIUM CHLORIDE 1,000 ML IV SCH ×4 (02:08→23:27)
[2021-08-31] MEDS: SODIUM CHLORIDE HYPERTONIC 3% 15ML NEB SOL INH SCH (03:00)
[2021-08-31] MEDS: SODIUM CHLORIDE 0.9% INJ 10 ML SYR IV SCH ×2 (05:10→18:05)
[2021-08-31 05:30] LABS: HEMATOCRIT 36.9 % (42.0-52.0); HEMOGLOBIN 11.8 g/dl (13.5-17.5); MEAN CORPUSCULAR HEMOGLOBIN 29.6 pg (27.0-33.0); MEAN CORPUSCULAR VOLUME 92.7 fl (80.0-96.0); PLATELET COUNT, AUTOMATED 554 10^3/uL (150-450); RED BLOOD COUNT 3.98 10^6/uL (4.30-6.10); WHITE BLOOD COUNT 12.5 10^3/uL (4.0-10.0)
[2021-08-31 05:55] LABS: BLOOD UREA NITROGEN 23 MG/DL (7-18); CALCIUM LEVEL 7.8 MG/DL (8.5-10.1); CARBON DIOXIDE LEVEL 29 MEQ/L (21-32); CHLORIDE LEVEL 111 MEQ/L (98-107); CREATININE FOR GFR 0.62 MG/DL (0.70-1.30); GLOMERULAR FILTRATION RATE > 60.0 (>60); GLUCOSE, FASTING 115 MG/DL (70-100); MAGNESIUM LEVEL 1.6 MG/DL (1.8-2.4); POTASSIUM SERUM 3.7 MEQ/L (3.5-5.1); SODIUM LEVEL 146 MEQ/L (136-145)
[2021-08-31 06:00] VITALS: BP 139/86
[2021-08-31] MEDS: MAG SULF 1GM/100ML (MAG RUN) 1 GM in IV 1 EA IV SCH ×2 (08:37→10:11)
[2021-08-31] MEDS: FIDAXOMICIN 200 MG TAB (DIFICID) PO SCH ×2 (08:41→21:41)
[2021-08-31] MEDS: DIGOXIN 0.125 MG TAB PO SCH (08:41)
[2021-08-31] MEDS: METOPROLOL TART 50 MG TAB PO SCH ×3 (08:42→21:41)
[2021-08-31] MEDS: NYSTATIN CREAM 15 GM TOP SCH ×2 (08:43→21:42)
[2021-08-31] MEDS: ENOXAPARIN 40MG/0.4ML SYRINGE (J1650 PER 10MG) SC SCH (08:43)
[2021-08-31 14:00] VITALS: BP 115/61
--- NOTE | 2021-08-31 14:13 | IPNPDOC ---
Subjective Date Seen The patient was seen on 08/31/21. Subjective Chief Complaint/HPI Mr. Kirkpatrick is a 41 year old male with hypertension and obesity who is here for toxic metabolic encephalopathy secondary to polysubstance abuse and MSSA pneumonia. Patient continues to be afebrile. Last fever 08/29/21. This morning, patient is feeling better and his voice is stronger. He does not remember if he had intensionally overdosed, but he remembers feeling depressed. I asked him if he would be okay seeing psychiatry and he agreed. I reached out to psychiatry, Dr. Burnette, who will see the patient later today. Objective Physical Examination General Exam: Positive: Alert, Cooperative Eye Exam: Negative: Sclera icteric ENT Exam: Positive: Atraumatic Chest Exam: Positive: Other (Coarse but sounding better) Heart Exam: Positive: Rate Normal, Irregular Rhythm Abdomen Exam: Positive: Normal bowel sounds, Soft; Negative: Tenderness Extremity Exam: Positive: Edema (Bilateral pitting edema) Neuro Exam: Positive: Normal Speech Psych Exam: Positive: Mental status NL, Mood NL Assessment /Plan Assessment Mr. Kirkpatrick is a 41 year old male with hypertension and obesity who is here for toxic metabolic encephalopathy secondary to polysubstance abuse and MSSA pneumonia. Patient subsequently developed C. difficile. Patient was intubated on 08/18/2021 and extubated on 08/27/2021. Patient had completed a 7-day course of cefazolin for MSSA pneumonia. Bronc was performed on 08/26/2021 and new sputum culture pending. Antibiotic was discontinued to help with the C. difficile diarrhea. Patient had been on 5 days of p.o. Vanco without improvement. Patient was started on Dificid. Reached out to psychiatry today, pending recommendations. Plan/VTE VTE Prophylaxis Ordered?: Yes Plan 1. Acute hypoxic respiratory failure status post intubation Secondary to MSSA pneumonia Complete 7 days of cefazolin Sputum culture from bronch on 08/26/21 was negative -Repeat sputum culture from 08/28/21 grew some yeast like organisms Otherwise continue hypertonic saline, guaifenesin, Acapella, and chest PT PT, OT, and ST consulted status post extubation 2. C. difficile diarrhea Did not improve with 5 days p.o. vancomycin Switch to Dificid day 8 (will need 10 to 14 days) 3. Recurrent fever Possibly secondary to C. difficile diarrhea versus rash on peritoneum (fungal) Continue Dificid Sputum culture from 08/26/21 grew decreased normal otilio. Sputum culture from 08/28/21 grew yeast Of note Legionella and strep pneumo were both negative -There is consideration of possible fungal infection. [id number] pending and fungal culture obtained. Patient started on Fluconazole -Pulmonary/critical care consulted ID, recommendations appreciated 4. Atrial fibrillation with RVR Echocardiogram on 08/21/2021 demonstrates EF of 60% -Continue Lopressor 50mg BID -Continue digoxin, check digoxin level in the morning 5. ISABELLA On admission creatinine was 3.75 Resolved, creatinine now at baseline 6. DVT prophylaxis Lovenox Disposition: Pending clinical improvement. Physical therapy and occupational therapy recommending rehab. Psychiatry consulted, recommendations appreciated. VS, I&O, 24H, Fishbone Vital Signs/I&O Vital Signs Date Time Temp Pulse Resp B/P (MAP) Pulse Ox O2 Delivery O2 Flow Rate FiO2 08/31/21 08:42 88 141/81 08/31/21 06:00 98.1 18 98 Room Air 08/30/21 04:00 3.0 08/29/21 04:00 40 l I&O- Last 24 Hours up to 6 AM 08/31/21 06:00 Intake Total 4740 ml Output Total 1025 ml Balance 3715 ml Laboratory Data 24H LABS Laboratory Tests 2 08/31/21 05:14: Nucleated Red Blood Cells % (auto) 0.0, Anion Gap 6L, Glomerular Filtration Rate > 60.0, Calcium Level 7.8L, Magnesium Level 1.6L CBC/BMP Laboratory Tests 08/31/21 05:14 Microbiology Microbiology 08/28/21 Gram Stain - Final, Complete 08/28/21 Bacterial Culture - Final, Complete Staphylococcus Epidermidis Yeast Like Organism 08/26/21 Gram Stain - Final, Complete 08/26/21 Sputum Culture - Final, Complete 08/21/21 Blood Culture - Final, Complete Staphylococcus Epidermidis 08/21/21 Blood Culture - Final, Complete NO GROWTH AFTER 5 DAYS PRIMITIVO MAYORGA DO Aug 31, 2021 14:13
--- NOTE | 2021-08-31 15:07 | MHCRPDOC ---
[facility] Consultation Consultation DATE OF CONSULTATION: 08/31/21 CONSULTATION REQUESTED BY: Satya Rose DO REASON FOR CONSULTATION: Toxic metabolic encephalopathy secondary to overdose. RELEVANT HISTORY: Taco is a 41-year-old man who reports that he has been undergoing stress and some depression recently, in June of this year the mother of his children decided to leave him after cheating on him with their two 7-month-old children. He states that he has been struggling with this and has not returned to work at this time, he also endorses having a long standing history of polysubstance use, primarily marijuana, and notes that he has not got remember what happened that led him to the hospital. He does have memories of being told that a friend found him unresponsive after calling a welfare check him because they have not heard from him for several days. He endorses that this was not a suicide attempt he does not want to , he states that he primarily wants to be able to see his children but has been frustrated because his expartner has placed an order protection against him due to statements he made when he found her cheating on him. He does feel that having a therapist would be helpful for him to manage some of his feelings over the situation, but denies any need for inpatient hospitalization at this time. PAST PSYCHIATRIC HISTORY: No prior psychiatric history PAST MEDICAL HISTORY: Hypertension FAMILY HISTORY: Denies knowledge of any psychiatric conditions within the family, denies a history of known psychiatric hospitalizations or suicide Hipps of the family. PERSONAL AND SOCIAL HISTORY: The patient was born and raised in [place]. 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 MENTAL STATUS EXAMINATION: Patient is a 41-year old male, who is dressed in hospital clothing, laying in bed, makes good eye contact and is pleasant and cooperative for the interview. Speech is speech was spontaneous, clear, with regular rate, rhythm, and volume. Language skills are intact. Thought processes including: Logical, linear, goal. Thought content: Denies SI, HI, AVH; focused when we will see his children, states that he would like to have help managing his depression and his anger. Abstract reasoning, and computation: Intact. Description of associations: Intact, linear. Description of abnormal or psychotic thoughts: Denies SI, HI, AVH; did not appear paranoid or delusional during the interview. Judgment: Fair. Insight: Fair. Orientation to x3. Recent and remote memory: Mostly intact, has some amnesia related to events that brought him to the hospital. Attention span and concentration: Intact. Fund of knowledge: Appropriate for education level. Mood: "A little depressed". Affect: Generally euthymic, full range, he will use humor appropriately, congruent with stated mood and thought content. DIAGNOSIS: 1. Adjustment disorder with depressed mood. 2. Cannabis use disorder, severe 3. Other substance use disorder (amphetamines), severe 4. Other substance use disorder (cocaine), severe PLAN: 1. Patient appears stable at this time, he regularly denies that this is a suicide attempt between him in the hospital. He states that he had no intentions of dying and has never had thoughts about doing so in the past. Overall he appears quite forthright with his situation and is open about his drug use. He does not currently meet criteria for involuntary hospitalization at this time, and I feel that he would be safe to return home. Taco is interested in the idea of receiving outpatient treatment for psychotherapy, and would be open to receiving information regarding options available to him in the area.. 2. Discharge to home when primary team feels is medically appropriate, please provide with information regarding mental health services in the area. Vital Signs Vital Signs Date Time Temp Pulse Resp B/P (MAP) Pulse Ox O2 Delivery O2 Flow Rate FiO2 08/31/21 14:00 98.3 62 18 115/61 (79) 95 Room Air 08/30/21 04:00 3.0 08/29/21 04:00 40 Laboratory Data 24H Labs Laboratory Tests 2 08/31/21 05:14: Nucleated Red Blood Cells % (auto) 0.0, Anion Gap 6L, Glomerular Filtration Rate > 60.0, Calcium Level 7.8L, Magnesium Level 1.6L Home Medications Current Medications Current Medications Medications (Trade) Dose Ordered Sig/Gerry Route PRN Reason Start Time Stop Time Status Last Admin Dose Admin Acetaminophen (Tylenol Suspension) 650 mg Q4HP PRN GT MILD PAIN or TEMP > 101 08/21/21 07:45 08/27/21 10:59 DC 08/27/21 09:37 Acetaminophen (Tylenol Suspension) 650 mg Q4HP PRN PO MILD PAIN or TEMP > 101 08/27/21 20:00 08/29/21 08:59 DC 08/29/21 08:44 Acetaminophen (Tylenol Suspension) 650 mg Q6HP PRN PO MILD PAIN or TEMP > 101 08/27/21 15:05 08/27/21 15:58 DC 08/27/21 15:15 Acetaminophen (Tylenol Tab) 650 mg Q4HP PRN PO MILD PAIN or TEMP > 101 08/29/21 12:00 Acetaminophen (Tylenol Tab) 650 mg Q6HP PRN PO MILD PAIN or TEMP > 101 08/27/21 12:00 Cancel Cefazolin Sodium/ Dextrose 2 gm/IV Miscellaneous Supplies 50 ml @ 75 mls/hr Q8H IV 08/20/21 11:00 08/20/21 13:45 DC Cefazolin Sodium/ Dextrose 2 gm/IV Miscellaneous Supplies 50 ml @ 75 mls/hr Q8H IV 08/20/21 14:00 08/27/21 08:53 DC 08/27/21 05:26 Cefepime HCl 2 gm/ Dextrose 50 ml @ 100 mls/hr Q12H IV 08/18/21 16:00 08/20/21 09:08 DC 08/20/21 03:05 Chlorhexidine Gluconate (Peridex Oral Rinse) SWAB/BRUSH ORAL CAVITY BID MT 08/18/21 21:00 08/27/21 10:59 DC 08/27/21 09:20 Dextrose/Sodium Chloride 1,000 ml @ 150 mls/hr Q6H40M IV 08/29/21 11:55 08/31/21 08:37 Digoxin (Lanoxin) 0.125 mg DAILY IV 08/28/21 09:00 08/30/21 12:20 DC 08/30/21 08:06 Digoxin (Lanoxin) 0.125 mg DAILY PO 08/31/21 09:00 08/31/21 08:41 Digoxin (Lanoxin) 0.25 mg Q2H IV 08/28/21 00:15 08/28/21 04:16 DC 08/28/21 04:21 Diltiazem HCl 125 mg/Sodium Chloride 125 ml @ 5 mls/hr Q24H IV 08/25/21 11:00 08/25/21 14:00 DC 08/25/21 11:10 Diltiazem HCl 125 mg/Sodium Chloride 125 ml @ 5 mls/hr Q24H IV 08/27/21 22:00 08/29/21 11:58 DC 08/27/21 21:45 Enoxaparin Sodium (Lovenox) 40 mg DAILY SC 08/24/21 09:00 08/31/21 08:43 Fentanyl Citrate (Sublimaze) 75 mcg Q2HP PRN IV SEVERE PAIN (PS 8-10) 08/18/21 17:25 08/27/21 10:59 DC 08/25/21 10:59 Fentanyl Citrate 1000 mcg/Sodium Chloride 100 ml @ 2 mls/hr Q24H IV 08/18/21 15:20 08/18/21 15:27 DC Fentanyl Citrate 1000 mcg/Sodium Chloride 100 ml @ 5 mls/hr Q20H IV 08/18/21 16:00 08/27/21 10:59 DC 08/27/21 05:26 Fidaxomicin (Dificid) 200 mg BID PO 08/25/21 21:00 08/31/21 08:41 Fluconazole (Diflucan Tablet) 100 mg QHS PO 08/29/21 21:00 09/03/21 20:59 08/30/21 20:44 Fluconazole 100 mg/IV Miscellaneous Supplies 50 ml @ 50 mls/hr Q24H IV 08/28/21 12:00 08/29/21 18:47 DC 08/29/21 12:59 Guaifenesin (Mucinex Tab Er) 600 mg BID PO 08/27/21 09:00 08/27/21 14:53 DC Guaifenesin (Robitussin) 5 ml Q4HP PRN PO COUGH 08/27/21 14:55 08/28/21 20:23 Heparin Sodium (Heparin (Flush)) 200 units ASDIRECTED PRN IV SEE LABEL COMMENTS 08/30/21 18:35 Heparin Sodium (Heparin (Flush)) 200 units PICC IV 08/31/21 06:00 08/31/21 05:10 Heparin Sodium (Porcine) (Heparin) 5,000 units Q8H SC 08/18/21 22:00 08/23/21 09:02 DC 08/23/21 05:08 Home Med (Home Med List Complete!) ASDIRECTED XX 08/18/21 15:15 08/18/21 15:19 DC Labetalol HCl (Normodyne, Trandate) 10 mg Q6H PRN IV sbp>200 08/20/21 13:45 08/22/21 07:41 DC Lactated Ringer's 1,000 ml @ 50 mls/hr Q20H IV 08/19/21 12:00 08/23/21 09:00 DC 08/21/21 21:58 Lactated Ringer's 1,000 ml @ 75 mls/hr [id number] IV 08/18/21 16:05 08/18/21 17:06 DC 08/18/21 16:11 Levalbuterol HCl (Xopenex Neb) 1.25 mg Q6HP PRN NEB SHORTNESS OF BREATH 08/18/21 15:10 08/30/21 15:11 Lorazepam (Ativan) 2 mg Q1HP PRN IV AGITATION 08/27/21 22:10 08/30/21 12:20 DC 08/27/21 23:16 Magnesium Sulfate/ Dextrose 1 gm/IV Miscellaneous Supplies 100 ml @ 100 mls/hr Q1H IV 08/31/21 08:00 08/31/21 09:59 DC 08/31/21 10:11 Metoprolol Tartrate (Lopressor) 5 mg Q4HP PRN IV HR > 100 08/27/21 15:55 08/30/21 12:20 DC 08/27/21 20:14 Metoprolol Tartrate (Lopressor) 5 mg STAT STAT IV 08/25/21 11:05 08/25/21 11:06 DC 08/25/21 10:54 Metoprolol Tartrate (Lopressor) 25 mg BID PO 08/25/21 09:00 08/27/21 20:47 DC 08/27/21 20:17 Metoprolol Tartrate (Lopressor) 50 mg BID PO 08/28/21 09:00 08/29/21 11:58 DC 08/29/21 08:32 Metoprolol Tartrate (Lopressor) 50 mg TID PO 08/29/21 09:00 Cancel Metoprolol Tartrate (Lopressor) 50 mg TID PO 08/29/21 16:00 08/31/21 08:42 Midazolam HCl (Versed) 2 mg Q15MP PRN IV ANXIETY 08/18/21 17:25 08/27/21 10:59 DC 08/27/21 03:40 Midazolam HCl (Versed) 2 mg STAT STAT IV 08/18/21 11:44 08/18/21 11:46 DC 08/18/21 11:55 Midazolam HCl 100 mg/Dextrose 100 ml @ 2 mls/hr Q24H IV 08/18/21 12:30 08/18/21 17:47 DC 08/18/21 12:45 Midazolam HCl 100 mg/Dextrose 100 ml @ 2 mls/hr Q24H IV 08/18/21 20:00 08/21/21 14:42 DC 08/20/21 23:07 Midazolam HCl 100 mg/Dextrose 100 ml @ 4 mls/hr Q24H IV 08/21/21 19:00 08/27/21 10:59 DC 08/26/21 15:46 Naloxone HCl (Narcan) 2 mg STAT STAT IV 08/18/21 14:19 08/18/21 14:20 DC 08/18/21 12:08 Non-Formulary Medication ( See Comment Field Below ) [facility]. DOSING ASDIRECTED XX 08/18/21 16:15 Cancel Non-Formulary Medication (Refrigerator Pantoja) Q1M PRN XX SEE LABEL COMMENTS 08/18/21 12:30 08/18/21 17:05 DC Non-Formulary Medication (Refrigerator Pantoja) Q1M PRN XX SEE LABEL COMMENTS 08/18/21 15:25 08/24/21 08:16 DC Non-Formulary Medication (Refrigerator Pantoja) Q1M PRN XX SEE LABEL COMMENTS 08/18/21 17:25 08/24/21 08:16 DC Non-Formulary Medication (Refrigerator Pantoja) Q1M PRN XX SEE LABEL COMMENTS 08/21/21 16:45 08/27/21 16:16 DC Nystatin (Mycostatin) topical cream to butt... BID TOP 08/29/21 09:00 08/31/21 08:43 Pantoprazole Sodium (Protonix) 40 mg DAILY IV 08/19/21 09:00 08/26/21 09:55 DC 08/26/21 08:17 Potassium Chloride 20 meq/ IV Miscellaneous Supplies 100 ml @ 100 mls/hr Q2H IV 08/24/21 10:00 08/24/21 12:59 DC 08/24/21 12:42 Propofol 1000 mg/ IV Miscellaneous Supplies 100 ml @ 7.38 mls/hr Q12H IV 08/18/21 17:25 08/27/21 10:59 DC 08/27/21 07:46 Sodium Bicarbonate 150 meq/Dextrose/Water 1,150 ml @ 50 mls/hr Q23H IV 08/18/21 18:00 08/19/21 11:18 DC 08/19/21 04:47 Sodium Bicarbonate (Sodium Bicarbonate) 50 meq STAT STAT IV 08/18/21 12:00 08/18/21 12:01 DC 08/18/21 11:59 Sodium Chloride 1,000 ml @ 100 mls/hr Q10H IV 08/18/21 11:15 08/18/21 17:06 DC 08/18/21 11:50 Sodium Chloride (Saline Lock Flush) 10 ml ASDIRECTED PRN IV SEE LABEL COMMENTS 08/30/21 18:35 Sodium Chloride (Saline Lock Flush) 10 ml PICC IV 08/31/21 06:00 08/31/21 05:10 Sodium Chloride (Sodium Chloride 3% Neb Martha) 2.5 ml RQ4H INH 08/27/21 16:00 08/31/21 09:58 DC 08/31/21 03:00 Vancomycin HCl (First-Vancomycin 50(Firvanq)- 250mg/5ml) 125 mg Q6H PO 08/21/21 18:00 08/26/21 10:04 DC 08/26/21 04:54 No Active Prescriptions or Reported Meds Allergies Coded Allergies: No Known Allergies (Unverified , 12/03/17) HARSH DONOVAN MD Aug 31, 2021 15:06
[2021-08-31 15:29] LABS: DIGOXIN LEVEL 0.5 NG/ML (0.5-2.0)
[2021-08-31] MEDS: FLUCONAZOLE 100 MG TAB PO SCH (21:41)
[2021-08-31 22:00] VITALS: BP 142/69
[2021-09-01 06:00] VITALS: BP 138/87
[2021-09-01] MEDS: SODIUM CHLORIDE 0.9% INJ 10 ML SYR IV SCH ×2 (06:27→17:08)
[2021-09-01] MEDS: D5W/0.45% SODIUM CHLORIDE 1,000 ML IV SCH ×4 (06:29→23:58)
[2021-09-01 07:26] LABS: HEMATOCRIT 36.9 % (42.0-52.0); MEAN CORPUSCULAR HEMOGLOBIN 29.4 pg (27.0-33.0); MEAN CORPUSCULAR HGB CONC 32.5 g/dl (32.0-36.5); MEAN CORPUSCULAR VOLUME 90.4 fl (80.0-96.0); PLATELET COUNT, AUTOMATED 550 10^3/uL (150-450); RED BLOOD COUNT 4.08 10^6/uL (4.30-6.10); WHITE BLOOD COUNT 12.3 10^3/uL (4.0-10.0)
[2021-09-01 07:45] LABS: BLOOD UREA NITROGEN 13 MG/DL (7-18); CARBON DIOXIDE LEVEL 26 MEQ/L (21-32); CHLORIDE LEVEL 109 MEQ/L (98-107); CREATININE FOR GFR 0.58 MG/DL (0.70-1.30); GLOMERULAR FILTRATION RATE > 60.0 (>60); GLUCOSE, FASTING 111 MG/DL (70-100); MAGNESIUM LEVEL 1.8 MG/DL (1.8-2.4); POTASSIUM SERUM 3.5 MEQ/L (3.5-5.1); SODIUM LEVEL 142 MEQ/L (136-145)
[2021-09-01] MEDS: FIDAXOMICIN 200 MG TAB (DIFICID) PO SCH ×2 (10:46→20:25)
[2021-09-01] MEDS: METOPROLOL TART 50 MG TAB PO SCH ×3 (10:46→22:23)
[2021-09-01] MEDS: DIGOXIN 0.125 MG TAB PO SCH (10:46)
[2021-09-01] MEDS: ENOXAPARIN 40MG/0.4ML SYRINGE (J1650 PER 10MG) SC SCH (10:47)
[2021-09-01] MEDS: NYSTATIN CREAM 15 GM TOP SCH ×2 (10:47→20:26)
--- NOTE | 2021-09-01 13:03 | IPNPDOC ---
Subjective Date Seen The patient was seen on 09/01/21. Subjective Chief Complaint/HPI Mr. Kirkpatrick is a 41 year old male with hypertension and obesity who is here for toxic metabolic encephalopathy secondary to polysubstance abuse and MSSA pneumonia. Patient continues to be afebrile. Last fever 08/29/21. He is looking better this morning. He denies any chest pain or dyspnea. He tells me his bowel movement are less frequent. Psychiatry evaluated patient and patient is psychiatrically stable. Patient did not meet criteria for involuntary hospitalization. Otherwise, I anticipate patient will need rehab. Objective Physical Examination General Exam: Positive: Alert, Cooperative Eye Exam: Negative: Sclera icteric ENT Exam: Positive: Atraumatic Chest Exam: Positive: Clear to auscultation Heart Exam: Positive: Rate Normal, Irregular Rhythm Abdomen Exam: Positive: Normal bowel sounds, Soft; Negative: Tenderness Extremity Exam: Positive: Edema (Bilateral pitting edema) Neuro Exam: Positive: Normal Speech Psych Exam: Positive: Mental status NL, Mood NL Assessment /Plan Assessment Mr. Kirkpatrick is a 41 year old male with hypertension and obesity who is here for toxic metabolic encephalopathy secondary to polysubstance abuse and MSSA pneumonia. Patient subsequently developed C. difficile. Patient was intubated on 08/18/2021 and extubated on 08/27/2021. Patient had completed a 7-day course of cefazolin for MSSA pneumonia. Bronc was performed on 08/26/2021 and new sputum culture pending. Antibiotic was discontinued to help with the C. difficile diarrhea. Patient had been on 5 days of p.o. Vanco without improvement. Patient was started on Dificid. Otherwise, patient has been psychiatrically cleared. Anticipate patient will need rehab. Plan/VTE VTE Prophylaxis Ordered?: Yes Plan 1. Acute hypoxic respiratory failure status post intubation Secondary to MSSA pneumonia Complete 7 days of cefazolin Sputum culture from bronch on 08/26/21 was negative -Repeat sputum culture from 08/28/21 grew some yeast like organisms Otherwise continue hypertonic saline, guaifenesin, Acapella, and chest PT PT, OT, and ST consulted status post extubation 2. C. difficile diarrhea Did not improve with 5 days p.o. vancomycin Switch to Dificid day 9 (will need 10 to 14 days) 3. Recurrent fever Possibly secondary to C. difficile diarrhea versus rash on peritoneum (fungal) Continue Dificid Sputum culture from 08/26/21 grew decreased normal otilio. Sputum culture from 08/28/21 grew yeast Of note Legionella and strep pneumo were both negative -There is consideration of possible fungal infection. [id number] pending and fungal culture obtained. Patient started on Fluconazole -Pulmonary/critical care consulted ID, recommendations appreciated 4. Atrial fibrillation with RVR Echocardiogram on 08/21/2021 demonstrates EF of 60% -Continue Lopressor 50mg BID -Continue digoxin, check digoxin level in the morning 5. ISABELLA On admission creatinine was 3.75 Resolved, creatinine now at baseline 6. DVT prophylaxis Lovenox Disposition: Anticipate patient will need rehab. ARU screen placed VS, I&O, 24H, Fishbone Vital Signs/I&O Vital Signs Date Time Temp Pulse Resp B/P (MAP) Pulse Ox O2 Delivery O2 Flow Rate FiO2 09/01/21 10:46 99 09/01/21 10:46 140/87 09/01/21 06:00 97.7 16 99 Room Air 08/30/21 04:00 3.0 08/29/21 04:00 40 I&O- Last 24 Hours up to 6 AM 09/01/21 05:59 Intake Total 2120 ml Balance 2120 ml Laboratory Data 24H LABS Laboratory Tests 2 09/01/21 07:08: Nucleated Red Blood Cells % (auto) 0.0, Anion Gap 7L, Glomerular Filtration Rate > 60.0, Calcium Level 8.0L, Magnesium Level 1.8 CBC/BMP Laboratory Tests 09/01/21 07:08 Microbiology Microbiology 08/28/21 Gram Stain - Final, Complete 08/28/21 Bacterial Culture - Final, Complete Staphylococcus Epidermidis Yeast Like Organism 08/26/21 Gram Stain - Final, Complete 08/26/21 Sputum Culture - Final, Complete PRIMITIVO MAYORGA DO Sep 01, 2021 13:03
[2021-09-01 14:00] VITALS: BP 107/66
[2021-09-01] MEDS: FLUCONAZOLE 100 MG TAB PO SCH (20:25)
[2021-09-01 22:00] VITALS: BP 142/80
[2021-09-01 22:23] VITALS: BP 122/76
[2021-09-02] MEDS: SODIUM CHLORIDE 0.9% INJ 10 ML SYR IV SCH (05:13)
[2021-09-02 05:30] LABS: HEMATOCRIT 36.5 % (42.0-52.0); MEAN CORPUSCULAR HEMOGLOBIN 29.6 pg (27.0-33.0); MEAN CORPUSCULAR HGB CONC 32.9 g/dl (32.0-36.5); MEAN CORPUSCULAR VOLUME 89.9 fl (80.0-96.0); PLATELET COUNT, AUTOMATED 563 10^3/uL (150-450); RED BLOOD COUNT 4.06 10^6/uL (4.30-6.10); WHITE BLOOD COUNT 14.1 10^3/uL (4.0-10.0)
[2021-09-02 06:00] VITALS: BP 134/86
[2021-09-02 06:02] LABS: BLOOD UREA NITROGEN 10 MG/DL (7-18); CALCIUM LEVEL 8.1 MG/DL (8.5-10.1); CARBON DIOXIDE LEVEL 26 MEQ/L (21-32); CHLORIDE LEVEL 107 MEQ/L (98-107); GLOMERULAR FILTRATION RATE > 60.0 (>60); GLUCOSE, FASTING 99 MG/DL (70-100); MAGNESIUM LEVEL 1.6 MG/DL (1.8-2.4); POTASSIUM SERUM 3.7 MEQ/L (3.5-5.1); SODIUM LEVEL 140 MEQ/L (136-145)
[2021-09-02] MEDS: D5W/0.45% SODIUM CHLORIDE 1,000 ML IV SCH (07:00)
[2021-09-02] MEDS ORDERED: FIDA200TA PO (08:26)
[2021-09-02] MEDS: METOPROLOL TART 50 MG TAB PO SCH (08:54)
[2021-09-02] MEDS: FIDAXOMICIN 200 MG TAB (DIFICID) PO SCH (08:55)
[2021-09-02] MEDS: DIGOXIN 0.125 MG TAB PO SCH (08:55)
[2021-09-02] MEDS: ENOXAPARIN 40MG/0.4ML SYRINGE (J1650 PER 10MG) SC SCH (09:00)
[2021-09-02] MEDS: NYSTATIN CREAM 15 GM TOP SCH (09:05)
[2021-09-02 10:20] LABS: HEPATITIS B SURFACE ANTIBODY POSITIVE (POSITIVE)
[2021-09-02 10:37] LABS: HEPATITIS B SURFACE ANTIGEN NEGATIVE (NEGATIVE)
--- NOTE | 2021-09-03 00:02 | DS.PDOC ---
Discharge Summary General Date of Admission Aug 18, 2021 at 15:07 Date of Discharge Sep 02, 2021 Specialist/Consultants Involve Pulmonology/Critical care, Dr. Mathias and Dr. Cameron ID, Dr. Navarro Psychiatry, Dr. Burnette Discharge Summary PROCEDURES PERFORMED DURING STAY: Intubated ADMITTING DIAGNOSES: 1. Acute hypoxic respiratory failure s/p intubation 2. Toxic metabolic encephalopathy 3. MSSA pneumonia 4. C.diff diarrhea 5. Recurrent fevers 6. Atrial fibrillation with rapid ventricular response 7. Acute kidney injury DISCHARGE DIAGNOSES: 1. Acute hypoxic respiratory failure s/p intubation 2. Toxic metabolic encephalopathy 3. MSSA pneumonia 4. C.diff diarrhea 5. Recurrent fevers 6. Atrial fibrillation with rapid ventricular response 7. Acute kidney injury COMPLICATIONS/CHIEF COMPLAINT: Respiratory Failure. HISTORY OF PRESENT ILLNESS: Copied from admitting attending's H&P " 41-year-old male with a notable past medical history of polysubstance abuse was brought in by ambulance for altered mental status. Earlier today a friend called the police to perform a wellness check on the patient as he was unheard of for the past few days. On arrival the patient was minimally responsive. When he arrived to the emergency department he was hemodynamically stable though he was hypothermic and slightly hypoxic requiring nasal cannula. He was he was agitated and was given Ativan to facilitate cooperation with radiology for chest and head imaging. Afterward he became obtunded and had respiratory depression he was given Narcan and his response was severe agitation and combativeness. His blood work came back revealing combined metabolic and respiratory acidosis with a pH of 6.9. He was subsequently intubated and placed mechanical ventilation. Patient is seen and examined at bedside currently. Patient is comfortable on mechanical ventilation. Patient is on Versed drip. Patient is not on any pressors. " HOSPITAL COURSE: Patient was intubated from 08/18/21 to 08/27/21. Patient completed a 7 day course of cefazolin. Otherwise, patient had C.difficile diarrhea. Patient had 5 days of PO vancomycin, but did not have an adequate response. Patient was switched to Fidaxomicin and had good response. ID was consulted for buttock folliculitis and rash that looked fungal. Patient was put on a 5 day course of fluconazole. Patient had PT/OT working with patient and had recommended rehab. Patient had expressed depression and told me he was not sure if his overdose was a suicide attempt. Psychiatry was consulted. Patient was psychiatrically cleared. Today, patient is feeling well and wants to go home. He tells me that his mother bought him a flight back to [place]. I explained to him that he still need rehab. Patient patient did not want to wait for PT re- evaluation as his flight is today. Patient wanted to sign himself AMA. He is A&O x3. He understands the risks of leaving against medical advice which includes falling, injury, debility, sepsis, fever, and . Patient signed out against medical advice. DISCHARGE MEDICATIONS: Please see below. ALLERGIES: Please see below. PHYSICAL EXAMINATION ON DISCHARGE: VITAL SIGNS: Please see below. GENERAL: Comfortable, in no apparent distress. HEENT: EOMI, sclera clear. NECK: Supple. RESPIRATORY: Lungs clear to auscultation bilaterally. CARDIOVASCULAR: Regular rate and rhythm. ABDOMEN: Soft, nontender, no guarding or rebound tenderness. Normal bowel sounds. NEUROLOGICAL: CN 312 grossly intact, no focal deficits noted. PSYCHOLOGICAL: Normal mood and affect LABORATORY DATA: Please see below. IMAGING: Please see chart for radiology reports PROGNOSIS: Guarded ACTIVITY: RW and CGAx2 DIET: Level 2 solids with honey thickened liquids. DISCHARGE PLAN: Initially planned for PT evaluation to finalize determination of rehab. Patient did not want to be re-evaluated and left against medical advice. DISPOSITION: LEFT AGAINST MEDICAL ADVICE. DISCHARGE INSTRUCTIONS: 1. Please follow up with a PCP as soon as possible ITEMS TO FOLLOWUP ON ON OUTPATIENT: 1. Diarrhea 2. Ambulation 3. Swallowing DISCHARGE CONDITION: Stable Total time spent on discharge planning, discharge summary, and medication reconciliation: 25 minutes. Vital Signs/I&Os Vital Signs Date Time Temp Pulse Resp B/P (MAP) Pulse Ox O2 Delivery O2 Flow Rate FiO2 09/02/21 08:55 93 09/02/21 06:00 98.3 17 134/86 (102) 96 Room Air 08/30/21 04:00 3.0 08/29/21 04:00 40 I&O- Last 24 Hours up to 6 AM 09/03/21 06:00 Intake Total 120 ml Balance 120 ml Laboratory Data Labs 24H Laboratory Tests 2 09/02/21 05:20: Nucleated Red Blood Cells % (auto) 0.0, Anion Gap 7L, Glomerular Filtration Rate > 60.0, Calcium Level 8.1L, Magnesium Level 1.6L, Hepatitis B Surface Antigen NEGATIVE, Hepatitis B Surface Antibody POSITIVE CBC/BMP Laboratory Tests 09/02/21 05:20 Microbiology Microbiology 08/28/21 Gram Stain - Final, Complete 08/28/21 Bacterial Culture - Final, Complete Staphylococcus Epidermidis Yeast Like Organism 08/26/21 Gram Stain - Final, Complete 08/26/21 Sputum Culture - Final, Complete Discharge Medications Scheduled Fidaxomicin (Dificid) 200 Mg Tablet, 200 MG PO BID Allergies Coded Allergies: No Known Allergies (Unverified , 12/03/17) PRIMITIVO MAYORGA DO Sep 03, 2021 00:02
[2021-09-03 04:10] LABS: HEPATITIS A IgG TOTAL Positive (Negative); HEPATITIS B CORE ANTIBODY IGG Negative (Negative)
== END 2021-09-02 09:20 | disposition left against medical advice (07) | DRG 951 ==
LOC: M ED 11:12 → M ED INP 15:07 → ENRESERV 16:21 → M PCU 17:00 → M MSPAV 08-30 21:54
PROVIDERS: ADMIT Internal Medicine Pulmonary Disease; ATTEND Internal Medicine
PROC: 5A1955Z Respiratory Ventilation, Greater than 96 Consecutive Hours (ICD-10-PCS; principal; 2021-08-18)
PROC: 05HM3DZ Insertion of Intraluminal Device into Right Internal Jugular Vein, Percutaneous Approach (ICD-10-PCS; 2021-08-18)
PROC: 0B9M8ZZ Drainage of Bilateral Lungs, Via Natural or Artificial Opening Endoscopic (ICD-10-PCS; 2021-08-26)
DX: T43.621A Poisoning by amphetamines, accidental (unintentional), initial encounter (principal); G92.8 Other toxic encephalopathy; A41.9 Sepsis, unspecified organism; J96.01 Acute respiratory failure with hypoxia; J15.211 Pneumonia due to Methicillin susceptible Staphylococcus aureus; E87.4 Mixed disorder of acid-base balance; N17.9 Acute kidney failure, unspecified; J96.02 Acute respiratory failure with hypercapnia; J81.0 Acute pulmonary edema; A04.72 Enterocolitis due to Clostridium difficile, not specified as recurrent; M62.82 Rhabdomyolysis; E88.09 Other disorders of plasma-protein metabolism, not elsewhere classified; I48.0 Paroxysmal atrial fibrillation; T40.5X1A Poisoning by cocaine, accidental (unintentional), initial encounter; T40.711A Poisoning by cannabis, accidental (unintentional), initial encounter; E87.6 Hypokalemia; R68.0 Hypothermia, not associated with low environmental temperature; E66.9 Obesity, unspecified; F12.90 Cannabis use, unspecified, uncomplicated; F43.21 Adjustment disorder with depressed mood; F14.90 Cocaine use, unspecified, uncomplicated

== ENCOUNTER → 2022-02-03 | Outpatient (CLI) | payer MEDICAID ==
[~2022-02-03] MED LIST changes: +FIDA200TA PO; -LISI10TA15 PO; +LISI10TA24 PO
== END ==
LOC: M OUTALCOH 07:46
PROVIDERS: ATTEND Psychiatry & Neurology Psychiatry
DX: Z13.30 Encounter for screening examination for mental health and behavioral disorders, unspecified (principal)

== ENCOUNTER 2022-02-24 16:00 | Outpatient (RCR) | payer MEDICAID | END 2022-03-13 | LOC: M OUTALCOH 16:00 | PROVIDERS: ATTEND Psychiatry & Neurology Psychiatry | DX: F15.20 Other stimulant dependence, uncomplicated (principal); F12.10 Cannabis abuse, uncomplicated; F17.200 Nicotine dependence, unspecified, uncomplicated ==

== ENCOUNTER 2022-11-20 20:17 | Emergency (ER) | payer MEDICAID, OTHER ==
[~2022-11-20] VITALS: Ht 188 cm; Wt 174.0 kg
[2022-11-20] MEDS ORDERED: SODIUM BICARBONATE 8.4% INJ 50ML SYRINGE ONE (20:18)
[2022-11-20] MEDS ORDERED: EPINEPHrine 1MG/10ML SYRINGE 1.5IN ONE (20:18)
== END 2022-11-20 21:40 | disposition expired ==
LOC: M ED 20:17 → EDBD 20:17 → M ED 21:40
DX: I46.9 Cardiac arrest, cause unspecified (principal); I48.91 Unspecified atrial fibrillation; I10 Essential (primary) hypertension; E66.9 Obesity, unspecified; F19.10 Other psychoactive substance abuse, uncomplicated
CPT/HCPCS: 87635; 92950; 99285; J0171

== ENCOUNTER → 2022-11-21 | Outpatient (REF) | LOC: M LAB 08:41 ==